=== PATIENT | female | born 2000 | race Caucasian/White ===

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

== ENCOUNTER → 2019-12-29 | Outpatient (CLI) | payer MEDICAID, SELFPAY ==
[2019-12-29 13:34] VITALS: BMI 30.5
== END | disposition home or self-care (01) ==
LOC: LABSPEC 17:00
PROVIDERS: Referring Provider Obstetrics & Gynecology; Visit Provider Obstetrics & Gynecology
DX: O20.9 Hemorrhage in early pregnancy, unspecified (principal); Z3A.00 Weeks of gestation of pregnancy not specified
CPT/HCPCS: 87086; 87088; 87186

== ENCOUNTER → 2020-01-03 14:41 | Outpatient (CLI) | payer MEDICAID, SELFPAY ==
[2019-12-29 13:34] VITALS: BMI 30.5
--- NOTE | 2020-01-03 14:42 | US_ITS ---
STUDY: FIRST TRIMESTER OBSTETRICAL ULTRASOUND REASON FOR EXAM: Female, 19 years old. Dates. Well-being. LMP: 11/18/2019. TECHNIQUE: Transvaginal TECHNICAL QUALITY: Adequate. PRIOR ULTRASOUND: None. FINDINGS: There is visualization of a single gestational sac in a normal intrauterine position. The mean sac diameter (MSD) measures 0.6 cm, indicating an estimated gestational age (EGA) of 5 weeks, 2 days. The gestational sac shape is within normal limits. There is a visualized yolk sac. The yolk sac measures 0.2 cm. The placenta is non-visualized. There is no demonstrated embryo ( pole). The estimated gestation age (EGA) by LMP is 6 weeks, days. The estimated date of delivery (MARIA T) by LMP is 11/24/2020. The estimated gestation age (EGA) by US is 5 weeks, 2 days. The estimated date of delivery (MARIA T) by US is 09/02/2020. The uterus measures 8.0 x 4.6 x 3.3 cm.. There is no demonstrated uterine fibroid. The cervix is closed. The right ovary measures 3.7 x 1.5 x 2.8 cm. There is no right ovarian cyst. There is no visualized right adnexal mass or complex lesion. Normal vascularity on DOPPLER imaging. The left ovary measures 3.8 x 2.0 x 1.8 cm. There is no left ovarian cyst. There is no visualized left adnexal mass or complex lesion. Normal vascularity on DOPPLER imaging. There is no fluid in the cul de sac. US/Init OB < 14Wks US IMPRESSION: 1. Gestational sac with yolk sac but no pole. Estimated gestational age is 5 weeks, 2 days with MARIA T of 09/02/2020. 2. Normal ovaries. Electronically Signed: Bill Escalera DO at 22:41 EDT Tel [phone], Service support ,
== END ==
PROVIDERS: Referring Provider Obstetrics & Gynecology; Visit Provider Obstetrics & Gynecology
DX: O20.0 Threatened abortion (principal)
CPT/HCPCS: 76801

== ENCOUNTER → 2020-01-10 10:17 | Outpatient (CLI) | payer MEDICAID, SELFPAY ==
[2019-12-29 13:34] VITALS: BMI 30.5
--- NOTE | 2020-01-10 10:17 | US_ITS ---
STUDY: FIRST TRIMESTER OBSTETRICAL ULTRASOUND REASON FOR EXAM: Female, 19 years old bleeding with early preg , f/u prev LMP: 11/18/2019. TECHNIQUE: Transvaginal TECHNICAL QUALITY: Adequate. PRIOR ULTRASOUND: Comparison is made with prior study dated 01/03/2020. FINDINGS: There is no demonstrated intrauterine gestational sac. There is no demonstrated yolk sac. The placenta is non-visualized. There is no demonstrated embryo ( pole). The estimated gestation age (EGA) by LMP is 7 weeks, 4 days. The estimated date of delivery (MARIA T) by LMP is 08/24/2021. The uterus measures 8.4 cm x 4.1 cm x 3.5 cm. The endometrium measures 10 mm. There is a 1.1 cm x 0.6 cm x 0.5 cm hypoechoic density within the endometrial. There is no demonstrated uterine fibroid. The cervix is closed. The right ovary measures 3 cm x 2 cm x 1.9 cm. There is no right ovarian cyst. There is no visualized right adnexal mass or complex lesion. The left ovary measures 3.2 cm x 2.5 cm x 1.4 cm. There is no left ovarian cyst. There is no visualized left adnexal mass or complex lesion. There is no fluid in the cul de sac. US/Init OB < 14Wks US IMPRESSION: No intrauterine gestation seen at this time. Electronically Signed: Chris Rai, at 12:20 EDT , Service support ,
[2020-01-10 11:45] LABS: Absolute Lymphocyte Count 1.62 X10^3/uL (0.83-4.51); Absolute Neutrophil Count 5.1 X10^3/uL (2.0-7.7); Basophil# 0.03 X10^3/uL; Basophil% 0.4 % (0-1); Eosinophil# 0.14 X10^3/uL; Eosinophils% 1.9 % (0-5); Hematocrit 40.7 % (37-47); Hemoglobin 13.7 g/dL (12.0-15.0); Lymphocyte # 1.62 X10^3/ul (4.0); Mean Corp Hgb Conc 33.7 g/dL (32-36); Mean Corpuscular Hgb 29.7 pg (27.0-32.0); Mean Corpuscular Volume 88.3 fL (81-99); Mean Platelet Vol. 9.5 fl (6.2-12.0); Monocyte# 0.47 X10^3/uL; Monocyte% 6.4 % (0-10); NRBC Flagged by Analyzer 0 % (0-5); Neutrophil # 5.11 X10^3/uL (2.7-7.7); Neutrophil % 69.2 % (47-70); Platelet Count 302 K/mm3 (150-450); RBC Distribution Width CV 12.2 % (11.6-14.6); RBC Distribution Width SD 39.4 fl (35.1-43.9); Red Blood Count 4.61 M/mm3 (4.2-5.4); White Blood Count 7.4 K/mm3 (4.4-11.0)
[2020-01-10 12:24] LABS: hCG Titer Quant., Serum 738 mIU/mL (1-3)
== END ==
PROVIDERS: Obstetrics & Gynecology; Referring Provider Obstetrics & Gynecology; Visit Provider Obstetrics & Gynecology
DX: O03.9 Complete or unspecified spontaneous abortion without complication (principal)
CPT/HCPCS: 36415; 76801; 84702; 85025

== ENCOUNTER → 2020-01-12 09:55 | Outpatient (CLI) | payer MEDICAID, SELFPAY ==
[2020-01-12 10:35] LABS: hCG Titer Quant., Serum 209 mIU/mL (1-3)
== END ==
PROVIDERS: Referring Provider Obstetrics & Gynecology; Visit Provider Obstetrics & Gynecology
DX: O03.9 Complete or unspecified spontaneous abortion without complication (principal)
CPT/HCPCS: 36415; 84702

== ENCOUNTER → 2020-07-03 15:07 | Outpatient (CLI) | payer MEDICAID, SELFPAY ==
[2020-01-15 10:11] VITALS: BMI 34.4
[2020-07-03 16:05] LABS: hCG Titer Quant., Serum 1172 mIU/mL (1-3)
== END ==
PROVIDERS: Referring Provider Obstetrics & Gynecology; Visit Provider Obstetrics & Gynecology
DX: N91.2 Amenorrhea, unspecified (principal)
CPT/HCPCS: 36415; 84702

== ENCOUNTER → 2020-07-05 13:01 | Outpatient (CLI) | payer MEDICAID, SELFPAY ==
[2020-01-15 10:11] VITALS: BMI 34.4
[2020-07-05 14:00] LABS: hCG Titer Quant., Serum 2320 mIU/mL (1-3)
== END ==
PROVIDERS: Referring Provider Obstetrics & Gynecology; Visit Provider Obstetrics & Gynecology
DX: N91.2 Amenorrhea, unspecified (principal)
CPT/HCPCS: 36415; 84702

== ENCOUNTER 2020-07-12 00:50 | Emergency (ER) | payer MEDICAID, SELFPAY ==
[2020-01-15 10:11] VITALS: BMI 34.4
[2020-07-12 00:51] VITALS: BP 149/97; PULSE 104; RESP 18; TEMP 36.7; O2SAT 97; BMI 37.3
--- NOTE | 2020-07-12 01:00 | ED.VIS.FEGU ---
History of Present Illness 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: Complaint Informant: Patient Pain: - - No pain Issue: Negative for: Vaginal bleeding, Passing clots, Passing tissue Associated Symptoms: Dysuria, Frequency, Hematuria. Negative for: Urgency Test: Positive - around 6-8 wks preg P: 0 Ab: 0 Narrative: For the past 3 to 4 hours, patient has had dysuria and hematuria. She was already urinating frequently, she is 6-8 weeks. She denies any abdominal pain, back pain, nausea, vomiting, fevers, urinating clots, or urinary retention. She denies having any vaginal bleeding, only blood in her urine when she urinates. Patient denies any injury. No other recent illness. Past Medical History - Allergies and Home Meds Allergies/Adverse Reactions: Allergies tree nut Allergy (Verified 07/12/20 00:54) Anaphylaxis Primary Care Physician: Care Physician,No Primary [Primary Care Provider] - Doctors: NAMITA Nick Past Medical History: None Lives: Spouse/ Significant Other Smoking Status: Never smoker Review of Systems General: Denies: Chills, Fever, Sweats Eyes: Denies: Visual changes - bilaterally, Diplopia ENT: Denies: Rhinorrhea, Sore throat Cardiovascular: Denies: Chest pain, Palpitations Respiratory: Denies: Dyspnea, Cough, Dyspnea on exertion Gastrointestinal: Denies: Abdominal pain, Nausea, Vomiting, Diarrhea, Melena, Hematochezia Genitourinary: Reports: Dysuria, Hematuria, Frequency Musculoskeletal: Denies: Back pain, Extremity Pain Skin: Denies: Rash, Wounds Neurological: Denies: Headache, Weakness, Numbness Physical Exam Vital Signs/Narrative: Vital Signs Temp Pulse Resp BP Pulse Ox 07/12/20 00:51 98.1 F 104 H 18 149/97 H 97 Inital Vital Signs reviewed: Yes General: Well nourished, Well developed, - - well-appearing, nad. pt has grossly mildly bloody urine with no visible clots in specimen cup. Head: Normocephalic, Atraumatic Eyes: Perrl, EOMI ENT: Moist mucous membranes, No rhinorrhea Neck: Supple, Nontender Cardiovascular: Regular rate, Regular rhythm, No murmurs. Negative for: Tachycardia Respiratory: No distress, CTA bilaterally, Chest nontender Abdomen: Soft, Nontender, Nondistended, Normal bowel sounds Back: Nontender, Normal Inspection. Negative for: CVA tenderness Extremities: Nontender, No edema Skin: Normal color, No rash Neurological: Alert, Oriented x3, Cranial nerves II-XII grossly intact, Normal Strength, Normal Sensation, Normal Gait Psychological: Normal affect, Normal Mood Diagnostic/Tx/Re-eval Laboratory Tests 07/12/20 Range/Units 00:59 Urine Color Red (Yellow) Urine Clarity Cloudy (Clear) Urine pH 5.0 (5.0 - 8.0) Ur Specific [place] 1.015 (1.002-1.030) Urine Protein 100 H (Negative) mg/dl Urine Glucose (UA) Normal (Normal) mg/dl Urine Ketones 15 H (Negative) mg/dl Urine Occult Blood 250 H (Negative) /ul Urine Nitrite Negative (Negative) Urine Bilirubin Negative (Negative) mg/dL Urine Urobilinogen Normal (Normal) mg/dl Ur Leukocyte Esterase 500 H (Negative) /ul Urine RBC > 100 SEEN (0-5) /hpf Urine WBC 50-100 SEEN (0-5) /hpf Ur Squamous Epith Cells 0 SEEN (5-10) /hpf Urine Bacteria 0 SEEN (None Seen) /hpf Urine Mucus 0 SEEN (<or=2+) /hpf - Medical Decision/Diagnostic Studies Urinalysis consistent with infection, which is the most likely etiology of her hematuria. Discussed reasons to return especially urinary retention, fevers chills, or symptoms of pyelonephritis, but at this time she does not have any of that so we will treating her with Macrobid would be reasonable. Sent for culture advised to follow-up. ED Disposition - Plan for ED Patient: Disposition: Home or Assisted Living Diagnosis: Hemorrhagic cystitis, First trimester Instructions: ED Bladder Infection, Female (Adult) Prescriptions: Nitrofurantoin Macrocrystals [Macrobid] 100 mg PO Q12 #14 capsule Prescription Printed Referrals: Liset Nick MD [STAFF PHYSICIAN] - 3-5 Days if not improving
[2020-07-12 01:06] LABS: Bacteria 0 SEEN /hpf (None Seen); Mucous, Urine 0 SEEN /hpf (<or=2+); Squamous Epithelial Cells - UA 0 SEEN /hpf (5-10)
[2020-07-12 01:08] LABS: Color, Urine Red (Yellow); Glucose, Dipstick Normal (Normal); Ketone-Dipstick 15 mg/dl (Negative); Leukocyte Esterase-Dipstick 500 /ul (Negative); Nitrite-Dipstick Negative (Negative); Occult Blood-Urine 250 /ul (Negative); Protein-Dipstick 100 mg/dl (Negative); Specific Gravity, Urine 1.015 (1.002-1.030); Urine Bilirubin Dipstick Negative (Negative); Urine Clarity Cloudy (Clear); Urine Urobilinogen Normal (Normal)
[2020-07-12 01:15] LABS: White Blood Cells 50-100 SEEN /hpf (0-5)
[2020-07-12 01:16] LABS: Red Blood Cells-Urine > 100 SEEN /hpf (0-5)
[2020-07-12] MEDS: Nitrofurantoin Macrocrystals 100 MG Capsule PO (01:27)
== END 2020-07-12 01:30 | disposition home or self-care (01) ==
PROVIDERS: Emergency Provider Emergency Medicine
DX: O23.11 Infections of bladder in pregnancy, first trimester (principal); Z3A.01 Less than 8 weeks gestation of pregnancy
CPT/HCPCS: 36415; 81001; 84702; 87086; 87088; 87186; 99283

== ENCOUNTER → 2020-07-12 12:52 | Outpatient (CLI) | payer MEDICAID, SELFPAY ==
[2020-07-12 00:51] VITALS: BMI 37.3
[2020-07-12 13:58] LABS: hCG Titer Quant., Serum 21802 mIU/mL (1-3)
== END ==
PROVIDERS: Referring Provider Obstetrics & Gynecology; Visit Provider Obstetrics & Gynecology
DX: N30.91 Cystitis, unspecified with hematuria (principal)
CPT/HCPCS: 36415; 84702

== ENCOUNTER → 2020-08-05 | Outpatient (CLI) | payer MEDICAID, SELFPAY ==
[2020-08-05 09:27] VITALS: BMI 37.3
[2020-08-05 14:41] LABS: Amphetamine Urine VISTA NEGATIVE (<1000 ng/mL); Barbiturate Urine VISTA NEGATIVE (< 200 ng/mL); Benzodiazepine Urine VISTA NEGATIVE (< 200 ng/mL); Cocaine Urine VISTA NEGATIVE (< 300 ng/mL); Ecstacy Urine VISTA NEGATIVE (< 500 ng/mL); Methadone Urine VISTA NEGATIVE (< 300 ng/mL); PCP Urine VISTA NEGATIVE (< 25 ng/mL); THC Urine VISTA NEGATIVE (< 50 ng/mL); Vista UDS pH Range 6
[2020-08-06 20:07] LABS: Chlamydia By Nucleic Acid AMP Negative (Negative)
[2020-08-07 12:47] LABS: Gonococcus By Nucleic Acid AMP Negative (Negative)
[2020-08-07 16:48] LABS: HPV Reflexed? NOT INDICATED
== END | disposition home or self-care (01) ==
LOC: LABSPEC 13:01
PROVIDERS: Referring Provider Obstetrics & Gynecology; Visit Provider Obstetrics & Gynecology
DX: Z34.90 Encounter for supervision of normal pregnancy, unspecified, unspecified trimester (principal); Z12.4 Encounter for screening for malignant neoplasm of cervix; Z11.3 Encounter for screening for infections with a predominantly sexual mode of transmission
CPT/HCPCS: 80307; 87077; 87086; 87088; 87186; 87491; 87591; 88175; G0145

== ENCOUNTER → 2020-08-19 10:20 | Outpatient (CLI) | payer MEDICAID, SELFPAY ==
[2020-08-05 09:27] VITALS: BMI 37.3
[2020-08-19 10:58] LABS: Absolute Lymphocyte Count 1.62 X10^3/uL (0.83-4.51); Absolute Neutrophil Count 6.1 X10^3/uL (2.0-7.7); Basophil# 0.02 X10^3/uL; Basophil% 0.2 % (0-1); Eosinophil# 0.06 X10^3/uL; Eosinophils% 0.7 % (0-5); Hematocrit 38.2 % (37-47); Hemoglobin 13.1 g/dL (12.0-15.0); Lymphocyte # 1.62 X10^3/ul (0.83-4.51); Lymphocyte % 19.4 % (19-41); Mean Corp Hgb Conc 34.3 g/dL (32-36); Mean Corpuscular Hgb 29.8 pg (27.0-32.0); Monocyte# 0.52 X10^3/uL; Monocyte% 6.2 % (0-10); NRBC Flagged by Analyzer 0 % (0-5); Neutrophil # 6.08 X10^3/uL (2.7-7.7); Neutrophil % 73.1 % (47-70); Platelet Count 270 K/mm3 (150-450); RBC Distribution Width CV 12.4 % (11.6-14.6); RBC Distribution Width SD 39.6 fl (35.1-43.9); Red Blood Count 4.39 M/mm3 (4.2-5.4); White Blood Count 8.3 K/mm3 (4.4-11.0)
[2020-08-19 11:33] LABS: Glucose Challenge Gest 1H 50g 68 mg/dL (70-140)
[2020-08-19 12:11] LABS: NATERA MAILED SPECIMEN
[2020-08-19 12:20] LABS: HIV - WCH Non-Reactive (Nonreactive); Hepatitis B Surface Antigen Non-Reactive (Nonreactive); Hepatitis C Antibody Non-Reactive (Nonreactive); Rubella IgG Reactive (Nonreactive); Syphilis Antibodies Non-reactive
== END ==
PROVIDERS: Referring Provider Obstetrics & Gynecology; Visit Provider Obstetrics & Gynecology
DX: Z34.81 Encounter for supervision of other normal pregnancy, first trimester (principal); Z31.430 Encounter of female for testing for genetic disease carrier status for procreative management
CPT/HCPCS: 36415; 82950; 85025; 86703; 86762; 86780; 86803; 86850; 86900; 86901; 87340

== ENCOUNTER → 2020-12-27 12:28 | Outpatient (CLI) | payer MEDICAID, SELFPAY ==
[2020-12-27 13:50] LABS: Absolute Lymphocyte Count 1.29 X10^3/uL (0.83-4.51); Basophil# 0.03 X10^3/uL; Basophil% 0.3 % (0-1); Eosinophil# 0.05 X10^3/uL; Eosinophils% 0.5 % (0-5); Hematocrit 37.5 % (37-47); Hemoglobin 12.3 g/dL (12.0-15.0); Lymphocyte # 1.29 X10^3/ul (0.83-4.51); Lymphocyte % 11.8 % (19-41); Mean Corp Hgb Conc 32.8 g/dL (32-36); Mean Corpuscular Hgb 29.1 pg (27.0-32.0); Mean Corpuscular Volume 88.7 fL (81-99); Monocyte# 0.46 X10^3/uL; Monocyte% 4.2 % (0-10); NRBC Flagged by Analyzer 0 % (0-5); Neutrophil # 9.03 X10^3/uL (2.7-7.7); Neutrophil % 82.2 % (47-70); Platelet Count 291 K/mm3 (150-450); RBC Distribution Width CV 13.2 % (11.6-14.6); RBC Distribution Width SD 42.7 fl (35.1-43.9); Red Blood Count 4.23 M/mm3 (4.2-5.4)
[2020-12-27 14:24] LABS: Glucose Challenge Gest 1H 50g 137 mg/dL (70-140)
== END ==
PROVIDERS: Referring Provider Obstetrics & Gynecology; Visit Provider Obstetrics & Gynecology
DX: O09.90 Supervision of high risk pregnancy, unspecified, unspecified trimester (principal); Z13.1 Encounter for screening for diabetes mellitus
CPT/HCPCS: 36415; 82950; 85025

== ENCOUNTER → 2021-01-03 06:40 | Outpatient (CLI) | payer MEDICAID, SELFPAY ==
[2021-01-03 07:43] LABS: Glucose GTT-Gestation. Fasting 86 mg/dL (<105)
== END ==
PROVIDERS: Obstetrics & Gynecology; Referring Provider Obstetrics & Gynecology; Visit Provider Obstetrics & Gynecology
DX: Z13.1 Encounter for screening for diabetes mellitus (principal)
CPT/HCPCS: 36415; 82951; 82952

== ENCOUNTER → 2021-01-08 06:37 | Outpatient (CLI) | payer MEDICAID, SELFPAY | PROVIDERS: Referring Provider Obstetrics & Gynecology; Visit Provider Obstetrics & Gynecology | DX: Z00.00 Encounter for general adult medical examination without abnormal findings (principal) ==

== ENCOUNTER → 2021-01-20 | Outpatient (CLI) | payer MEDICAID, SELFPAY | END | disposition home or self-care (01) | LOC: LABSPEC 15:50 | PROVIDERS: Referring Provider Nurse Practitioner Women's Health; Visit Provider Nurse Practitioner Women's Health | DX: N76.0 Acute vaginitis (principal) | CPT/HCPCS: 87070; 87205 ==

== ENCOUNTER → 2021-02-10 13:46 | Outpatient (CLI) | payer MEDICAID, SELFPAY ==
--- NOTE | 2021-02-10 13:48 | US_ITS ---
STUDY: SECOND AND THIRD TRIMESTER OBSTETRICAL ULTRASOUND - LIMITED REASON FOR EXAM: Female, 20 years old growth LMP: 06/01/2020. PRIOR ULTRASOUND: None. TECHNIQUE: Transabdominal TECHNICAL QUALITY: Adequate. FINDINGS: There is a single intrauterine fetus. The fetus is in a cephalic presentation. There is demonstrated cardiac activity with a heart rate of 158 bpm. There is a normal amniotic fluid volume. The largest amniotic fluid pocket measures 5.73 cm. The amniotic fluid index (CHER) is 14.65 cm. The placenta is anterior in location and is not low lying. There are Grade 2 placental changes. BIOMETRY: BPD: 8.67 cm: 34 weeks, 6 days HC: 31.69 cm: 35 weeks, 4 days AC: 33.99 cm: 37 weeks, 6 days FL: 7.06 cm: 37 weeks, 1 days Age by LMP: 36 weeks, 2 days. MARIA T by LMP: 03/08/2021. age by current US: 37 weeks, 1 days. MARIA T by current US: 03/09/2021. Estimated weight: 3105 grams, +/- 466 grams, 73 percentile. US/OB Limited With Biometrics IMPRESSION: Single live uterine gestation with a mean gestational age of 37 weeks and 1 day. Electronically Signed: Chris Rai MD at 10:41 EST , Service support ,
== END ==
PROVIDERS: Referring Provider Obstetrics & Gynecology; Visit Provider Obstetrics & Gynecology
DX: O09.93 Supervision of high risk pregnancy, unspecified, third trimester (principal); O99.213 Obesity complicating pregnancy, third trimester; E66.9 Obesity, unspecified; Z3A.37 37 weeks gestation of pregnancy
CPT/HCPCS: 76816

== ENCOUNTER 2021-03-02 06:45 | Inpatient (IN) | payer MEDICAID, SELFPAY ==
[2021-03-02] VITALS (132 sets, daily range): BP systolic 95–143; BP diastolic 56–87; PULSE 54–164; TEMP 36–37.4; O2SAT 74–100; BMI 38.7
[2021-03-02] MEDS: Lactated Ringers 1,000 ML 50 ML IV (07:40)
[2021-03-02] MEDS: Oxytocin 30 units/NS 500 ml 30 UNITS/500 ML IV.SOLN IV (08:00)
[2021-03-02 08:06] LABS: Absolute Lymphocyte Count 1.73 X10^3/uL (0.83-4.51); Absolute Neutrophil Count 7.7 X10^3/uL (2.0-7.7); Basophil# 0.02 X10^3/uL; Basophil% 0.2 % (0-1); Eosinophil# 0.07 X10^3/uL; Eosinophils% 0.7 % (0-5); Hematocrit 34.3 % (37-47); Hemoglobin 11.6 g/dL (12.0-15.0); Lymphocyte # 1.73 X10^3/ul (0.83-4.51); Lymphocyte % 17.1 % (19-41); Mean Corp Hgb Conc 33.8 g/dL (32-36); Mean Corpuscular Volume 85.8 fL (81-99); Mean Platelet Vol. 9.8 fl (6.2-12.0); Monocyte# 0.57 X10^3/uL; Monocyte% 5.6 % (0-10); NRBC Flagged by Analyzer 0 % (0-5); Neutrophil # 7.65 X10^3/uL (2.7-7.7); Neutrophil % 75.8 % (47-70); Platelet Count 287 K/mm3 (150-450); RBC Distribution Width CV 13.7 % (11.6-14.6); RBC Distribution Width SD 41.8 fl (35.1-43.9); White Blood Count 10.1 K/mm3 (4.4-11.0)
[2021-03-02 08:36] LABS: Bedside Glucose 62 mg/dL (70-110)
[2021-03-02 08:36] LABS: Bedside Glucose 93 mg/dL (70-110)
--- NOTE | 2021-03-02 11:19 | HP.PCM.OB_ITS ---
HPI - General General Date of Admission: 03/02/21 HPI Narrative OSCAR VO, is a 21 F who presents Maternal Data Information MARIA T Calculator Estimated Delivery Date Method Current WG Current Estimate 03/08/21 LMP (Certain) [address] 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 Date Name GA/Weeks Outcome Route Bth Weight Gen Labor Lgth An esthesia Del [facility] Provider FOB 10/27/17 Marta 40 live - full term 8lbs 6oz Female 16.5 hours epidural [facility] Dr. Jasbir Gary Delivery Date: 10/27/17 lightly stained meconium; unable to deliver shoulder; 2nd degree episiotomy cut & then with maternal pushing effort the posterior shoulder delivered; uterine atony-cytotec $ metheringine in addition to pitocin; TAUS performed & gentle banjo curettage performed; cervical laceration 5 o'clock Nicol Pabon Visit Details Expected Delivery Route/Plan Labor Preferences- labor support person: raul labor intervention preferences: non specific pain management options preferred: epidural, loves tug of war pushing, cut cord/dad catch: yes : yes PP control planned: iud paragard? discussed possible routes of delivery and associated risks: special requests: Plans covid status: non immune, counseled regarding risk of covid in vs vaccination and declined vaccination flu vaccine: decline tdap vaccine: given rhogam: na LARC form signed: yes movement and labor precautions reviewed. Problem list reviewed and updated with the most current plan of care details and appropriate orders placed. Relevant counseling for the gestational age provided. Continue routine care and follow up unless otherwise noted in visit notes/problem list details OB Flowsheet Initial Weight: 212 lb Date -?-?-?-?-?-?-?-?-?-?-?-?- EGA Weight BP Urine Prot -?-?-?-?-?-?-?-?-?-?-?-?- Glucose FHR FuHt Pres Dilation -?-?-?-?-?-?-?-?-?-?-?-?- Effaced St Visit Note 08/05/20 -?-?-?-?-?-?-?-?-?-?-?-?- 9w 2d 212 lb (+0 oz) 120/84 -?-?-?--?-?-?-?-?-?-?-?-?- 175 -?-?-?-?-?-?-?-?-?-?-?-?- SM- CRL 2.2 cm c ons with LMP 09/13/20 -?-?-?-?-?-?-?-?-?-?-?-?- 14w 6d 206 lb 2 oz (-5 lb 14 oz) 108/70 Trace -?-?-?-?-?-?-?-?-?-?-?-?- Negative 160 -?-?-?-?-?-?-?-?-?-?-?-?- SM- no vb crampi ng 10/11/20 -?-?-?-?-?-?-?-?-?-?-?-?- 18w 6d 210 lb (-2 lb) 120/80 Negative -?-?-?-?-?-?-?-?-?-?-?-?- Negative 150 19 -?-?-?-?-?-?-?-?-?-?-?--?- SM- no vb crampi ng 11/11/20 -?-?-?-?-?-?-?-?-?-?-?-?- 23w 2d 212 lb (+0 oz) 122/82 Negative -?-?-?-?-?-?-?-?-?-?-?-?- Negative 145 23 -?-?-?-?-?-?-?-?-?-?-?-?- GP - no ctx, LOF , VB, dFM, GCT next visit. 12/06/20 -?-?-?-?-?-?-?-?-?-?-?-?- 26w 6d 214 lb 6 oz (+2 lb 6 oz) 138/80 Negative -?-?-?-?-?-?-?-?-?-?-?-?- Negative 145 28 -?-?-?-?-?-?-?-?-?-?-?-?- sm- no vb lof go od fm no regular ctx 12/27/20 -?-?-?-?-?-?-?-?-?-?-?-?- 29w 6d 216 lb 4 oz (+4 lb 4 oz) 136/86 Negative -?-?-?-?-?-?-?-?-?-?-?-?- Negative 145 29 -?-?-?-?-?-?-?-?-?-?-?-?- GP - no LOF, VB, DFM, ctx. LARC form signed. Third tri labs done - pending 01/10/21 -?-?-?-?-?-?-?-?-?-?-?-?- 31w 6d 220 lb (+8 lb) 112/82 -?-?-?-?-?-?-?-?-?-?-?-?- 135 32 -?-?-?-?-?-?-?-?-?-?-?-?- GP - no LOF, VB, DFM, ctx. Plan home BGT monitoring. 01/20/21 -?-?-?-?-?-?-?-?-?-?-?-?- 33w 2d 222 lb 2 oz (+10 lb 2 oz) 128/70 Negative -?-?-?-?-?-?-?-?-?-?-?-?- Negative 148 34 -?-?-?-?-?-?-?-?-?-?-?-?- MH-Home glucose readings X 1 wk WNL. Some increase vag discharge-culture pending. No VB, LOF. Good FM. 01/30/21 -?-?-?-?-?-?-?-?-?-?-?-?- 34w 5d 222 lb (+10 lb) 132/86 Negative -?-?-?-?-?-?-?-?-?-?-?-?- Negative 140 35 -?-?-?-?-?-?-?-?-?-?-?-?- SM- no vb lof go od fm nor egular ctx 02/12/21 -?-?-?-?-?-?-?-?-?-?-?-?- 36w 4d 225 lb 2 oz (+13 lb 2 oz) 116/80 Negative -?-?-?-?-?-?-?-?-?-?-?-?- Negative 144 36 -?-?-?-?-?-?-?-?-?-?-?-?- JV- no lof, vagi nal bleeding, or dec fm. Growth scan shows 6 1/2 lbs yesterday. plan for 39 week IOL. request sent. 02/17/21 -?-?-?-?-?-?-?-?-?-?-?-?- 37w 2d 224 lb 8 oz (+12 lb 8 oz) 120/80 Negative -?-?-?-?-?-?-?-?-?-?-?-?- Negative 145 38 Cephalic 1 -?-?-?-?-?-?-?-?-?-?-?-?- 70 -4 JV- IOL se t up for Mar 02 at 7 am. 02/27/21 -?-?-?-?-?-?-?-?-?-?-?-?- 38w 5d 223 lb (+11 lb) 100/70 Negative -?-?-?-?-?-?-?-?-?-?-?-?- Negative 140 39 Cephalic 1 -?-?-?-?-?-?-?-?-?-?-?-?- SM- no vb lof go od fm no regular ctx 03/02/21 -?-?-?-?-?-?-?-?-?-?-?-?- 39w 1d 225 lb 15.581 oz (+13 lb 15.581 oz) 111/73 123/75 117/82 117/75 -?-?-?-?-?-?-?--?-?-?-?-?- -?-?-?-?-?-?-?-?-?-?-?-?- NST FHR Rate Baby A Baseline: 130 Variability:: Moderate Accelerations:: 15 x 15 Decelerations:: None NST Reactive:: Yes FHR Category:: Category I Uterine Activity:: q3 min ROS Constitutional Constitutional: Denies change in weight, fatigue, fever(s), headache(s), poor appetite or weakness Eyes Eyes: Denies blurry vision, change in vision, seeing flashes or spots in vision ENT HEENT: Denies dizziness, headache(s), loss taste/smell or sore throat Cardiovascular Cardiovascular: Denies chest pain, dizziness, dyspnea, irregular heart rhythm, leg edema, palpitations, rapid heart rate or vomiting Respiratory/Chest Respiratory/Chest: Denies chest tightness, cough, dyspnea or breast pain Gastrointestinal Gastrointestinal: Denies abdominal pain, anorexia, constipation, cramping, diarrhea, hemorrhoids, vomiting or weight changes Genitourinary Genitourinary: Denies dysuria, flank pain, genital lesions, genital pain, urinary frequency or urinary urgency Musculoskeletal Musculoskeletal: Denies back pain, difficulty walking, joint pain, limited range of motion, muscle cramps or numbness Integumentary Integumentary: Denies lesions or unusual bruising Neurologic Neurologic: Denies abnormal movements, abnormal speech, dizziness, numbness, seizure-like activity or syncope Psychiatric Psychiatric: Denies anxiety, behavioral changes, change in appetite, change in libido, cognitive impairment, confusion, depression, difficulty concentrating, hallucinations or suicidal thoughts Endocrine Endocrinology: Denies excessive sweating, polydipsia or polyuria Hematologic/Lymphatic Hematologic/Lymphatic: Denies easy bleeding, easy bruising or lymphadenopathy Allergic/Immunologic Allergic/Immunologic: Denies itchy eyes, lip swelling, seasonal rhinorrhea, rhinitis, throat swelling, tongue swelling, eczemia, wheezing or asthma Vital Signs Vital Signs Vital Signs: 03/02/21 07:49 03/02/21 07:50 03/02/21 08:57 Temperature 97.0 F L Temperature Source Temporal Pulse Rate 77 72 Blood Pressure 111/73 123/75 H BP Systolic 111 123 BP Diastolic 73 75 Pulse Ox 98 98 03/02/21 10:05 03/02/21 10:06 03/02/21 11:03 Temperature 97.2 F L 96.8 F L Temperature Source Temporal Temporal Pulse Rate 80 87 Blood Pressure 117/82 H 117/75 BP Systolic 117 117 BP Diastolic 82 75 Pulse Ox 94 97 Weight Weight: 225 lb 15.581 oz Body Mass Index (BMI) 38.7 Physical Exam Const alert, oriented x3, no apparent distress and healthy appearing General Appearance: cooperative; Negative for anxious HEENT normocephalic Face and Sinus: normal facial exam Eyes EOMs intact bilaterally and no scleral icterus General Eye: normal appearance of both eyes Neck full ROM and supple Lymph Lymphatic: no lymphadenopathy noted Chest Chest: abnormal inspection of the chest Resp normal respiratory effort Effort and Inspection: able to speak in complete sentences Cardio regular rate GI soft to palpation and non-tender Inspection: gravid Palpation: soft; Negative for tender external exam normal OB / External & Speculum: other cx: now , membranes ruptured artificially and is clear Amniotic Fluid: clear amniotic fluid Back/Spine no CVA tenderness Extremity normal to inspection, full ROM and no clubbing, cyanosis or edema General Extremity: Negative for calf tenderness or edema Skin Lesions: no lesions Rashes: no rashes Psych mental status grossly normal Labs Labs Labs: Blood Type O POSITIVE Antibody Screen NEGATIVE Hct 34.3 % (37-47) L Hgb 11.6 g/dL (12.0-15.0) L Obstetrics US Syphilis Total Ab Non-reactive Rubella IgG Antibody Reactive (Nonreactive) Hep Bs Antigen Non-Reactive (Nonreactive) Neisseria gonorrhoeae DNA (KENNEDY) Negative (Negative) HIV 1&2 Antibody Non-Reactive (Nonreactive) Glucose 1 Hr 50 gm 137 mg/dL (70-140) Rhogam given: No Assessment & Plan (1) : QUALIFIERS: Weeks of gestation: 38 weeks Qualified Code(s): Z3A.38 - 38 weeks gestation of COMMENT: AFP declined. NIPT low risk, carrier neg. , nl anatomy (2) History of shoulder dystocia: COMMENT: mild/moderate, growth US 36 wks and IOL 39 (3) Obesity affecting : QUALIFIERS: Trimester: third trimester Qualified Code(s): O99.213 - Obesity complicating , third trimester COMMENT: 1 TM GCT, encouraged healthy weight gain (4) Supervision of high-risk : QUALIFIERS: Trimester: third trimester Qualified Code(s): O09.93 - Supervision of high risk , unspecified, third trimester COMMENT: IOL set up for 39 weeks for h/o shoulder dystocia (march 02 am) (5) GBS (group B streptococcus) UTI complicating : QUALIFIERS: Trimester: third trimester Qualified Code(s): O23.43 - Unspecified infection of urinary tract in , third trimester; B95.1 - Streptococcus, group B, as the cause of diseases classified elsewhere COMMENT: plan PCN in labor (6) Abnormal glucose affecting : COMMENT: did 1 wk of FBS and 2 hr pp testing-WNL, scanned to chart. PLAN: Patient presents IOL, plan for pitocin aug and anticipate Pain management: plans epidural. GBS positive plan IV PCN. Management of any complications: none I have reviewed the [facility] and made any clinically relevant updates.
[2021-03-02] MEDS: Penicillin G 3,000,000 Units 50 ML 100 UNITS IV ×3 (12:23→20:47)
[2021-03-02 12:30] LABS: Bedside Glucose 77 mg/dL (70-110)
[2021-03-02] MEDS: Lactated Ringers 500 ML 999 ML IV (12:32)
[2021-03-02] MEDS: fentaNYL-bupivacaine (epidural) 100 ML BAG EPIDURAL ×2 (13:33→17:38)
--- NOTE | 2021-03-02 16:31 | PCM.PN.BLA ---
Progress Note pt is laying on her side. Epidural running. She has no complaints current tracing: FHT: 135 Moderate variability reactive no decelerations category I tracing [place]: q3 min Contractions cx: 4/70/-2 Internal monitors placed reviewed tracing abnormalities since last note: no changes A/P: IOL internal monitors in. continue increasing pitocin.
[2021-03-02] MEDS: Lactated Ringers 1,000 ML 200 ML IV (16:47)
[2021-03-02] MEDS: DiphenhydrAMINE 50 MG/ML Syringe IV (16:48)
--- NOTE | 2021-03-02 19:26 | NURSING ---
Hernandes catheter inserted at 1345 by Nicol Wynne Rn dayshift according to QS documentation.
[2021-03-02] MEDS: Oxytocin 30 units/NS 500 ml 30 UNITS/500 ML IV.SOLN 334 UNITS IV (22:01)
--- NOTE | 2021-03-02 22:10 | EX.PCM.OBRPT ---
Maternal Data Information MARIA T Calculator Estimated Delivery Date Method Current Current Estimate 03/08/21 LMP (Certain) 39w 1d Vaginal Delivery Maternal Presentation Maternal Presentation: Elective Induction Maternal Presentation: 39 weeks IOL for h/o shoulder dystocia Type of Induction: Pitocin Operative Information Date of Procedure: 03/02/21 Pre-Operative Diagnosis: 39 weeks 1 day induction of labor, history of shoulder dystocia Post-Operative Diagnosis: 39 weeks 1 day induction of labor, history of shoulder dystocia Type of Anesthesia: Epidural Drain: Hernandes to straight drain Estimated Blood Loss: 200cc Time of Delivery: 22:12 Findings Description of Procedure: Patient began pushing and delivered the head in the THAD presentation. The head was delivered atraumatically and a moderate nuchal cord ?1 was identified. The anterior and posterior shoulders delivered without complication followed by the rest of the infant through the nuchal cord. Thei infant was placed on the maternal abdomen. Delayed cord clamping was employed for approximately 60 seconds. Cord was clamped and cut and gentle traction was applied to the cord and the placenta delivered spontaneously immediately following it was noted to be intact with three-vessel cord. The perineum and vagina were inspected and noted to have no laceration. EBL was 200cc. Patient and tolerated delivery well. Presentation: Vertex Amniotic Membrane Rupture Type: Artificial Amniotic Fluid Description: Clear Placental Delivery Description: Spontaneous Placenta Disposition: [facility] Cord Vessel Description: 3 Vessels Cord Entanglement: Around neck x 1, tight Nuchal Cord Compression: Without compression A Gender: Female (1 minute): 7 (5 minute): 9 Delayed Cord Clamping: Yes Post Vaginal Delivery Medications Given After Delivery: IV Pitocin Episiotomy Description: None Laceration: None Complication Complications: None Multi Select Codes Urinary/Genital Urinary/Genital CPT Codes: 41254 Vaginal Delivery Only
--- NOTE | 2021-03-02 22:14 | PCM.DC ---
Discharge Instructions Diet Discharge Diet: No restrictions Activity Discharge Activity: Return to Normal Activity, May Not Drive (while taking narcotic pain medications.) and May Shower May resume sexual activity in: 4-6 weeks Dressing / Incision Call your doctor if your incision/area has: Continuous Slow Oozing, Sudden Increased Bleeding, Increased Pain/ Swelling, Increased Redness and Foul Smelling Discharge Follow Up Care Please Follow Up With: Suyapa Fabian DO When: Call [phone] to make an appointment with your doctor in 6 weeks. If you had elevated blood pressure or 4th degree laceration, you will need to be seen in 2 weeks. Test Results: Test results from this visit will be discussed in further detail at your follow-up appointment, if applicable. Discharge Plan Admission Admit Date/Time: 03/02/21 06:45 Primary Reason for Your Visit: Vaginal delivery Attending Provider: Suyapa Fabian Primary Care Provider: Sil Castano Primary Discharge Orders/Prescriptions Prescriptions: New ibuprofen 800 mg tablet 800 mg PO Q8H PRN (Reason: pain) 7 Days Qty: 30 RF: 0 docusate sodium [Colace] 100 mg capsule 100 mg PO DAILY 15 Days Qty: 15 RF: 0 No Action (DME) blood-glucose meter Misc See Rx Instructions .ROUTE .MEDSUPPLY Qty: 1 RF: 0 (DME) Blood Glucose Test Strip See Rx Instructions .ROUTE .MEDSUPPLY Qty: 50 RF: 1 (DME) lancets [BD Ultra-Fine II Lancets] 30 gauge misc See Rx Instructions .ROUTE .MEDSUPPLY Qty: 100 RF: 0 Referrals / Follow Up: Care Physician,No Primary [Primary Care Provider] - Disposition Disposition (needs filled in before D/C Order can be placed): Home, Self Care
[2021-03-03 00:07] VITALS: BP 125/58; PULSE 94; TEMP 36.3
[2021-03-03 02:53] VITALS: BP 115/67; PULSE 89; PULSE 94; RESP 16; TEMP 36.2; O2SAT 97; O2SAT 98
--- NOTE | 2021-03-03 08:20 | PCM.PN.OB ---
Subjective Subjective Patient doing well without complaints. Tolerating PO. Ambulating and voiding without difficulty. feeding well. Denies chest pain, shortness of breath, calf pain/swelling, fevers, chills, lightheadedness. Objective Data Objective Data Vital Signs: Vital Signs Temp Pulse Resp BP Pulse Ox 97.1 F L 94 16 115/67 98 03/03/21 02:53 03/03/21 02:53 03/03/21 02:53 03/03/21 02:53 03/03/21 02:53 Oxygen Delivery Method Room Air Weight: 225 lb 15.581 oz Body Mass Index (BMI) 38.7 Intake & Output: Intake and Output for Last 24 Hours 03/01/21 03/02/21 03/03/21 23:59 23:59 23:59 Intake Total 3538.68 / 3538.68 333 / 333 Output Total 800 / 800 1100 / 1100 Balance 2738.68 / 2738.68 -767 / -767 Lab / Micro Data Result Diagrams: 03/02/21 07:40 Labs: Laboratory Results - last 24 hr 03/02/21 07:40: Blood Type O POSITIVE, Antibody Screen NEGATIVE 03/02/21 08:15: POC Glucose 62 L 03/02/21 08:32: POC Glucose 93 03/02/21 12:21: POC Glucose 77 Micro: Microbiology 03/02/21 08:07 Nasal Secretion SARS-CoV-2 Antigen (Rapid) - Final ROS Constitutional Constitutional: Reports systems reviewed and no addt'l complaints, except as documented Cardiovascular Cardiovascular: Reports systems reviewed and no addt'l complaints, except as documented Respiratory/Chest Respiratory/Chest: Reports systems reviewed and no addt'l complaints, except as documented Gastrointestinal Gastrointestinal: Reports systems reviewed and no addt'l complaints, except as documented Physical Exam Const alert, oriented x3 and no apparent distress HEENT Head and Scalp: atraumatic Resp normal respiratory effort GI soft to palpation and non-tender Bimanual Exam - Vag & Uterus: uterus non-tender Uterus Palpation: uterus fundus firm (below Umbilicus) Assessment & Plan (1) Vaginal delivery: COMMENT: IOL h/o SD, JV PLAN: s/p PPD # 1 1. routine post delivery care 2. breast feeding- support given 3. rh positive 4. rubella immune
[2021-03-03 10:00] VITALS: BP 121/79; PULSE 87; RESP 16; TEMP 36.8
[2021-03-03] MEDS: Ibuprofen 400 MG Tablet 800 MG PO ×3 (12:57→21:12)
[2021-03-03 13:02] VITALS: BP 131/81; PULSE 98; RESP 16; TEMP 36.2
[2021-03-03 16:13] VITALS: BP 130/72; PULSE 83; RESP 16; TEMP 36.1
[2021-03-03 20:10] VITALS: BP 121/72; PULSE 78; RESP 16; TEMP 36.6; O2SAT 97
[2021-03-04 03:13] VITALS: BP 129/93; PULSE 65; RESP 16; TEMP 36.6; O2SAT 97
--- NOTE | 2021-03-04 07:39 | PCM.PN.OB ---
Subjective Subjective Patient doing well without complaints. Tolerating PO. Ambulating and voiding without difficulty. Feeding well. Denies chest pain, shortness of breath, calf pain/swelling, fevers, chills, lightheadedness. Objective Data Objective Data Vital Signs: Vital Signs Temp Pulse Resp BP Pulse Ox 97.8 F 65 16 129/93 H 97 03/04/21 03:13 03/04/21 03:13 03/04/21 03:13 03/04/21 03:13 03/04/21 03:13 Oxygen Delivery Method Room Air Weight: 225 lb 15.581 oz Body Mass Index (BMI) 38.7 Intake & Output: Intake and Output for Last 24 Hours 03/02/21 03/03/21 03/04/21 23:59 23:59 23:59 Intake Total 3538.68 / 3538.68 333 / 333 Output Total 800 / 800 1100 / 1100 Balance 2738.68 / 2738.68 -767 / -767 Lab / Micro Data Result Diagrams: 03/02/21 07:40 Micro: Microbiology 03/02/21 08:07 Nasal Secretion SARS-CoV-2 Antigen (Rapid) - Final Physical Exam Const alert and oriented x3 HEENT normocephalic Eyes PERRL Neck full ROM Resp normal respiratory effort GI soft to palpation GI Narrative: FF below U Assessment & Plan (1) Vaginal delivery: COMMENT: IOL h/o SD, JV Fern PLAN: s/p PPD # 2 1. routine post delivery care 2. breast feeding- support given 3. rh positive 4. rubella immune 5. home today
[2021-03-04 08:34] VITALS: BP 110/63; PULSE 77; RESP 16; TEMP 36.1
== END 2021-03-04 09:30 | disposition home or self-care (01) | DRG 560 ==
PROVIDERS: Admitting Provider Obstetrics & Gynecology; Visit Provider Obstetrics & Gynecology
DX: O98.82 Other maternal infectious and parasitic diseases complicating childbirth (principal); N39.0 Urinary tract infection, site not specified; B95.1 Streptococcus, group B, as the cause of diseases classified elsewhere; O69.81X0 Labor and delivery complicated by cord around neck, without compression, not applicable or unspecified; Z20.822 Contact with and (suspected) exposure to COVID-19; E66.01 Morbid (severe) obesity due to excess calories; O99.214 Obesity complicating childbirth; Z91.018 Allergy to other foods; Z3A.38 38 weeks gestation of pregnancy; Z37.0 Single live birth
CPT/HCPCS: 59025; 59050; 82962; 85025; 86850; 86900; 86901; 87426; 99218; J7120; G0378

== ENCOUNTER → 2024-04-17 | Outpatient (CLI) | payer MEDICAID, SELFPAY ==
[2024-04-19 20:07] LABS: Chlamydia By Nucleic Acid AMP Negative (Negative); Gonococcus By Nucleic Acid AMP Negative (Negative)
[2024-04-21 09:45] LABS: HPV Reflexed? NOT INDICATED
== END | disposition home or self-care (01) ==
PROVIDERS: Referring Provider Obstetrics & Gynecology; Visit Provider Obstetrics & Gynecology
DX: Z12.4 Encounter for screening for malignant neoplasm of cervix (principal); O09.90 Supervision of high risk pregnancy, unspecified, unspecified trimester; Z3A.00 Weeks of gestation of pregnancy not specified
CPT/HCPCS: 87086; 87088; 87491; 87591; 88175; G0145

== ENCOUNTER → 2024-05-15 | Outpatient (CLI) | payer MEDICAID, SELFPAY ==
[2024-05-15 17:16] LABS: Absolute Lymphocyte Count 1.56 X10^3/uL (0.83-4.51); Absolute Neutrophil Count 4.8 X10^3/uL (2.0-7.7); Basophil# 0.02 X10^3/uL; Basophil% 0.3 % (0-1); Eosinophils% 1.5 % (0-5); Hematocrit 37.2 % (37-47); Hemoglobin 12.9 g/dL (12.0-15.0); Lymphocyte # 1.56 X10^3/ul (0.83-4.51); Lymphocyte % 22.7 % (19-41); Mean Corp Hgb Conc 34.7 g/dL (32-36); Mean Corpuscular Hgb 29.8 pg (27.0-32.0); Mean Corpuscular Volume 85.9 fL (81-99); Mean Platelet Vol. 10.4 fl (6.2-12.0); Monocyte# 0.34 X10^3/uL; Monocyte% 4.9 % (0-10); NRBC Flagged by Analyzer 0 % (0-5); Neutrophil # 4.83 X10^3/uL (2.7-7.7); Neutrophil % 70.2 % (47-70); Platelet Count 229 K/mm3 (150-450); RBC Distribution Width CV 12.3 % (11.6-14.6); RBC Distribution Width SD 38.6 fl (35.1-43.9); Red Blood Count 4.33 M/mm3 (4.2-5.4); White Blood Count 6.9 K/mm3 (4.4-11.0)
[2024-05-15 17:59] LABS: Syphilis Antibodies Non-reactive
[2024-05-15 18:04] LABS: Hepatitis B Surface Antigen Non-Reactive (Nonreactive)
[2024-05-15 18:38] LABS: Hepatitis C Antibody Non-Reactive (Nonreactive)
[2024-05-16 14:38] LABS: HIV - WCH Non-Reactive (Nonreactive); Rubella IgG Reactive (Nonreactive)
== END | disposition home or self-care (01) ==
LOC: BWCLAB 16:09
PROVIDERS: Obstetrics & Gynecology; Referring Provider Nurse Practitioner Women's Health; Visit Provider Nurse Practitioner Women's Health
DX: O99.210 Obesity complicating pregnancy, unspecified trimester (principal); Z3A.00 Weeks of gestation of pregnancy not specified
CPT/HCPCS: 36415; 83036; 85025; 86703; 86762; 86780; 86803; 86850; 86900; 86901; 87340

== ENCOUNTER → 2024-08-07 | Outpatient (CLI) | payer MEDICAID, SELFPAY ==
[2024-08-07 10:53] LABS: Absolute Lymphocyte Count 1.47 X10^3/uL (0.83-4.51); Absolute Neutrophil Count 8.5 X10^3/uL (2.0-7.7); Basophil# 0.04 X10^3/uL; Basophil% 0.4 % (0-1); Eosinophil# 0.14 X10^3/uL; Eosinophils% 1.3 % (0-5); Hematocrit 37.1 % (37-47); Hemoglobin 12.6 g/dL (12.0-15.0); Lymphocyte # 1.47 X10^3/ul (0.83-4.51); Lymphocyte % 13.8 % (19-41); Mean Corpuscular Hgb 29.9 pg (27.0-32.0); Mean Corpuscular Volume 88.1 fL (81-99); Monocyte# 0.43 X10^3/uL; NRBC Flagged by Analyzer 0 % (0-5); Neutrophil % 79.7 % (47-70); Platelet Count 271 K/mm3 (150-450); RBC Distribution Width CV 13.2 % (11.6-14.6); RBC Distribution Width SD 42.7 fl (35.1-43.9); Red Blood Count 4.21 M/mm3 (4.2-5.4); White Blood Count 10.7 K/mm3 (4.4-11.0)
[2024-08-07 11:45] LABS: Glucose Challenge Gest 1H 50g 120 mg/dL (70-140); HIV Nonreactive (Nonreactive); Syphilis Antibodies Nonreactive (Nonreactive)
== END | disposition home or self-care (01) ==
PROVIDERS: Referring Provider Obstetrics & Gynecology; Visit Provider Obstetrics & Gynecology
DX: O09.92 Supervision of high risk pregnancy, unspecified, second trimester (principal); Z3A.00 Weeks of gestation of pregnancy not specified; Z13.1 Encounter for screening for diabetes mellitus
CPT/HCPCS: 36415; 82950; 85025; 86703; 86780

== ENCOUNTER → 2024-10-12 | Outpatient (CLI) | payer MEDICAID, SELFPAY ==
--- NOTE | 2024-10-12 17:45 | US_ITS ---
PROCEDURE: OB LIMITED WITH BIOMETRICS 10/12/2024 REASON FOR EXAM: GROWTH TECHNIQUE: OB LIMITED WITH BIOMETRICS COMPARISON: None FINDINGS LMP: February 05, 2024. Number: 1 Position: Vertex Placental Position: Posterior and not low-lying. Placental Abnormalities: No evidence of previa. DIMENSIONS: Biparietal Diameter: 8.8 cm: 35 weeks and 3 days: 50 percentile./ Head Circumference: 31.7 cm: 35 weeks and 5 days: 18 percentile/ Abdominal Circumference: 32.7 cm: 36 weeks and 4 days: 83rd percentile/ Femur Length: 6.8 cm: 35 weeks and 0 days: 27 percentile/ ESTIMATED WEIGHT: 2859 g plus/-429 g ESTIMATED WEIGHT PERCENTILE (24+ weeks): 62 ESTIMATED GESTATIONAL AGE: Baseline: 35 weeks and 5 days By Ultrasound: 35 weeks and 4 days ESTIMATED DATE OF DELIVERY: Baseline: November 11, 2024 By Ultrasound: November 12, 2024 BIOPHYSICAL ASSESSMENT: Amniotic Fluid Volume: 5.5 cm Amniotic Fluid Index: 17.2 (8-24 cm normal range) Cardiac Motion: 143 beats per minute (average) Trunk and Limb Motion: Present. MATERNAL ANATOMY: Adnexa: Neither maternal ovary is successfully identified. US/OB Limited With Biometrics IMPRESSION: Single live intrauterine gestation with a mean gestational age of 35 weeks and 4 days. Reading Location: [facility]
== END | disposition home or self-care (01) ==
LOC: US 17:42
PROVIDERS: Referring Provider Advanced Practice Midwife; Visit Provider Advanced Practice Midwife
DX: Z36.4 Encounter for antenatal screening for fetal growth retardation (principal)
CPT/HCPCS: 76816

== ENCOUNTER → 2024-10-23 | Outpatient (CLI) | payer MEDICAID, SELFPAY | END | disposition home or self-care (01) | LOC: LABSPEC 11:39 | PROVIDERS: Visit Provider Advanced Practice Midwife | DX: O09.93 Supervision of high risk pregnancy, unspecified, third trimester (principal); Z3A.37 37 weeks gestation of pregnancy | CPT/HCPCS: 87081 ==

== ENCOUNTER 2024-11-06 06:59 | Inpatient (IN) | payer MEDICAID, SELFPAY ==
[2024-11-06] VITALS (73 sets, daily range): BP systolic 98–137; BP diastolic 55–88; PULSE 65–116; RESP 16; TEMP 36.3–37.4; O2SAT 81–100; BMI 39.4
--- OUTSIDE RECORDS SUMMARY | 2024-11-06 07:12 | XMS RPT_ITS | CCD ---
Author Organization [facility] Care Team Providers Care Fluorescent Solution Mixer Name Role Phone Care Physician, No Primary Primary Care Provider Unavailable Care Physician, No Primary Referring Provider Un available Dr. Suyapa Fabian DO Attending Provider Dr. Suyapa Fabian DO Referring Provider Sy Bailon Attending Provider [phone] Sy Bailon Referring Provider [phone] Lali Solo CNM Attending Provider [phone] Dr. Liset Nick MD Attending Provider [phone] Dr. Liset Nick MD Referring Provider [phone] Care Physician, No Primary Primary Care Provider Unavailable Care Physician, No Primary Referring Provider Un available MONIQUE WILDER Attending Unavailable NO PRIMARY CAREMD Primary Care Unavailable SY NINA Referring Unavailable NO PRIMARY CAREMD Primary Care Unavailable SY NINA Referring Unavailable MONIQUE WILDER Attending Unavailable Care Physician, No Primary Primary Care Provider Unavailable Care Physician, No Primary Referring Provider Un available Sy Bailon Attending Provider [phone] Care Physician, No Primary Primary Care Provider Unavailable Care Physician, No Primary Referring Provider Un available Lali Solo CNM Attending Provider [phone] Lali Solo CNM Referring Provider [phone] Dr. Suyapa Fabian DO Attending Provider Care Physician, No Primary Primary Care Unava ilable Care Physician, No Primary Referring Unava ilable Suyapa Fabian Attending Unavailabl e Care Physician, No Primary Primary Care Unava ilable Care Physician, No Primary Referring Unava ilable Liset Nick Attending Unavailable Care Physician, No Primary Primary Care Unava ilable Care Physician, No Primary Referring Unava ilable Anastacio GEAR AND SPLINE GRINDER, Sy Attending Unavailable Care Physician, No Primary Primary Care Unava ilable Care Physician, No Primary Referring Unava ilable Vande Suyapa Bruno Attending Unavailabl e Care Physician, No Primary Primary Care Unava ilable Care Physician, No Primary Referring Unava ilable Lali Solo Attending Unavailable Care Physician, No Primary Primary Care Unava ilable Care Physician, No Primary Referring Unava ilable [place] GEAR AND SPLINE GRINDER, Sy Attending Unavailable Care Physician, No Primary Primary Care Unava ilable Care Physician, No Primary Referring Unava ilable Marcmihai, Liset Attending Unavailable Care Physician, No Primary Primary Care Unava ilable Care Physician, No Primary Referring Unava ilable Lali Solo Attending Unavailable Care Physician, No Primary Primary Care Unava ilable Care Physician, No Primary Referring Unava ilable Lali Solo Attending Unavailable Care Physician, No Primary Primary Care Unava ilable Care Physician, No Primary Referring Unava ilable [place] GEAR AND SPLINE GRINDER, Sy Attending Unavailable Care Physician, No Primary Primary Care Unava ilable Care Physician, No Primary Referring Unava ilable Lali Solo Attending Unavailable Care Physician, No Primary Primary Care Unava ilable Care Physician, No Primary Referring Unava ilable MarcanthLiset jovel Attending Unavailable Care Physician, No Primary Primary Care Unava ilable Daylin Mcnally Attending Unavailable Care Physician, No Primary Primary Care Unava ilable Lali Solo Referring Unavailable Lali Solo Attending Unavailable Care Physician, No Primary Primary Care Unava ilable Lali Solo Attending Unavailable Care Physician, No Primary Primary Care Unava ilable [place] GEAR AND SPLINE GRINDER, Sy Referring Unavailable Anastacio GEAR AND SPLINE GRINDER, Sy Attending Unavailable Care Physician, No Primary Primary Care Unava ilable Vande Velde, Suyapa Referring Unavailabl e Vande Velde, Suyapa Attending Unavailabl e Care Physician, No Primary Primary Care Unava ilable Marcanthony, Liset Referring Unavailable Marcanthony, Liset Attending Unavailable Marcanthony, Liset Referring Unavailable Marcanthony, Liset Attending Unavailable Marcanthony, Liset Admitting Unavailable Care Physician, No Primary Primary Care Unava ilable Allergies Allergy Classification Reported Allergen(s) Allergy Type Date of Onset Reaction(s) Facility (1 source) tree nut, unspecified Drug allergy (disorder) 10-31-2024 [facility] Repository Medications Current Medications Medication Drug Class(es) Dates Sig (Normalized) Sig (Original) Multivitamin tablet (9 sources) Start: 06-12-2024 Multivitamin tablet Active 1 {tbl} PO daily June 12, 2024 12:00am Completed/Discontinued Medications Medication Drug Class(es) Dates Sig (Normalized) Sig (Original) Blood-Glucose Meter misc (9 sources) Start: 01-10-2021 End: 04-11-2021 Blood-Glucose Meter misc Discontinued 0 .ROUTE .MEDSUPPLY 1 0 January 10, 2021 12:00am April 11, 2021 4:19pm As directed Start: 01-10-2021 End: 04-11-2021 Blood-Glucose Meter misc Dis continued 0 .ROUTE .MEDSUPPLY 1 January 10, 2021 12:00am April 11, 2021 4:19pm As directed cephalexin 250 mg oral capsule (9 sources) Cephalosporin Antibacterial Start: 01-01-2020 End: 01-08-2020 take 1 capsule by mouth every six hours Cephalexin (Keflex) 250 mg capsule Discontinued 250 mg PO EVERY 6 HOURS 28 7 0 January 01, 2020 12:00am January 07, 2020 12:00am January 08, 2020 12:02am docosahexaenoic acid 200 mg oral capsule (9 sources) Start: 04-11-2021 End: 04-14-2022 Docosahexaenoic Acid ( Dha) 200 mg capsule Discontinued mg PO April 11, 2021 1:00am April 14, 2022 4:51pm docusate sodium 100 mg oral capsule (9 sources) Start: 03-02-2021 End: 04-11-2021 take 1 capsule by mouth once daily Docusate Sodium (Colace) 100 mg capsule Discontinued 100 mg PO DAILY 15 15 0 March 02, 2021 1:00am April 11, 2021 4:19pm ferrous sulfate 325 mg oral tablet (9 sources) Start: 10-26-2017 End: 12-29-2019 Ferrous Sulfate 325 MG tablet Discontinued 325 mg PO October 26, 2017 12:00am December 29, 2019 1:33pm anemia ibuprofen 800 mg oral tablet (18 sources) Nonsteroidal Anti-inflammatory Drug Start: 03-02-2021 End: 04-11-2021 take 1 tablet by mouth every eight hours as needed for pain Ibuprofen 800 mg tablet Discontinued 800 mg PO Q8H as needed for pain 30 7 0 March 02, 2021 1:00am April 11, 2021 4:19pm Start: 10-28-2017 End: 12-29-2019 take 1 tablet by mouth three times daily as needed for pain Ibuprofen 800 MG tablet Discontinued 800 mg PO 3 TIMES DAILY NEEDED as needed for Pain 60 1 October 28, 2017 12:00am December 29, 2019 1:33pm nitrofurantoin, macrocrystals 25 mg / nitrofurantoin, monohydrate 75 mg oral capsule (9 sources) Nitrofuran Antibacterial Start: 07-12-2020 End: 08-01-2020 take 1 capsule by mouth every twelve hours Nitrofurantoin Monohyd/M-Cryst 100 MG capsule Discontinued 100 mg PO EVERY 12 HOURS 14 0 July 12, 2020 12:00am August 01, 2020 10:07am Vitamins (9 sources) Start: 10-26-2017 End: 01-10-2020 Vitamins Discontinued October 26, 2017 12:00am January 10, 2020 10:59am Start: 10-26-2017 End: 01-10-2020 Vitamins Discontinu ed October 26, 2017 12:00am January 10, 2020 10:59am terconazole 4 mg/ml vaginal cream (9 sources) Azole Antifungal Start: 01-23-2021 End: 01-30-2021 Terconazole 0.4 % cream Discontinued 1 NMA VAGINAL AT BEDTIME 45 7 0 January 23, 2021 12:00am January 29, 2021 12:00am January 30, 2021 12:01am Problems Active Problems Problem Classification Problem Date Documented Da te Episodic/Chronic Diabetes or abnormal glucose tolerance complicating ; childbirth; or the puerperium (9 sources) Abnormal glucose level; Translations: [Abnormal glucose complicating ] 03-03-2021 Episodic Comment on above: did 1 wk of FBS and 2 hr pp testing-WNL, scanned to chart. Hemorrhage during ; abruptio placenta; placenta previa (20 sources) Threatened miscarriage; Translations: [Threatened ] Onset: 08-22-2024 01-15-2020 Episodic Comment on above: 01/02- GS 5mm, 01/09- GS in [place] 11x6mm with YS, cbc/serial hcgs ordered, bleeding precautions reviewed, suspicious for miscarriage plan FU 01/14 in office follow up at 28 week US 08/22/24: follow up at 28 week US 08/22/24: resolved. Immunizations and screening for infectious disease (9 sources) Requires diphtheria, tetanus and pertussis vaccination; Translations: [Encounter for immunization] 01-30-2021 Episodic Comment on above: Given 12/27 Other complications of ; puerperium affecting management of mother (20 sources) heart echogenicity on obstetric ultrasound scan; Translations: [Echogenic focus of heart of fetus affecting antepartum care of mother] 08-07-2024 Episodic Comment on above: discussed and declin ed NIPT Other complications of (20 sources) Maternal obesity complicating , childbirth and the puerperium, antepartum; Translations: [Obesity complicating , unspecified trimester] 05-15-2024 Chronic Comment on above: BMI 34.9, HgBA1C w/N OB 1 TM GCT, encouraged healthy weight gain Other complications of (1 source) Obesity complicating , second trimester; Translations: [Obesity complicating , second trimester] Onset: 10-23-2024 Chronic Other complications of (1 source) Obesity complicating , unspecified trimester; Translations: [Obesity complicating , unspecified trimester] Onset: 04-17-2024 Chronic Other complications of (20 sources) H/O: miscarriage; Translations: [Supervision of with other poor reproductive or obstetric history, unspecified trimester] 07-10-2024 Episodic Comment on above: 2019 Other complications of (20 sources) High risk ; Translations: [Supervision of high risk , unspecified, unspecified trimester] 08-07-2024 Episodic Comment on above: PRR, , MARIA T 11/11, boy Annmarie PC: Marta & Fern, : Abdirahman IOL set up for 39 we eks for h/o shoulder dystocia (march 02 am) Other complications of (9 sources) Urinary tract infection in ; Translations: [Unspecified infection of urinary tract in , unspecified trimester] 03-03-2021 Episodic Comment on above: plan PCN in labor Other complications of (20 sources) History of hemorrhage; Translations: [Supervision of with other poor reproductive or obstetric history, unspecified trimester] 04-11-2024 Episodic Comment on above: 2020 Other complications of (20 sources) History of shoulder dystocia; Translations: [Supervision of with other poor reproductive or obstetric history, unspecified trimester] 07-10-2024 Episodic Comment on above: 2017 8lb 6 ounces, 7 12 didn't have SD. plan IOL at 39 weeks growth US at 36 weeks 2018 8lb 6 ounces, 7 12 didn't have SD. plan IOL at 39 weeks growth US at 36 weeks (68% EFW at 39 weeks 3609 grams about 7.9 lbs) Other complications of (10 sources) History of urinary tract infection; Translations: [Supervision of other high risk pregnancies, unspecified trimester] 05-15-2024 Episodic Comment on above: 2020 Other complications of (1 source) Supervision of high risk , unspecified, third trimester; Translations: [Supervision of high risk , unspecified, third trimester] Onset: 11-04-2024 Episodic Other complications of (1 source) Supervision of with other poor reproductive or obstetric history, unspecified trimester; Translations: [Supervision of with other poor reproductive or obstetric history, unspecified trimester] Onset: 10-23-2024 Episodic Other complications of (1 source) Supervision of high risk , unspecified, second trimester; Translations: [Supervision of high risk , unspecified, second trimester] Onset: 08-10-2024 Episodic Other screening for suspected conditions (not mental disorders or infectious disease) (2 sources) Encounter for screening for growth retardation; Translations: [Encounter for screening for malignant neoplasm of cervix] Onset: 05-08-2024 Episodic Residual codes; unclassified (9 sources) Influenza vaccination declined; Translations: [Immunization not carried out because of patient refusal] 01-30-2021 Episodic Residual codes; unclassified (18 sources) Adopted; Translations: [Other specified health status] 07-10-2024 Episodic Comment on above: has not had contact with biological father as an infant and her biological mother at age 4 Residual codes; unclassified (1 source) 37 weeks gestation of ; Translations: [37 weeks gestation of ] Onset: 10-23-2024 Episodic Residual codes; unclassified (1 source) 34 weeks gestation of ; Translations: [34 weeks gestation of ] Onset: 10-02-2024 Episodic Residual codes; unclassified (1 source) 32 weeks gestation of ; Translations: [32 weeks gestation of ] Onset: 09-18-2024 Episodic Residual codes; unclassified (1 source) 30 weeks gestation of ; Translations: [30 weeks gestation of ] Onset: 09-04-2024 Episodic Residual codes; unclassified (1 source) 28 weeks gestation of ; Translations: [28 weeks gestation of ] Onset: 08-22-2024 Episodic Unclassified (1 source) Maternal care for other (suspected) abnormality and damage, cardiac anomalies, not applicable or unspecified; Translations: [Maternal care for other (suspected) abnormality and damage, cardiac anomalies, not applicable or unspecified] Onset: 10-23-2024 Urinary tract infections (9 sources) Hemorrhagic cystitis; Translations: [Cystitis, unspecified with hematuria] 07-13-2020 Episodic Past or Other Problems Problem Classification Problem Date Documented Date Episodic/Chronic Administrative/social admission (1 source) Encounter for adoption services; Translations: [Encounter for adoption services] Onset: 04-17-2024 Episodic Genitourinary symptoms and ill-defined conditions (1 source) Personal history of urinary (tract) infections; Translations: [Personal history of urinary (tract) infections] Onset: 04-17-2024 Episodic Other complications of (1 source) Supervision of high risk , unspecified, unspecified trimester; Translations: [Supervision of high risk , unspecified, unspecified trimester] Onset: 05-28-2024 Episodic Other complications of (1 source) Supervision of other high risk pregnancies, unspecified trimester; Translations: [Supervision of other high risk pregnancies, unspecified trimester] Onset: 04-17-2024 Episodic Other and delivery including normal (20 sources) Vaginal delivery; Translations: [Encounter for full-term uncomplicated delivery] Onset: 04-17-2024 04-11-2024 Episodic Comment on above: IOL h/o SD, JV C harity Discussed genetic te sting - undecided (carrier testing done in prior - NEG) Declines NIPT and AFP, nl anatomy AFP declined. NIPT l ow risk, carrier neg. , nl anatomy GBS neg, Discussed g enetic testing - undecided (carrier testing done in prior - NEG) Declines NIPT and AFP, nl anatomy Unclassified (9 sources) History of shoulder dystocia 03-03-2021 Comment on above: mild/moderate, growt h US 36 wks and IOL 39 Results Test Name Value Interpretation Reference Range Facility Laboratory - Chemistry and C hemistry - challengeOrdered By: Suyapa Bruno on 10-31-2024 Glucose Ql (U) Negative [facility] Laboratory - UrinalysisOrder ed By: Suyapa Bruno on 10-31-2024 Protein Ql (U) Negative [facility] Skirt Trimmer Office Visit Reporton 10-31-2024 Skirt Trimmer Office Visit Report [facility]'s [address], [address] [place] [address] OFFICE VISIT Date of Service: 10/31/24 MR#: [id number] Acct: [id number] Name: OSCAR VO Rep #: [id number] : 2000 Provider: Dr. Suyapa Mars DO Age/Sex: 24/F Location: [facility] [email or web address] Status: Signed Intake Vital Signs 07/10/24 08:54 10/23/24 09:59 10/31/24 09:59 10/31/24 10:00 Height 5 ft 4 in 5 ft 4 in 5 ft 4 in 5 ft 4 in Weight: 231 lb BMI 39.6 BP 108/76 Intake Visit Reasons: 38 WK 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 Required: No Is patient in pain?: No Allergies tree nut Allergy (Verified 10/31/24 09:54) Anaphylaxis Medications ???Medication ???Instructions ???Recorded ???Confirmed ???Type multivitamin 1 tab PO QDAY 06/12/24 10/31/24 Hi story Last Menstrual Period: 02/05/24 Zika: Zika virus screening: Negative : No PFSH PFSH Medical History Adopted Vaginal delivery hemorrhage Social History adopted: Yes household members: spouse and children housing: house number of children: 2 current occupational status: employed 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) [employer] current occupational exposures/hazards: No pets and animals: No history of recent travel: No sexually active: Yes Smoking Status: Never smoker second hand exposure: No alcohol intake: never substance use type: does not use well-balanced diet: daily or most days caffeine: No eating out: rarely or never during the past year weight has: remained stable what type of physical activity do you participate in: none and walking frequency: daily duration: 30-45 minutes/day sangeeta/religious: Orthodoxy seatbelt use: always do you feel safe at home: Yes additional social history: : Abdirahman - [employer]oney History 4 Elective abortions Hx Para 2 Spontaneous abortions 1 Hx # Term Pregnancies 2 Ectopic pregnancies Hx # Pregnancies Multiple births # of living children 2 Past Pregnancies Del. Date Name GA/Weeks Outcome Route Bth Weight Gen Labor Lgth Anesthesia Del Locatn Provider FOB 10/27/17 Marta 40 live - full term 8lbs 6oz Female 16.5 hours epidural [facility] Dr. Rhett Gary 12/28/19 6 03/02/21 Fern 39 live - full term 71b 12oz Female epidural [facility] Shannon Gary Delivery Date: 10/27/17 Last Updated by: Nicol Pabon lightly stained meconium; unable to deliver shoulder; 2nd degree episiotomy cut then with maternal pushing effort the posterior shoulder delivered; uterine atony-cytotec $ metheringine in addition to pitocin; TAUS performed gentle banjo curettage performed; cervical laceration 5 o'clock Delivery Date: 12/28/19 Last Updated by: Daylin Mcnally, RN No intervention needed Delivery Date: 03/02/21 Last Updated by: Luba Vo IOL 39 wk HPI 38 WK OB Details: OSCAR VO is a 24 year old who presents for routine OB visit. OB Visit MARIA T Calculator Estimated Delivery Date Method Current WG Current Estimate 11/11/24 LMP (Certain) 38w 3d Expected Delivery Route/Plan Labor Preferences- CB/BF classes: no labor support person: Abdirahman labor intervention preferences: [] pain management options preferred: epidural if requested cut cord/dad catch: yes : yes PP control planned: discussed discussed possible routes of delivery and associated risks: [] special requests: [] Specific Issue/Plans Covid status: [] Flu vaccine: [] Tdap vaccine: declined Rhogam: na LARC form signed: yes Problem list reviewed and updated with the most current plan of care details and appropriate orders placed. Relevant counseling for the gestational age provided. Continue routine care and follow up unless otherwise noted in visit notes/problem list details Initial Weight: Not Recorded Date -???-???-???-???-??? -???-???-???-???-??? -???-???- EGA Weight BP Urine Prot -???-???-???-???-??? -???-???-???-???-??? -???-???- Glucose FHR FuHt Pres Dilation -???-???-???-???-??? -???-???-???-???-??? -???-???- Effaced St Visit Note 04/17/24 -???-???-???-???-??? -???-???-???-???-??? -???-???- 10w 2d 219 lb 2 oz 113/73 -???-???-???-???-??? -???-???-???-???-??? -???-???- 171 -???-???-???-???-??? -???-???-???-???-??? -???-???- JV- CRL cons istent with LMP. Declines nipt. wants to do new ob labs next visit due to time restraints today. 05/15/24 -???-???-???-???-??? -???-???-???-???-??? -???-???- 14w 2d 218 lb 6 oz 122/80 Negative -???-???-???-???-??? -???-???-???-???-??? -???-???- Negative 154 -???-???-???-???-??? -???-???-???-???-??? -???-???- -No (more content not included)... Normal [facility] Rule out Beta Strep (Grp. B) on 10-25-2024 CHERELLE Group B Beta Streptococcus is not isolated. Normal [facility] Comment on above: Performed By: #### M [id number] ####[facility] [id number] [place], [address] Laboratory - Chemistry and C hemistry - challengeOrdered By: Lali Solo on 10-23-2024 Glucose Ql (U) Negative [facility] Laboratory - UrinalysisOrder ed By: Lali Solo on 10-23-2024 Protein Ql (U) Negative [facility] Skirt Trimmer Office Visit Reporton 10-23-2024 Skirt Trimmer Office Visit Report [facility]'s [address], [address] [place] [address] OFFICE VISIT Date of Service: 10/23/24 MR#: [id number] Acct: [id number] Name: GILBERTOSCAR VILLA NEIL Rep #: [id number] : 2000 Provider: [facility] Age/Sex: 24/F Location: [facility] [place] Status: Signed Intake Vital Signs 07/10/24 08:54 10/02/24 10:00 10/23/24 09:59 Height 5 ft 4 in 5 ft 4 in 5 ft 4 in Weight: 229 lb 6 oz BMI 39.3 BP 127/82 H Intake Visit Reasons: 37 WK OB/GBS (WAS ON VACAY) 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: 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 Is patient in pain?: No Allergies tree nut Allergy (Verified 10/23/24 09:57) Anaphylaxis Medications ???Medication ???Instructions ???Recorded ???Confirmed ???Type multivitamin 1 tab PO QDAY 06/12/24 10/23/24 Hi story Last Menstrual Period: 02/05/24 : No 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[employer]) [employer] current occupational exposures/hazards: No pets and animals: No history of recent travel: No sexually active: Yes Smoking Status: Never smoker second hand exposure: No alcohol intake: never substance use type: does not use well-balanced diet: daily or most days caffeine: No eating out: rarely or never during the past year weight has: remained stable what type of physical activity do you participate in: none and walking frequency: daily duration: 30-45 minutes/day sangeeta/religious: Orthodoxy seatbelt use: always do you feel safe at home: Yes additional social history: : Abdirahman [employer] History 4 Elective abortions Hx Para 2 Spontaneous abortions 1 Hx # Term Pregnancies 2 Ectopic pregnancies Hx # Pregnancies Multiple births # of living children 2 Past Pregnancies Del. Date Name GA/Weeks Outcome Route Bth Weight Gen Labor Lgth Anesthesia Del Locatn Provider FOB 10/27/17 Marta 40 live - full term 8lbs 6oz Female 16.5 hours epidural [facility] Dr. Rhett Gary 12/28/19 6 03/02/21 Fern 39 live - full term 71b 12oz Female epidural [facility] Shannon Gary Delivery Date: 10/27/17 Last Updated by: Nicol Pabon lightly stained meconium; unable to deliver shoulder; 2nd degree episiotomy cut then with maternal pushing effort the posterior shoulder delivered; uterine atony-cytotec $ metheringine in addition to pitocin; TAUS performed gentle banjo curettage performed; cervical laceration 5 o'clock Delivery Date: 12/28/19 Last Updated by: Daylin Mcnally RN No intervention needed Delivery Date: 03/02/21 Last Updated by: Luba Vo IOL 39 wk HPI 37 WK OB/GBS (WAS ON VACAY) Details: OSCAR VO is a 24 year old who presents for routine OB visit. OB Visit MARIA T Calculator Estimated Delivery Date Method Current WG Current Estimate 11/11/24 LMP (Certain) 37w 2d Expected Delivery Route/Plan Labor Preferences- CB/BF classes: no labor support person: Abdirahman labor intervention preferences: [] pain management options preferred: epidural if requested cut cord/dad catch: yes : yes PP control planned: discussed discussed possible routes of delivery and associated risks: [] special requests: [] Specific Issue/Plans Covid status: [] Flu vaccine: [] Tdap vaccine: declined Rhogam: na LARC form signed: yes Problem list reviewed and updated with the most current plan of care details and appropriate orders placed. Relevant counseling for the gestational age provided. Continue routine care and follow up unless otherwise noted in visit notes/problem list details Initial Weight: Not Recorded Date -???-???-???-???-??? -???-???-???-???-??? -???-???- EGA Weight BP Urine Prot -???-???-???-???-??? -???-???-???-???-??? -???-???- Glucose FHR FuHt Pres Dilation -???-???-???-???-??? -???-???-???-???-??? -???-???- Effaced St Visit Note 04/17/24 -???-???-???-???-??? -???-???-???-???-??? -???-???- 10w 2d 219 lb 2 oz 113/73 -???-???-???-???-??? -???-???-???-???-??? -???-???- 171 -???-???-???-???-??? -???-???-???-???-??? -???-???- JV- CRL cons istent with LMP. Declines nipt. wants to do new ob labs next visit due to time restraints today. 05/15/24 -???-???-???-???-??? -???-???-???-???-??? -???-???- 14w 2d 218 lb 6 oz 122/80 Negative -???-???-???-???-??? -???-???-???-???-??? -???-???- Negative 154 -???-???-???-???-??? -???-???-???-???-??? -???-???- MH-No VB. Br ief (more content not included)... Normal [facility] Screening beta-hemolytic Str eptococcus cultureOrdered By: Lali Solo on 10-23-2024 Beta-hemolytic Streptococcus culture Group B Beta Streptococcus is not isolated. [facility] OB Limited With Biometricson 10-12-2024 OB Limited With Biometrics [facility] Imaging Services [address] [place] [address] [id number] OB Limited With Biometrics MR#: [id number] Acct: [id number] Name: OSCAR VO Rep #: [id number] : 2000 F 24 From: Chris appiah MD PCP: Care Physician,No Primary Status: REG CLI Study: OB Limited With Biometrics Date of Exam: 10/12 Exam# [id number] Ordering Dr: Lali SoloM PROCEDURE: OB LIMITED WITH BIOMETRICS 10/12/2024 REASON FOR EXAM: GROWTH TECHNIQUE: OB LIMITED WITH BIOMETRICS COMPARISON: None FINDINGS LMP: February 05, 2024. Number: 1 Position: Vertex Placental Position: Posterior and not low-lying. Placental Abnormalities: No evidence of previa. DIMENSIONS: Biparietal Diameter: 8.8 cm: 35 weeks and 3 days: 50 percentile./ Head Circumference: 31.7 cm: 35 weeks and 5 days: 18 percentile/ Abdominal Circumference: 32.7 cm: 36 weeks and 4 days: 83rd percentile/ Femur Length: 6.8 cm: 35 weeks and 0 days: 27 percentile/ ESTIMATED WEIGHT: 2859 g plus/-429 g ESTIMATED WEIGHT PERCENTILE (24+ weeks): 62 ESTIMATED GESTATIONAL AGE: Baseline: 35 weeks and 5 days By Ultrasound: 35 weeks and 4 days ESTIMATED DATE OF DELIVERY: Baseline: November 11, 2024 By Ultrasound: November 12, 2024 BIOPHYSICAL ASSESSMENT: Amniotic Fluid Volume: 5.5 cm Amniotic Fluid Index: 17.2 (8-24 cm normal range) Cardiac Motion: 143 beats per minute (average) Trunk and Limb Motion: Present. MATERNAL ANATOMY: Adnexa: Neither maternal ovary is successfully identified. US/OB Limited With Biometrics IMPRESSION: Single live intrauterine gestation with a mean gestational age of 35 weeks and 4 days. 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 Normal [facility] Laboratory - Chemistry and C hemistry - challengeOrdered By: Lali Solo on 10-02-2024 Glucose Ql (U) Negative [facility] Laboratory - UrinalysisOrder ed By: Lali Solo on 10-02-2024 Protein Ql (U) Negative [facility] Skirt Trimmer Office Visit Reporton 10-02-2024 Skirt Trimmer Office Visit Report [facility] [address], [address] [place] [address] OFFICE VISIT Date of Service: 10/02/24 MR#: [id number] Acct: [id number] Name: OSCAR VO NEIL Rep #: [id number] : 2000 Provider: PRAUL Pizano ams Age/Sex: 24/F Location: [facility] Status: Signed Intake Vital Signs 07/10/24 08:54 09/18/24 09:51 10/02/24 10:00 Height 5 ft 4 in 5 ft 4 in 5 ft 4 in Weight: 223 lb 2 oz 225 lb BMI 38.2 38.6 BP 117/79 115/76 Intake Visit Reasons: 34 WK OB 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: 34wk 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 Required: No Is patient in pain?: No Allergies tree nut Allergy (Verified 10/02/24 09:58) Anaphylaxis Medications ???Medication ???Instructions ???Recorded ???Confirmed ???Type multivitamin 1 tab PO QDAY 06/12/24 10/02/24 Hi story Last Menstrual Period: 02/05/24 : No PFSH PFSH Medical History Adopted Vaginal delivery hemorrhage Social History adopted: Yes household members: spouse and children housing: house number of children: 2 current occupational status: employed 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[employer]) [place] current occupational exposures/hazards: No pets and animals: No history of recent travel: No sexually active: Yes Smoking Status: Never smoker second hand exposure: No alcohol intake: never substance use type: does not use well-balanced diet: daily or most days caffeine: No eating out: rarely or never during the past year weight has: remained stable what type of physical activity do you participate in: none and walking frequency: daily duration: 30-45 minutes/day sangeeta/religious: Orthodoxy seatbelt use: always do you feel safe at home: Yes additional social history: : Abdirahman - Toney History 4 Elective abortions Hx Para 2 Spontaneous abortions 1 Hx # Term Pregnancies 2 Ectopic pregnancies Hx # Pregnancies Multiple births # of living children 2 Past Pregnancies Del. Date Name GA/Weeks Outcome Route Bth Weight Gen Labor Lgth Anesthesia Del Locatn Provider FOB 10/27/17 Marta 40 live - full term 8lbs 6oz Female 16.5 hours epidural [facility] Dr. Rhett Gary 12/28/19 6 03/02/21 Fern 39 live - full term 71b 12oz Female epidural [facility] Shannon Gary Delivery Date: 10/27/17 Last Updated by: Nicol Pabon lightly stained meconium; unable to deliver shoulder; 2nd degree episiotomy cut then with maternal pushing effort the posterior shoulder delivered; uterine atony-cytotec $ metheringine in addition to pitocin; TAUS performed gentle banjo curettage performed; cervical laceration 5 o'clock Delivery Date: 12/28/19 Last Updated by: Daylin Mcnally RN No intervention needed Delivery Date: 03/02/21 Last Updated by: Luba Vo IOL 39 wk HPI 34 WK OB Details: OSCAR VO is a 24 year old who presents for routine OB visit. OB Visit MARIA T Calculator Estimated Delivery Date Method Current WG Current Estimate 11/11/24 LMP (Certain) 34w 2d Expected Delivery Route/Plan Labor Preferences- CB/BF classes: no labor support person: Abdirahman labor intervention preferences: [] pain management options preferred: epidural if requested cut cord/dad catch: yes : yes PP control planned: discussed discussed possible routes of delivery and associated risks: [] special requests: [] Specific Issue/Plans Covid status: [] Flu vaccine: [] Tdap vaccine: declined Rhogam: na LARC form signed: yes Problem list reviewed and updated with the most current plan of care details and appropriate orders placed. Relevant counseling for the gestational age provided. Continue routine care and follow up unless otherwise noted in visit notes/problem list details Initial Weight: Not Recorded Date -???-???-???-???-??? -???-???-???-???-??? -???-???- EGA Weight BP Urine Prot -???-???-???-???-??? -???-???-???-???-??? -???-???- Glucose FHR FuHt Pres Dilation -???-???-???-???-??? -???-???-???-???-??? -???-???- Effaced St Visit Note 04/17/24 -???-???-???-???-??? -???-???-???-???-??? -???-???- 10w 2d 219 lb 2 oz 113/73 -???-???-???-???-??? -???-???-???-???-??? -???-???- 171 -???-???-???-???-??? -???-???-???-???-??? -???-???- JV- CRL cons istent with LMP. Declines nipt. wants to do new ob labs next visit due to time restraints today. 05/15/24 -???-???-???-???-??? -???-???-???-???-??? -???-???- 14w 2d 218 lb 6 oz 122/80 Negative -???-???-???-???-??? -???-???-???-???-??? -???-???- Negative 154 -???-???-???-???-??? -???-???-???-???-??? -???-???- MH-No VB. Br ief US confirm live IUP. (more content not included)... Normal [facility] Laboratory - Chemistry and C hemistry - challengeOrdered By: Liset Nick on 09-18-2024 Glucose Ql (U) Negative [facility] Laboratory - UrinalysisOrder ed By: Liset Nick on 09-18-2024 Protein Ql (U) Negative [facility] Skirt Trimmer Office Visit Reporton 09-18-2024 Skirt Trimmer Office Visit Report [facility] [address], [address] [place] [address] OFFICE VISIT Date of Service: 09/18/24 MR#: [id number] Acct: [id number] Name: OSCAR VO Rep #: [id number] : 2000 Provider: Dr. Liset taylor MD Age/Sex: 24/F Location: [facility] Status: Signed Intake Vital Signs 07/10/24 08:54 09/04/24 10:04 09/18/24 09:51 Height 5 ft 4 in 5 ft 4 in 5 ft 4 in Weight: 223 lb 2 oz BMI 38.2 BP 117/79 Intake Visit Reasons: 32 WK 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 Required: No Is patient in pain?: No Allergies tree nut Allergy (Verified 09/18/24 09:54) Anaphylaxis Medications ???Medication ???Instructions ???Recorded ???Confirmed ???Type multivitamin 1 tab PO QDAY 06/12/24 09/18/24 Hi story Last Menstrual Period: 02/05/24 Zika: Zika virus screening: Negative : No PFSH PFSH Medical History Adopted Vaginal delivery hemorrhage Social History adopted: Yes household members: spouse and children housing: house number of children: 2 current occupational status: employed 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[employer]) [employer] current occupational exposures/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: No pets and animals: No history of recent travel: No sexually active: Yes Smoking Status: Never smoker second hand exposure: No alcohol intake: never substance use type: does not use well-balanced diet: daily or most days caffeine: No eating out: rarely or never during the past year weight has: remained stable what type of physical activity do you participate in: none and walking frequency: daily duration: 30-45 minutes/day sangeeta/religious: Orthodoxy seatbelt use: always do you feel safe at home: Yes additional social history: : Abdirahman - Toney History 4 Elective abortions Hx Para 2 Spontaneous abortions 1 Hx # Term Pregnancies 2 Ectopic pregnancies Hx # Pregnancies Multiple births # of living children 2 Past Pregnancies Del. Date Name GA/Weeks Outcome Route Bth Weight Gen Labor Lgth Anesthesia Del Locatn Provider FOB 10/27/17 Marta 40 live - full term 8lbs 6oz Female 16.5 hours epidural [facility] Dr. Rhett Gary 12/28/19 6 03/02/21 Fern 39 live - full term 71b 12oz Female epidural [facility] Shannon Gary Delivery Date: 10/27/17 Last Updated by: Nicol Pabon lightly stained meconium; unable to deliver shoulder; 2nd degree episiotomy cut then with maternal pushing effort the posterior shoulder delivered; uterine atony-cytotec $ metheringine in a ddition to pitocin; TAUS performed gentle banjo curettage performed; cervical laceration 5 o'clock Delivery Date: 12/28/19 Last Updated by: Daylin Mcnally RN No intervention needed Delivery Date: 03/02/21 Last Updated by: Luba Vo IOL 39 wk HPI 32 WK OB Details: OSCAR VO is a 24 year old who presents for routine OB visit. OB Visit MARIA T Calculator Estimated Delivery Date Method Current WG Current Estimate 11/11/24 LMP (Certain) 32w 2d Expected Delivery Route/Plan Labor Preferences- CB/BF classes: no labor support person: Abdirahman labor intervention preferences: [] pain management options preferred: epidural if requested cut cord/dad catch: yes : yes PP control planned: discussed discussed possible routes of delivery and associated risks: [] special requests: [] Specific Issue/Plans Covid status: [] Flu vaccine: [] Tdap vaccine: declined Rhogam: na LARC form signed: yes Problem list reviewed and updated with the most current plan of care details and appropriate orders placed. Relevant counseling for the gestational age provided. Continue routine care and follow up unless otherwise noted in visit notes/problem list details Initial Weight: Not Recorded Date -???-???-???-???-??? -???-???-???-???-??? -???-???- EGA Weight BP Urine Prot -???-???-???-???-??? -???-???-???-???-??? -???-???- Glucose FHR FuHt Pres Dilation -???-???-???-???-??? -???-???-???-???-??? -???-???- Effaced St Visit Note 04/17/24 -???-???-???-???-??? -???-???-???-???-??? -???-???- 10w 2d 219 lb 2 oz 113/73 -???-???-???-???-??? -???-???-???-???-??? -???-???- 171 -???-???-???-???-??? -???-???-???-???-??? -???-???- JV- CRL cons istent with LMP. Declines nipt. wants to do new ob labs next visit due to time restraints today. 05/15/24 -???-???-???-???-??? -???-???-???-???-??? -???-???- 14w 2d 218 lb 6 oz 122/80 Negative -???-???-???-???-??? -???-???-???-???-??? -???-???- Negative 154 -???-???-???-???-??? -???-???-???-???-??? -???-???- -No VB. Br ief US confirm live (more content not included)... Normal [facility] - Chemistry and C hemistry - challengeOrdered By: Sy Nina on 09-04-2024 Glucose Ql (U) Negative [facility] Laboratory - UrinalysisOrder ed By: Sy Nina on 09-04-2024 Protein Ql (U) Negative [facility] Skirt Trimmer Office Visit Reporton 09-04-2024 Skirt Trimmer Office Visit Report [facility] [address], [address] [place] [address] OFFICE VISIT Date of Service: 09/04/24 MR#: [id number] Acct: [id number] Name: OSCAR VO Rep #: [id number] : 2000 Provider: ALICIA pedro Age/Sex: 24/F Location: [facility] Status: Signed Intake Vital Signs 07/10/24 08:54 08/22/24 10:56 09/04/24 10:04 Height 5 ft 4 in 5 ft 4 in 5 ft 4 in Weight: 219 lb 6 oz BMI 37.6 BP 107/71 Intake Visit Reasons: 30 WK OB 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: 30 Week 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 Required: No Is patient in pain?: No Allergies tree nut Allergy (Verified 09/04/24 10:04) Anaphylaxis Medications ???Medication ???Instructions ???Recorded ???Confirmed ???Type multivitamin 1 tab PO QDAY 06/12/24 09/04/24 Hi story Last Menstrual Period: 02/05/24 Zika: Zika virus screening: Negative : No PFSH PFSH Medical History Adopted Vaginal delivery hemorrhage Social History adopted: Yes household members: spouse and children housing: house number of children: 2 current occupational status: employed 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[place] current occupational exposures/hazards: No pets and animals: No history of recent travel: No sexually active: Yes Smoking Status: Never smoker second hand exposure: No alcohol intake: never substance use type: does not use well-balanced diet: daily or most days caffeine: No eating out: rarely or never during the past year weight has: remained stable what type of physical activity do you participate in: none and walking frequency: daily duration: 30-45 minutes/day sangeeta/religious: Orthodoxy seatbelt use: always do you feel safe at home: Yes additional social history: : Abdirahman - Toney History 4 Elective abortions Hx Para 2 Spontaneous abortions 1 Hx # Term Pregnancies 2 Ectopic pregnancies Hx # Pregnancies Multiple births # of living children 2 Past Pregnancies Del. Date Name GA/Weeks Outcome Route Bth Weight Gen Labor Lgth Anesthesia Del Locatn Provider FOB 10/27/17 Marta 40 live - full term 8lbs 6oz Female 16.[address] [facility] [address] Rhett Gary 12/28/19 6 03/02/21 Fern 39 live - full term 71b 12oz Female epidural [facility] Shannon Gary Delivery Date: 10/27/17 Last Updated by: Nicol Pabon lightly stained meconium; unable to deliver shoulder; 2nd degree episiotomy cut then with maternal pushing effort the posterior shoulder delivered; uterine atony-cytotec $ metheringine in addition to pitocin; TAUS performed gentle banjo curettage performed; cervical laceration 5 o'clock Delivery Date: 12/28/19 Last Updated by: Daylin Mcnally RN No intervention needed Delivery Date: 03/02/21 Last Updated by: Luba Vo IOL 39 wk HPI 30 WK OB Details: OSCAR VO is a 24 year old who presents for routine OB visit. OB Visit MARIA T Calculator Estimated Delivery Date Method Current WG Current Estimate 11/11/24 LMP (Certain) 30w 2d Expected Delivery Route/Plan Labor Preferences- CB/BF classes: no labor support person: Abdirahman labor intervention preferences: [] pain management options preferred: epidural if requested cut cord/dad catch: yes : yes PP control planned: discussed discussed possible routes of delivery and associated risks: [] special requests: [] Specific Issue/Plans Covid status: [] Flu vaccine: [] Tdap vaccine: declined Rhogam: na LARC form signed: yes Problem list reviewed and updated with the most current plan of care details and appropriate orders placed. Relevant counseling for the gestational age provided. Continue routine care and follow up unless otherwise noted in visit notes/problem list details Initial Weight: Not Recorded Date -???-???-???-???-??? -???-???-???-???-??? -???-???- EGA Weight BP Urine Prot -???-???-???-???-??? -???-???-???-???-??? -???-???- Glucose FHR FuHt Pres Dilation -???-???-???-???-??? -???-???-???-???-??? -???-???- Effaced St Visit Note 04/17/24 -???-???-???-???-??? -???-???-???-???-??? -???-???- 10w 2d 219 lb 2 oz 113/73 -???-???-???-???-??? -???-???-???-???-??? -???-???- 171 -???-???-???-???-??? -???-???-???-???-??? -???-???- JV- CRL cons istent with LMP. Declines nipt. wants to do new ob labs next visit due to time restraints today. 05/15/24 -???-???-???-???-??? -???-???-???-???-??? -???-???- 14w 2d 218 lb 6 oz 122/80 Negative -???-???-???-???-??? -???-???-???-???-??? -???-???- Negative 154 -???-???-???-???-??? -???-???-???-???-??? -???-???- MH-No VB. (more content not included)... Normal [facility] Laboratory - Chemistry and C hemistry - challengeOrdered By: Lali Solo on 08-22-2024 Glucose Ql (U) Negative [facility] Laboratory - UrinalysisOrder ed By: Lali Solo on 08-22-2024 Protein Ql (U) Negative [facility] Skirt Trimmer Office Visit Reporton 08-22-2024 Skirt Trimmer Office Visit Report [facility] [address], [address] [place] [address] OFFICE VISIT Date of Service: 08/22/24 MR#: [id number] Acct: [id number] Name: OSCAR VO Rep #: [id number] : 2000 Provider: PARUL Pizano ams Age/Sex: 24/F Location: [facility] Status: Signed Intake Vital Signs 07/10/24 08:54 08/07/24 09:50 08/22/24 10:56 Height 5 ft 4 in 5 ft 4 in 5 ft 4 in Weight: 217 lb BMI 37.2 BP 120/82 H Intake Visit Reasons: 28 wk ob 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: 28wk 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 Required: No Is patient in pain?: No Allergies tree nut Allergy (Verified 08/22/24 10:53) Anaphylaxis Medications ???Medication ???Instructions ???Recorded ???Confirmed ???Type multivitamin 1 tab PO QDAY 06/12/24 08/22/24 Hi story Last Menstrual Period: 02/05/24 Have you fallen in the past year?: No PFSH PFSH Medical History Adopted Vaginal delivery hemorrhage Social History adopted: Yes household members: spouse and children housing: house number of children: 2 current occupational status: employed 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) [employer] current occupational exposures/hazards: No pets and animals: No history of recent travel: No sexually active: Yes Smoking Status: Never smoker second hand exposure: No alcohol intake: never substance use type: does not use well-balanced diet: daily or most days caffeine: No eating out: rarely or never during the past year weight has: remained stable what type of physical activity do you participate in: none and walking frequency: daily duration: 30-45 minutes/day sangeeta/religious: Orthodoxy seatbelt use: always do you feel safe at home: Yes additional social history: : Abdirahman - Toney History 4 Elective abortions Hx Para 2 Spontaneous abortions 1 Hx # Term Pregnancies 2 Ectopic pregnancies Hx # Pregnancies Multiple births # of living children 2 Past Pregnancies Del. Date Name GA/Weeks Outcome Route Bth Weight Infant Gen Labor Lgth Anesthesia Del Locatn Provider FOB 10/27/17 Marta 40 live - full term 8lbs 6oz Female 16.5 hours epidural [facility] Dr. Rhett Gary 12/28/19 6 03/02/21 Fern 39 live - full term 71b 12oz Female epidural [facility] Shannon Gary Delivery Date: 10/27/17 Last Updated by: Nicol Pabon lightly stained meconium; unable to deliver shoulder; 2nd degree episiotomy cut then with maternal pushing effort the posterior shoulder delivered; uterine atony-cytotec $ metheringine in ad dition to pitocin; TAUS performed gentle banjo curettage performed; cervical laceration 5 o'clock Delivery Date: 12/28/19 Last Updated by: Daylin Mcnally RN No intervention needed Delivery Date: 03/02/21 Last Updated by: Luba Vo IOL 39 wk HPI 28 wk ob Details: OSCAR VO is a 24 year old who presents for routine OB visit. OB Visit MARIA T Calculator Estimated Delivery Date Method Current WG Current Estimate 11/11/24 LMP (Certain) 28w 3d Expected Delivery Route/Plan Labor Preferences- CB/BF classes: no labor support person: Abdirahman labor intervention preferences: [] pain management options preferred: epidural if requested cut cord/dad catch: yes : yes PP control planned: discussed discussed possible routes of delivery and associated risks: [] special requests: [] Specific Issue/Plans Covid status: [] Flu vaccine: [] Tdap vaccine: [] Rhogam: na LARC form signed: yes Problem list reviewed and updated with the most current plan of care details and appropriate orders placed. Relevant counseling for the gestational age provided. Continue routine care and follow up unless otherwise noted in visit notes/problem list details Initial Weight: Not Recorded Date -???-???-???-???-??? -???-???-???-???-??? -???-???- EGA Weight BP Urine Prot -???-???-???-???-??? -???-???-???-???-??? -???-???- Glucose FHR FuHt Pres Dilation -???-???-???-???-??? -???-???-???-???-??? -???-???- Effaced St Visit Note 04/17/24 -???-???-???-???-??? -???-???-???-???-??? -???-???- 10w 2d 219 lb 2 oz 113/73 -???-???-???-???-??? -???-???-???-???-??? -???-???- 171 -???-???-???-???-??? -???-???-???-???-??? -???-???- JV- CRL cons istent with LMP. Declines nipt. wants to do new ob labs next visit due to time restraints today. 05/15/24 -???-???-???-???-??? -???-???-???-???-??? -???-???- 14w 2d 218 lb 6 oz 122/80 Negative -???-???-???-???-??? -???-???-???-???-??? -???-???- Negative 154 -???-???-???-???-??? -???-???-???-???-??? -???-???- MH-No VB. Br ief US confirm live IUP. PN labs. 03 (more content not included)... Normal [facility] Absolute lymphocyte countOrd ered By: Liset Nick on 08-07-2024 Lymphocytes Auto (Unsp spec) [#/Vol] 1.47 10*3/uL 0.83-4.51 [facility] Absolute neutrophil countOrd ered By: Liset Nick on 08-07-2024 Neutrophils (Bld) [#/Vol] 8.5 10*3/uL High 2.0-7.7 [facility] Automated lymphocyte count a s percentage of total leukocytesOrdered By: Liset Nick on 08-07-2024 Lymphocytes/100 WBC Auto (Unsp spec) 13.8 % Low 19-41 [facility] Basophil percentageOrdered B y: Liset Nick on 08-07-2024 Basophils/100 WBC (Bld) 0.4 % 0-1 [facility] CBC W/Diff, Automatedon 07-27 Absolute Lymph 1.47 X10 3/uL Normal 0.83-4.51 [facility] Comment on above: Performed By: #### L 100.0100, L501.0250, L509.8002, L3890.6006 ####[facility] [id number] [place], [address] Absolute Neut 8.5 X10 3/uL High 2.0-7.7 [facility] Comment on above: Performed By: #### L 100.0100, L501.0250, L509.8002, L3890.6006 ####[facility] [id number] [place], [address] Basophils/100 WBC (Bld) 0.4 % Normal 0-1 [facility] Comment on above: Performed By: #### L 100.0100, L501.0250, L509.8002, L3890.6006 ####[facility] [address] [place], [address] Eosinophils/100 WBC (Bld) 1.3 % Normal 0-5 [facility] Comment on above: Performed By: #### L 100.0100, L501.0250, L509.8002, L3890.6006 ####[facility] [address] [place], [address] Erythrocyte distribution width (RBC) [Ratio] 13.2 % Normal 11.6-14.6 [facility] Comment on above: Performed By: #### L 100.0100, L501.0250, L509.8002, L3890.6006 ####[facility] [address] [place], [address] Hematocrit (Bld) [Volume fraction] 37.1 % Normal 37-47 [facility] Comment on above: Performed By: #### L 100.0100, L501.0250, L509.8002, L3890.6006 ####[facility] [address] [place], [address] Hemoglobin (Bld) [Mass/Vol] 12.6 g/dL Normal 12.0-15.0 [facility] Comment on above: Performed By: #### L 100.0100, L501.0250, L509.8002, L3890.6006 ####[facility] [address] [place], [address] IG% 0.800 Normal 0.0-0.9 [facility] Comment on above: Result Comment: IG% - Immature Granulocytes (promyelocytes, myelocytes and metamyelocytes) > 1% indicates that a LEFT SHIFT is Present. Performed By: #### L 100.0100, L501.0250, L509.8002, L3890.6006 ####[facility] [address] [place], [address] Lymphocytes/100 WBC (Bld) 13.8 % Low 19-41 [facility] Comment on above: Performed By: #### L 100.0100, L501.0250, L509.8002, L3890.6006 ####[facility] [address] [place], [address] MCH (RBC) [Entitic mass] 29.9 pg Normal 27.0-32.0 [facility] Comment on above: Performed By: #### L 100.0100, L501.0250, L509.8002, L3890.6006 ####[facility] [address] [place], [address] MCHC (RBC) [Mass/Vol] 34.0 g/dL Normal 32-36 [facility] Comment on above: Performed By: #### L 100.0100, L501.0250, L509.8002, L3890.6006 ####[facility] [address] [place], [address] MCV (RBC) [Entitic vol] 88.1 fL Normal 81-99 [facility] Comment on above: Performed By: #### L 100.0100, L501.0250, L509.8002, L3890.6006 ####[facility] [address] [place], [address] Monocytes/100 WBC (Bld) 4.0 % Normal 0-10 [facility] Comment on above: Performed By: #### L 100.0100, L501.0250, L509.8002, L3890.6006 ####[facility] [address] [place], [address] Neutrophils/100 WBC (Bld) 79.7 % High 47-70 [facility] Comment on above: Performed By: #### L 100.0100, L501.0250, L509.8002, L3890.6006 ####[facility] [address] [place], [address] Nucleated RBC (Bld) [#/Vol] 0 10*3/uL Normal 0-5 [facility] Comment on above: Performed By: #### L 100.0100, L501.0250, L509.8002, L3890.6006 ####[facility] [address] [place], [address] Platelet mean volume (Bld) [Entitic vol] 10.0 fL Normal 6.2-12.0 [facility] Comment on above: Performed By: #### L 100.0100, L501.0250, L509.8002, L3890.6006 ####[facility] [address] [place], [address] Platelets (Bld) [#/Vol] 271 10*3/uL Normal 150-450 [facility] Comment on above: Performed By: #### L 100.0100, L501.0250, L509.8002, L3890.6006 ####[facility] [address] [place], [address] RBC (Bld) [#/Vol] 4.21 10*6/uL Normal 4.2-5.4 [facility] Comment on above: Performed By: #### L 100.0100, L501.0250, L509.8002, L3890.6006 ####[facility] [address] [place], [address] RDW SD 42.7 fl Normal 35.1-43.9 [facility] Comment on above: Performed By: #### L 100.0100, L501.0250, L509.8002, L3890.6006 ####[facility] [address] [place], [address] WBC (Bld) [#/Vol] 10.7 10*3/uL Normal 4.4-11.0 [facility] Comment on above: Performed By: #### L 100.0100, L501.0250, L509.8002, L3890.6006 ####[facility] [address] [place], [address] Eosinophil percentageOrdered By: Liset Nick on 08-07-2024 Eosinophils/100 WBC (Bld) 1.3 % 0-5 [facility] Erythrocyte distribution wid th ratioOrdered By: Liset Nick on 08-07-2024 Erythrocyte distribution width (RBC) [Ratio] 13.2 % 11.6-14.6 [facility] Erythrocyte distribution wid th standard deviationOrdered By: Liset Nick on 08-07-2024 Erythrocyte distribution width (RBC) [Ratio] 42.7 fl 35.1-43.9 [facility] Glucose Challenge Gest 1H 50 nasreen 08-07-2024 GLU GEST 50g 1H 120 mg/dL Normal 70-140 [facility] Comment on above: Performed By: #### L 100.0100, L501.0250, L509.8002, L3890.6006 ####[facility] [address] [place], [address] Glucose measurement at 2 ange rs post-dose gestational glucose tolerance testOrdered By: Liset Nick on 08-07-2024 Glucose [Mass/Vol] 120 mg/dL 70-140 [facility] HIVon 08-07-2024 HIV Non-Reactive Normal Nonreactive [facility] Comment on above: Result Comment: Non- Reactive Reactive Repeatedly reactive samples must be confirmed according to CDC recommended confirmatory algorithms. The subresults for either HIVAG or AHIV can be used as an aid in the selection of the confirmation algorithm for reactive samples. Send out specimens with Reactive results to [facility] for confirmation. Order the HIV antibody detection and differentiation: #[id number] Performed By: #### L 100.0100, L501.0250, L509.8002, L3890.6006 ####[facility] [address] [place], [address] Hematocrit Auto (Bld) [Volum e fraction]Ordered By: Liset Nick on 08-07-2024 Hematocrit (Bld) [Volume fraction] 37.1 % 37-47 [facility] Hemoglobin measurementOrdere d By: Liset Nick on 08-07-2024 Hemoglobin (Bld) [Mass/Vol] 12.6 g/dL 12.0-15.0 [facility] Immature granulocytes/100 WB C Auto (Bld)Ordered By: Liset Nick on 08-07-2024 Immature granulocytes/100 WBC (Bld) 0.800 % 0.0-0.9 [facility] Comment on above: IG% - Immature Granu locytes (promyelocytes, myelocytes and metamyelocytes) > 1% indicates that a LEFT SHIFT is Present. Laboratory - Chemistry and C hemistry - challengeOrdered By: Sy Nina on 08-07-2024 Glucose Ql (U) Negative [facility] Laboratory - UrinalysisOrder ed By: Sy Nina on 08-07-2024 Protein Ql (U) Negative [facility] MCV (mean corpuscular volume ) determinationOrdered By: Liset Nick on 08-07-2024 MCV (RBC) [Entitic vol] 88.1 fL 81-99 [facility] Mean corpuscular hemoglobin (MCH) determinationOrdered By: Liset Nick on 08-07-2024 MCH (RBC) [Entitic mass] 29.9 pg 27.0-32.0 [facility] Mean corpuscular hemoglobin concentration (MCHC) determinationOrdered By: Liset Nick on 08-07-2024 MCHC (RBC) [Mass/Vol] 34.0 g/dL 32-36 [facility] Mean platelet volume determi nationOrdered By: Liset Nick on 08-07-2024 Platelet mean volume (Bld) [Entitic vol] 10.0 fL 6.2-12.0 [facility] Monocyte percentageOrdered B y: Liset Nick on 08-07-2024 Monocytes/100 WBC (Bld) 4.0 % 0-10 [facility] Neutrophil percentageOrdered By: Liset Nick on 08-07-2024 Neutrophils/100 WBC (Bld) 79.7 % High 47-70 [facility] No Panel InformationOrdered By: Liset Nick on 08-07-2024 HIV (1&2) Antibody Non-Reactive Nonreactive [facility] Comment on above: Non-ReactiveReactive Repeatedly reactive samples must be confirmed according to CDC recommended confirmatory algorithms. The subresults for either HIVAG or AHIV can be used as an aid in the selection of the confirmation algorithm for reactive samples.Send out specimens with Reactive results to [facility] for confirmation.Order the HIV antibody detection and differentiation: #[id number] Nucleated red blood cell per centageOrdered By: Liset Nick on 08-07-2024 Nucleated RBC/100 WBC (Bld) [Ratio] 0 % 0-5 [facility] Skirt Trimmer Office Visit Reporton 08-07-2024 Skirt Trimmer Office Visit Report [facility] [address], [address] [place] [address] OFFICE VISIT Date of Service: 08/07/24 MR#: [id number] Acct: [id number] Name: OSCAR VO Rep #: [id number] : 2000 Provider: ALICIA pedro Age/Sex: 24/F Location: [facility] [place] Status: Signed Intake Vital Signs 05/15/24 15:49 07/10/24 08:54 08/07/24 09:50 Height 5 ft 4 in 5 ft 4 in 5 ft 4 in Weight: 215 lb 8 oz BMI 37.0 BP 124/74 H Intake Visit Reasons: 26 wk ob/glucose 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: 26 Week OB/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: No Is patient in pain?: No Allergies tree nut Allergy (Verified 08/07/24 09:55) Anaphylaxis Medications ???Medication ???Instructions ???Recorded ???Confirmed ???Type multivitamin 1 tab PO QDAY 06/12/24 08/07/24 Hi story Last Menstrual Period: 02/05/24 Zika: Zika virus screening: Negative : Yes PFSH PFSH Medical History Adopted Vaginal delivery hemorrhage Social History adopted: Yes household members: spouse and children housing: house number of children: 2 current occupational status: employed 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) [employer] current occupational exposures/hazards: No pets and animals: No history of recent travel: No sexually active: Yes Smoking Status: Never smoker second hand exposure: No alcohol intake: never substance use type: does not use well-balanced diet: daily or most days caffeine: No eating out: rarely or never during the past year weight has: remained stable what type of physical activity do you participate in: none and walking frequency: daily duration: 30-45 minutes/day sangeeta/religious: Orthodoxy seatbelt use: always do you feel safe at home: Yes additional social history: : Abdirahman - Toney History 4 Elective abortions Hx Para 2 Spontaneous abortions 1 Hx # Term Pregnancies 2 Ectopic pregnancies Hx # Pregnancies Multiple births # of living children 2 Past Pregnancies Del. Date Name GA/Weeks Outcome Route Bth Weight Gen Labor Lgth Anesthesia Del Locatn Provider FOB 10/27/17 Marta 40 live - full term 8lbs 6oz Female 16.5 hours epidural [facility] Dr. Rhett Gary 12/28/19 6 03/02/21 Fern 39 live - full term 71b 12oz Female epidural [facility] Shannon Gary Delivery Date: 10/27/17 Last Updated by: Nicol Pabon lightly stained meconium; unable to deliver shoulder; 2nd degree episiotomy cut then with maternal pushing effort the posterior shoulder delivered; uterine atony-cytotec $ metheringine in addition to pitocin; TAUS performed gentle banjo curettage performed; cervical laceration 5 o'clock Delivery Date: 12/28/19 Last Updated by: Daylin Mcnally RN No intervention needed Delivery Date: 03/02/21 Last Updated by: Luba Vo IOL 39 wk HPI 26 wk ob/glucose Details: OSCAR VO is a 24 year old who presents for routine OB visit. OB Visit MARIA T Calculator Estimated Delivery Date Method Current WG Current Estimate 11/11/24 LMP (Certain) 26w 2d Expected Delivery Route/Plan Labor Preferences- CB/BF classes: no labor support person: Abdirahman labor intervention preferences: [] pain management options preferred: epidural if requested cut cord/dad catch: yes : yes PP control planned: discussed discussed possible routes of delivery and associated risks: [] special requests: [] Specific Issue/Plans Covid status: [] Flu vaccine: [] Tdap vaccine: [] Rhogam: na LARC form signed: yes Problem list reviewed and updated with the most current plan of care details and appropriate orders placed. Relevant counseling for the gestational age provided. Continue routine care and follow up unless otherwise noted in visit notes/problem list details Initial Weight: Not Recorded Date -???-???-???-???-??? -???-???-???-???-??? -???-???- EGA Weight BP Urine Prot -???-???-???-???-??? -???-???-???-???-??? -???-???- Glucose FHR FuHt Pres Dilation -???-???-???-???-??? -???-???-???-???-??? -???-???- Effaced St Visit Note 04/17/24 -???-???-???-???-??? -???-???-???-???-??? -???-???- 10w 2d 219 lb 2 oz 113/73 -???-???-???-???-??? -???-???-???-???-??? -???-???- 171 -???-???-???-???-??? -???-???-???-???-??? -???-???- JV- CRL cons istent with LMP. Declines nipt. wants to do new ob labs next visit due to time restraints today. 05/15/24 -???-???-???-???-??? -???-???-???-???-??? -???-???- 14w 2d 218 lb 6 oz 122/80 Negative -???-???-???-???-??? -???-???-???-???-??? -???-???- Negative 154 -???-???-???-???-??? -???-???-???-???-??? - (more content not included)... Normal [facility] Platelet countOrdered By: Leatha Nick on 08-07-2024 Platelets (Bld) [#/Vol] 271 10*3/uL 150-450 [facility] RBC Auto (Bld) [#/Vol]Ordere d By: Liset Nick on 08-07-2024 RBC (Bld) [#/Vol] 4.21 10*6/uL 4.2-5.4 [facility] Syphilis Antibodieson 2024 Syphilis Abs Non-Reactive Normal Nonreactive [facility] Comment on above: Performed By: #### L 100.0100, L501.0250, L509.8002, L3890.6006 ####[facility] [address] [place], [place], [address] White blood cell (WBC) count Ordered By: Liset Nick on 08-07-2024 WBC (Bld) [#/Vol] 10.7 10*3/uL 4.4-11.0 [facility] Laboratory - Chemistry and C hemistry - challengeOrdered By: Liset Nick on 07-10-2024 Glucose Ql (U) Negative [facility] Laboratory - UrinalysisOrder ed By: Liset Nick on 07-10-2024 Protein Ql (U) Negative [facility] Skirt Trimmer Office Visit Reporton 07-10-2024 Skirt Trimmer Office Visit Report [facility] [address], [address] [place] [address] OFFICE VISIT Date of Service: 07/10/24 MR#: [id number] Acct: [id number] Name: OSCAR VO Rep #: [id number] : 2000 Provider: Dr. Liset taylor MD Age/Sex: 24/F Location: [facility] [place] Status: Signed Intake Vital Signs 05/15/24 15:49 06/12/24 15:17 07/10/24 08:52 07/10/24 08:54 Height 5 ft 4 in 5 ft 4 in 5 ft 4 in 5 ft 4 in Weight: 211 lb 4 oz BMI 36.2 BP 128/84 H Intake Visit Reasons: 22 wk ob Cargo Tank Mechanic Required: No Is patient in pain?: No Allergies tree nut Allergy (Verified 07/10/24 08:53) Anaphylaxis Medications ???Medication ???Instructions ???Recorded ???Confirmed ???Type multivitamin 1 tab PO QDAY 06/12/24 07/10/24 Hi story Last Menstrual Period: 02/05/24 Zika: Zika virus screening: Negative : No [facility] Medical History (Updated 07/10/24 @ 09:[address] 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[employer]) [employer] current occupational exposures/hazards: No pets and animals: No history of recent travel: No sexually active: Yes Smoking Status: Never smoker second hand exposure: No alcohol intake: never substance use type: does not use well-balanced diet: daily or most days caffeine: No eating out: rarely or never during the past year weight has: remained stable what type of physical activity do you participate in: none and walking frequency: daily duration: 30-45 minutes/day sangeeta/religious: Orthodoxy seatbelt use: always do you feel safe at home: Yes additional social history: : Abdirahman - Toney History 4 Elective abortions Hx Para 2 Spontaneous abortions 1 Hx # Term Pregnancies 2 Ectopic pregnancies Hx # Pregnancies Multiple births # of living children 2 Past Pregnancies Del. Date Name GA/Weeks Outcome Route Bth Weight Gen Labor Lgth Anesthesia Del Locatn Provider FOB 10/27/17 Marta 40 live - full term 8lbs 6oz Female 16.5 hours epidural [facility] Dr. Rhett Gary 12/28/19 6 03/02/21 Fern 39 live - full term 71b 12oz Female epidural [facility] Shannon Bruno Abdirahman Delivery Date: 10/27/17 Last Updated by: Nicol Pabon lightly stained meconium; unable to deliver shoulder; 2nd degree episiotomy cut then with maternal pushing effort the posterior shoulder delivered; uterine atony-cytotec $ metheringine in addition to pitocin; TAUS performed gentle banjo curettage performed; cervical laceration 5 o'clock Delivery Date: 12/28/19 Last Updated by: Daylin Mcnally RN No intervention needed Delivery Date: 03/02/21 Last Updated by: Luba Vo IOL 39 wk HPI 22 wk ob Details: OSCAR VO is a 24 year old who presents for routine OB visit. OB Visit MARIA T Calculator Estimated Delivery Date Method Current WG Current Estimate 11/11/24 LMP (Certain) 22w 2d Expected Delivery Route/Plan Labor Preferences- CB/BF classes: [] labor support person: [] labor intervention preferences: [] pain management options preferred: [] cut cord/dad catch: [] : [] PP control planned: [] discussed possible routes of delivery and associated risks: [] special requests: [] Specific Issue/Plans Covid status: [] Flu vaccine: [] Tdap vaccine: [] Rhogam: [] LARC form signed: [] Problem list reviewed and updated with the most current plan of care details and appropriate orders placed. Relevant counseling for the gestational age provided. Continue routine care and follow up unless otherwise noted in visit notes/problem list details Initial Weight: Not Recorded Date -???-???-???-???-??? -???-???-???-???-??? -???-???- EGA Weight BP Urine Prot -???-???-???-???-??? -???-???-???-???-??? -???-???- Glucose FHR FuHt Pres Dilation -???-???-???-???-??? -???-???-???-???-??? -???-???- Effaced St Visit Note 04/17/24 -???-???-???-???-??? -???-???-???-???-??? -???-???- 10w 2d 219 lb 2 oz 113/73 -???-???-???-???-??? -???-???-???-???-??? -???-???- 171 -???-???-???-???-??? -???-???-???-???-??? -???-???- JV- CRL cons istent with LMP. Declines nipt. wants to do new ob labs next visit due to time restraints today. 05/15/24 -???-???-???-???-??? -???-???-???-???-??? -???-???- 14w 2d 218 lb 6 oz 122/80 Negative -???-???-???-???-??? -???-???-???-???-??? -???-???- Negative 154 -???-???-???-???-??? -???-???-???-???-??? -???-???- -No VB. Br ief US confirm live IU (more content not included)... Normal [facility] Laboratory - Chemistry and C hemistry - challengeOrdered By: Lali Solo on 06-12-2024 Glucose Ql (U) Negative [facility] Laboratory - UrinalysisOrder ed By: Lali Solo on 06-12-2024 Protein Ql (U) Negative [facility] Skirt Trimmer Office Visit Reporton 06-12-2024 Skirt Trimmer Office Visit Report [facility] [address], [address] [place] [address] OFFICE VISIT Date of Service: 06/12/24 MR#: [id number] Acct: [id number] Name: OSCAR VO Rep #: [id number] : 2000 Provider: PARUL Pizano ams Age/Sex: 24/F Location: [facility] [place] Status: Signed Intake Vital Signs 04/17/24 15:09 05/15/24 15:49 06/12/24 15:17 Height 5 ft 4 in 5 ft 4 in 5 ft 4 in Weight: 218 lb 6 oz 214 lb 6 oz BMI 37.5 36.8 BP 122/80 H 110/69 Intake Visit Reasons: 18 wk ob 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: 18wk OB Is patient in pain?: No Allergies tree nut Allergy (Verified 06/12/24 15:18) Anaphylaxis Medications ???Medication ???Instructions ???Recorded ???Confirmed ???Type multivitamin 1 tab PO QDAY 06/12/24 06/12/24 Hi story Last Menstrual Period: 02/05/24 : No PFSH PFS Medical History Adopted Vaginal delivery hemorrhage Social History adopted: Yes household members: spouse and children housing: house number of children: 2 current occupational status: employed 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[employer]) [employer] current occupational exposures/hazards: No pets and animals: No history of recent travel: No sexually active: Yes Smoking Status: Never smoker second hand exposure: No alcohol intake: never substance use type: does not use well-balanced diet: daily or most days caffeine: No eating out: rarely or never during the past year weight has: remained stable what type of physical activity do you participate in: none and walking frequency: daily duration: 30-45 minutes/day sangeeta/religious: Orthodoxy seatbelt use: always do you feel safe at home: Yes additional social history: : Abdirahman - Toney History 4 Elective abortions Hx Para 2 Spontaneous abortions 1 Hx # Term Pregnancies 2 Ectopic pregnancies Hx # Pregnancies Multiple births # of living children 2 Past Pregnancies Del. Date Name GA/Weeks Outcome Route Bth Weight Gen Labor Lgth Anesthesia Del Locatn Provider FOB 10/27/17 Marta 40 live - full term 8lbs 6oz Female 16.5 hours epidural [facility] Dr. Rhett Gary 12/28/19 6 03/02/21 Fern 39 live - full term 71b 12oz Female epidural [facility] Shannon Gary Delivery Date: 10/27/17 Last Updated by: Nicol Pabon lightly stained meconium; unable to deliver shoulder; 2nd degree episiotomy cut then with maternal pushing effort the posterior shoulder delivered; uterine atony-cytotec $ metheringine in addition to pitocin; TAUS performed gentle banjo curettage performed; cervical laceration 5 o'clock Delivery Date: 12/28/19 Last Updated by: Daylin Mcnally RN No intervention needed Delivery Date: 03/02/21 Last Updated by: Luba Vo IOL 39 wk HPI 18 wk ob Details: OSCAR VO is a 24 year old who presents for routine OB visit. OB Visit MARIA T Calculator Estimated Delivery Date Method Current WG Current Estimate 11/11/24 LMP (Certain) 18w 2d Expected Delivery Route/Plan Labor Preferences- CB/BF classes: [] labor support person: [] labor intervention preferences: [] pain management options preferred: [] cut cord/dad catch: [] : [] PP control planned: [] discussed possible routes of delivery and associated risks: [] special requests: [] Specific Issue/Plans Covid status: [] Flu vaccine: [] Tdap vaccine: [] Rhogam: [] LARC form signed: [] Problem list reviewed and updated with the most current plan of care details and appropriate orders placed. Relevant counseling for the gestational age provided. Continue routine care and follow up unless otherwise noted in visit notes/problem list details Initial Weight: Not Recorded Date -???-???-???-???-??? -???-???-???-???-??? -???-???- EGA Weight BP Urine Prot -???-???-???-???-??? -???-???-???-???-??? -???-???- Glucose FHR FuHt Pres Dilation -???-???-???-???-??? -???-???-???-???-??? -???-???- Effaced St Visit Note 04/17/24 -???-???-???-???-??? -???-???-???-???-??? -???-???- 10w 2d 219 lb 2 oz 113/73 -???-???-???-???-??? -???-???-???-???-??? -???-???- 171 -???-???-???-???-??? -???-???-???-???-??? -???-???- JV- CRL cons istent with LMP. Declines nipt. wants to do new ob labs next visit due to time restraints today. 05/15/24 -???-???-???-???-??? -???-???-???-???-??? -???-???- 14w 2d 218 lb 6 oz 122/80 Negative -???-???-???-???-??? -???-???-???-???-??? -???-???- Negative 154 -???-???-???-???-??? -???-???-???-???-??? -???-???- MH-No VB. Br ief US confirm live IUP. PN labs. 06/12/24 -???-???-???-???-??? -???-???-???-???-??? (more content not included)... Normal [facility] HIV - WCHon 05-16-2024 HIV Non-Reactive Normal Nonreactive [facility] Comment on above: Performed By: #### L 100.0100, L509.4005, BTS, L3890.0605, L501.8224 ####[facility] [address] [place], [address] Rubella IgGon 05-16-2024 Rubella IgG Reactive Normal Nonreactive [facility] Comment on above: Result Comment: Anti body Results Interpretation of Immune Status Non Reactive Presumed Non-Immune Equivocal Equivocal Reactive Presumed Immune Performed By: #### L 100.0100, L509.4005, BTS, L3890.6005, L501.9985 ####[facility] [address] [place], [address] Absolute lymphocyte countOrd ered By: Suyapa Damion on 05-15-2024 Lymphocytes Auto (Unsp spec) [#/Vol] 1.56 10*3/uL 0.83-4.51 [facility] Absolute neutrophil countOrd ered By: Suyapa Bruno on 05-15-2024 Neutrophils (Bld) [#/Vol] 4.8 10*3/uL 2.0-7.7 [facility] Automated lymphocyte count a s percentage of total leukocytesOrdered By: Suyapa Bruno on 05-15-2024 Lymphocytes/100 WBC Auto (Unsp spec) 22.7 % 19-41 [facility] Basophil percentageOrdered B y: Suyapa Damion on 05-15-2024 Basophils/100 WBC (Bld) 0.3 % 0-1 [facility] CBC W/Diff, Automatedon 04-29 Absolute Lymph 1.56 X10 3/uL Normal 0.83-4.51 [facility] Comment on above: Performed By: #### L 100.0100, L509.4005, BTS, L3890.6005, L501.9985 ####[facility] [address] [place], [address] Absolute Neut 4.8 X10 3/uL Normal 2.0-7.7 [facility] Comment on above: Performed By: #### L 100.0100, L509.4005, BTS, L3890.6005, L501.9985 ####[facility] [address] [place], [address] Basophils/100 WBC (Bld) 0.3 % Normal 0-1 [facility] Comment on above: Performed By: #### L 100.0100, L509.4005, BTS, L3890.6005, L501.9985 ####[facility] [address] [place], [address] Eosinophils/100 WBC (Bld) 1.5 % Normal 0-5 [facility] Comment on above: Performed By: #### L 100.0100, L509.4005, BTS, L3890.6005, L501.9985 ####[facility] [address] [place], [address] Erythrocyte distribution width (RBC) [Ratio] 12.3 % Normal 11.6-14.6 [facility] Comment on above: Performed By: #### L 100.0100, L509.4005, BTS, L3890.6005, L501.9985 ####[facility] [address] [place], [address] Hematocrit (Bld) [Volume fraction] 37.2 % Normal 37-47 [facility] Comment on above: Performed By: #### L 100.0100, L509.4005, BTS, L3890.6005, L501.9985 ####[facility] [address] [place], [address] Hemoglobin (Bld) [Mass/Vol] 12.9 g/dL Normal 12.0-15.0 [facility] Comment on above: Performed By: #### L 100.0100, L509.4005, BTS, L3890.6005, L501.9985 ####[facility] [address] [place], [address] IG% 0.400 Normal 0.0-0.9 [facility] Comment on above: Result Comment: IG% - Immature Granulocytes (promyelocytes, myelocytes and metamyelocytes) > 1% indicates that a LEFT SHIFT is Present. Performed By: #### L 100.0100, L509.4005, BTS, L3890.6005, L501.9985 ####[facility] [address] [place], [address] Lymphocytes/100 WBC (Bld) 22.7 % Normal 19-41 [facility] Comment on above: Performed By: #### L 100.0100, L509.4005, BTS, L3890.6005, L501.9985 ####[facility] [address] [place], [address] MCH (RBC) [Entitic mass] 29.8 pg Normal 27.0-32.0 [facility] Comment on above: Performed By: #### L 100.0100, L509.4005, BTS, L3890.6005, L501.9985 ####[facility] [address] [place], [address] MCHC (RBC) [Mass/Vol] 34.7 g/dL Normal 32-36 [facility] Comment on above: Performed By: #### L 100.0100, L509.4005, BTS, L3890.6005, L501.9985 ####[facility] [address] [place], [address] MCV (RBC) [Entitic vol] 85.9 fL Normal 81-99 [facility] Comment on above: Performed By: #### L 100.0100, L509.4005, BTS, L3890.6005, L501.9985 ####[facility] [address] [place], [address] Monocytes/100 WBC (Bld) 4.9 % Normal 0-10 [facility] Comment on above: Performed By: #### L 100.0100, L509.4005, BTS, L3890.6005, L501.9985 ####[facility] [address] [place], [address] Neutrophils/100 WBC (Bld) 70.2 % High 47-70 [facility] Comment on above: Performed By: #### L 100.0100, L509.4005, BTS, L3890.6005, L501.9985 ####[facility] [address] [place], [address] Nucleated RBC (Bld) [#/Vol] 0 10*3/uL Normal 0-5 [facility] Comment on above: Performed By: #### L 100.0100, L509.4005, BTS, L3890.6005, L501.9985 ####[facility] [address] [place], [address] Platelet mean volume (Bld) [Entitic vol] 10.4 fL Normal 6.2-12.0 [facility] Comment on above: Performed By: #### L 100.0100, L509.4005, BTS, L3890.6005, L501.9985 ####[facility] [address] [place], [address] Platelets (Bld) [#/Vol] 229 10*3/uL Normal 150-450 [facility] Comment on above: Performed By: #### L 100.0100, L509.4005, BTS, L3890.6005, L501.9985 ####[facility] [address] [place], [address] RBC (Bld) [#/Vol] 4.33 10*6/uL Normal 4.2-5.4 [facility] Comment on above: Performed By: #### L 100.0100, L509.4005, BTS, L3890.6005, L501.9985 ####[facility] [address] [place], [address] RDW SD 38.6 fl Normal 35.1-43.9 [facility] Comment on above: Performed By: #### L 100.0100, L509.4005, BTS, L3890.6005, L501.9985 ####[facility] [address] [place], [address] WBC (Bld) [#/Vol] 6.9 10*3/uL Normal 4.4-11.0 [facility] Comment on above: Performed By: #### L 100.0100, L509.4005, BTS, L3890.6005, L501.9985 ####[facility] [address] [facility] [place], [address] Eosinophil percentageOrdered By: Suyapa Bruno on 05-15-2024 Eosinophils/100 WBC (Bld) 1.5 % 0-5 [facility] Erythrocyte distribution wid th ratioOrdered By: Suyapa Bruno on 05-15-2024 Erythrocyte distribution width (RBC) [Ratio] 12.3 % 11.6-14.6 [facility] Erythrocyte distribution wid th standard deviationOrdered By: Suyapa Bruno on 05-15-2024 Erythrocyte distribution width (RBC) [Ratio] 38.6 fl 35.1-43.9 [facility] HIV 1 and HIV-2 antibody ass ay with HIV-1 p24 antigen detectionOrdered By: Suyapa Bruno on 05-15-2024 HIV 1+2 Ab+HIV1 p24 Ag IA Ql Non-Reactive Nonreactive [facility] Hematocrit Auto (Bld) [Volum e fraction]Ordered By: Suyapa Bruno on 05-15-2024 Hematocrit (Bld) [Volume fraction] 37.2 % 37-47 [facility] Hemoglobin A1con 05-15-2024 HbA1c (Bld) [Mass fraction] 5.0 % Normal 3.8-5.6 [facility] Comment on above: Result Comment: Norm al < 5.7 % Prediabetic 5.7 - 6.4 % Diabetic >or= 6.5 % Please note range changes. Performed By: #### L 100.0100, L509.4005, BTS, L3890.6005, L501.9985 ####[facility] [address] [place], [address] Hemoglobin A1c percentageOrd ered By: Suyapa Bruno on 05-15-2024 HbA1c (Bld) [Mass fraction] 5.0 % 3.8-5.6 [facility] Comment on above: Normal < 5.7 % Predi abetic 5.7 - 6.4 % Diabetic >or= 6.5 % Please note range changes. Hemoglobin measurementOrdere d By: Suyapa Bruno on 05-15-2024 Hemoglobin (Bld) [Mass/Vol] 12.9 g/dL 12.0-15.0 [facility] Hepatitis B Surface Antigeno n 05-15-2024 HEP B Surf Ag Non-Reactive Normal Nonreactive [facility] Comment on above: Order Comment: Reaso n for Exam: Performed By: #### L 3890.6100 #### [facility] [address] [facility] [place], [address] Hepatitis C Antibodyon 05-15 Hepatitis C AB Non-Reactive Normal Nonreactive [facility] Comment on above: Order Comment: Reaso n for Exam: Result Comment: Non Reactive: < 0.8 Equivocal: >/= 0.8 to < 1.0 Reactive: >/= 1.0 The CDC requires that a reactive/equivocal HCV antibody result be sent out for confirmation. HCV Quant by PCR testing. Performed By: #### L 3890.6300 #### [facility] [address] [place], [address] Immature granulocytes/100 WB C Auto (Bld)Ordered By: Suyapa Bruno on 05-15-2024 Immature granulocytes/100 WBC (Bld) 0.400 % 0.0-0.9 [facility] Comment on above: IG% - Immature Granu locytes (promyelocytes, myelocytes and metamyelocytes) > 1% indicates that a LEFT SHIFT is Present. L509.8000on 05-15-2024 Syphilis Abs Non-Reactive Normal [facility] Comment on above: Performed By: #### L 509.8000 ####[facility] [address] [place], [address] Laboratory - Chemistry and C hemistry - challengeOrdered By: Sy Nina on 05-15-2024 Glucose Ql (U) Negative [facility] - UrinalysisOrder ed By: Sy Nina on 05-15-2024 Protein Ql (U) Negative [facility] MCV (mean corpuscular volume ) determinationOrdered By: Suyapa Bruno on 05-15-2024 MCV (RBC) [Entitic vol] 85.9 fL 81-99 [facility] Mean corpuscular hemoglobin (MCH) determinationOrdered By: Suyapa Bruno on 05-15-2024 MCH (RBC) [Entitic mass] 29.8 pg 27.0-32.0 [facility] Mean corpuscular hemoglobin concentration (MCHC) determinationOrdered By: Suyapa Bruno on 05-15-2024 MCHC (RBC) [Mass/Vol] 34.7 g/dL 32-36 [facility] Mean platelet volume determi nationOrdered By: Suyapa Bruno on 05-15-2024 Platelet mean volume (Bld) [Entitic vol] 10.4 fL 6.2-12.0 [facility] Monocyte percentageOrdered B y: Suyapa Bruno on 05-15-2024 Monocytes/100 WBC (Bld) 4.9 % 0-10 [facility] Neutrophil percentageOrdered By: Suyapa Bruno on 05-15-2024 Neutrophils/100 WBC (Bld) 70.2 % High 47-70 [facility] Nucleated red blood cell per centageOrdered By: Suyapa Bruno on 05-15-2024 Nucleated RBC/100 WBC (Bld) [Ratio] 0 % 0-5 [facility] Skirt Trimmer Office Visit Reporton 05-15-2024 Skirt Trimmer Office Visit Report [facility], [address] [place] [address] OFFICE VISIT Date of Service: 05/15/24 MR#: [id number] Acct: [id number] Name: OSCAR VO Rep #: [id number] : 2000 Provider: ALICIA pedro Age/Sex: 24/F Location[place] [facility] [place] Status: Signed Intake Vital Signs 04/14/22 15:51 04/17/24 15:09 05/15/24 15:49 Height 5 ft 4 in 5 ft 4 in 5 ft 4 in Weight: 218 lb 6 oz BMI 37.5 BP 122/80 H Intake Visit Reasons: 14wk OB 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: 14 Week 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 Required: No Is patient in pain?: No Allergies tree nut Allergy (Verified 05/15/24 15:50) Anaphylaxis Medications ???Medication ???Instructions ???Recorded ???Confirmed ???Type NK 04/11/24 05/15/24 History Last Menstrual Period: 02/05/24 Zika: Zika virus screening: Negative : No PFSH PFSH Medical History Adopted Vaginal delivery hemorrhage Social History adopted: Yes household members: spouse and children housing: house number of children: 2 current occupational status: employed 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) [place] current occupational exposures/hazards: No pets and animals: No history of recent travel: No sexually active: Yes Smoking Status: Never smoker second hand exposure: No alcohol intake: never substance use type: does not use well-balanced diet: daily or most days caffeine: No eating out: rarely or never during the past year weight has: remained stable what type of physical activity do you participate in: none and walking frequency: daily duration: 30-45 minutes/day sangeeta/religious: Orthodoxy seatbelt use: always do you feel safe at home: Yes additional social history: : Abdirahman - [employer]oney History 4 Elective abortions Hx Para 2 Spontaneous abortions 1 Hx # Term Pregnancies 2 Ectopic pregnancies Hx # Pregnancies Multiple births # of living children 2 Past Pregnancies Del. Date Name GA/Weeks Outcome Route Bth Weight Infant Gen Labor Lgth Anesthesia Del Locatn Provider FOB 10/27/17 Marta 40 live - full term 8lbs 6oz Female 16.5 hours epidural [facility] Dr. Rhett Gary 12/28/19 6 03/02/21 Fern 39 live - full term 71b 12oz Female epidural [facility] Shannon Gary Delivery Date: 10/27/17 Last Updated by: Nicol Pabon lightly stained meconium; unable to deliver shoulder; 2nd degree episiotomy cut then with maternal pushing effort the posterior shoulder delivered; uterine atony-cytotec $ metheringine in addition to pitocin; TAUS performed gentle banjo curettage performed; cervical laceration 5 o'clock Delivery Date: 12/28/19 Last Updated by: Daylin Mcnally RN No intervention needed Delivery Date: 03/02/21 Last Updated by: Lbua Vo IOL 39 wk HPI 14wk OB Details: OSCAR VO is a 24 year old who presents for routine OB visit. OB Visit MARIA T Calculator Estimated Delivery Date Method Current WG Current Estimate 11/11/24 LMP (Certain) 14w 2d Expected Delivery Route/Plan Labor Preferences- CB/BF classes: [] labor support person: [] labor intervention preferences: [] pain management options preferred: [] cut cord/dad catch: [] : [] PP control planned: [] discussed possible routes of delivery and associated risks: [] special requests: [] Specific Issue/Plans Covid status: [] Flu vaccine: [] Tdap vaccine: [] Rhogam: [] LARC form signed: [] Problem list reviewed and updated with the most current plan of care details and appropriate orders placed. Relevant counseling for the gestational age provided. Continue routine care and follow up unless otherwise noted in visit notes/problem list details Initial Weight: Not Recorded Date -???-???-???-???-??? -???-???-???-???-??? -???-???- EGA Weight BP Urine Prot -???-???-???-???-??? -???-???-???-???-??? -???-???- Glucose FHR FuHt Pres Dilation -???-???-???-???-??? -???-???-???-???-??? -???-???- Effaced St Visit Note 04/17/24 -???-???-???-???-??? -???-???-???-???-??? -???-???- 10w 2d 219 lb 2 oz 113/73 -???-???-???-???-??? -???-???-???-???-??? -???-???- 171 -???-???-???-???-??? -???-???-???-???-??? -???-???- JV- CRL cons istent with LMP. Declines nipt. wants to do new ob labs next visit due to time restraints today. 05/15/24 -???-???-???-???-??? -???-???-???-???-??? -???-???- 14w 2d 218 lb 6 oz 122/80 Negative -???-???-???-???-??? -???-???-???-???-??? -???-???- Negative 154 -???-???-???-???-??? -???-???-???-???-??? -???-???- MH-No VB. Br ief US confirm live IUP. PN labs. ACOG First Trime (more content not included)... Normal [facility] Platelet countOrdered By: Yann Bruno on 05-15-2024 Platelets (Bld) [#/Vol] 229 10*3/uL 150-450 [facility] RBC Auto (d) [#/Vol]Ordere d By: Suyapa Bruno on 05-15-2024 RBC (Bld) [#/Vol] 4.33 10*6/uL 4.2-5.4 [facility] Serum Treponema species anti body detectionOrdered By: Suyapa Bruno on 05-15-2024 Treponema sp Ab Ql (S) Non-Reactive [facility] Type AND Screenon 05-15-2024 Ab SCREEN GEL Negative Normal [facility] Comment on above: Order Comment: PN Performed By: #### L 100.0100, L509.4005, BTS, L3890.6005, L501.9985 ####[facility] [address] [place], [address] ABO and Rh group Nom (Bld) Blood group O Rh(D) positive Normal [facility] Comment on above: Order Comment: PN Performed By: #### L 100.0100, L509.4005, BTS, L3890.6005, L501.9985 ####[facility] [address] [place], [address] White blood cell (WBC) count Ordered By: Suyapa Bruno on 05-15-2024 WBC (Bld) [#/Vol] 6.9 10*3/uL 4.4-11.0 [facility] PAP I-G w/rfx hrHPV-Aptimaon 04-21-2024 ADEQ Comment Normal . [facility] Comment on above: Order Comment: Speci men Comment: [id number] Specimen Comment: Source.............Cervix Specimen Comment: Other.............. Specimen Comment: No. of containers..01 ThinPrep Vial Result Comment: Sati sfactory for evaluation. Endocervical and/or squamous metaplastic cells (endocervical component) are present. Performed By: #### M 100.2200, L7400.0353, L7000.1800 #### [facility] [address] [place], [place], [address] COMM . Normal . [facility] Comment on above: Order Comment: Speci men Comment: [id number] Specimen Comment: Source.............Cervix Specimen Comment: Other.............. Specimen Comment: No. of containers..01 ThinPrep Vial Performed By: #### M 100.2200, L7400.0353, L7000.1800 #### [facility] [address] [place], [address] COMMENT Comment Normal . [facility] Comment on above: Order Comment: Speci men Comment: [id number] Specimen Comment: Source.............Cervix Specimen Comment: Other.............. Specimen Comment: No. of containers..01 ThinPrep Vial Result Comment: This liquid based ThinPrep(R) pap test was screened with the use of an image guided system. Performed By: #### M 100.2200, L7400.0353, L7000.1800 #### [facility] [address] [place], [address] DIAG Comment Normal . [facility] Comment on above: Order Comment: Speci men Comment: [id number] Specimen Comment: Source.............Cervix Specimen Comment: Other.............. Specimen Comment: No. of containers..01 ThinPrep Vial Result Comment: NEGA TIVE FOR INTRAEPITHELIAL LESION OR MALIGNANCY. Performed By: #### M 100.2200, L7400.0353, L7000.1800 #### [facility] [address] [place], [place], [address] HPV RFLX Comment Normal . [facility] Comment on above: Order Comment: Speci men Comment: [id number] Specimen Comment: Source.............Cervix Specimen Comment: Other.............. Specimen Comment: No. of containers..01 ThinPrep Vial Result Comment: The HPV DNA reflex criteria were not met with this specimen result therefore, no HPV testing was performed. Performed at: [address] [id number] Performance Management Consultant: Brittani Beckman MD, Phone: [phone] Performed By: #### M 100.2200, L7400.0353, L7000.1800 #### [facility] [address] [place], [place], [id number] PAPSMR Comment Normal . [facility] Comment on above: Order Comment: Speci men Comment: [id number] Specimen Comment: Source.............Cervix Specimen Comment: Other.............. Specimen Comment: No. of containers..01 ThinPrep Vial Result Comment: The Pap smear is a screening test designed to aid in the detection of premalignant and malignant conditions of the uterine cervix. It is not a diagnostic procedure and should not be used as the sole means of detecting cervical cancer. Both false-positive and false-negative reports do occur. Performed By: #### M 100.2200, L7400.0353, L7000.1800 #### [facility] [address] [place], [place], [address] PERFORM Comment Normal . [facility] Comment on above: Order Comment: Speci men Comment: [id number] Specimen Comment: Source.............Cervix Specimen Comment: Other.............. Specimen Comment: No. of containers..01 ThinPrep Vial Result Comment: Lb Elias, Cafeteria Operator (ASCP) Performed By: #### M 100.2200, L7400.0353, L7000.1800 #### [facility] [address] [place], [address] Urine Cultureon 04-20-2024 URC Below infection level. Mixed Gram Pos Gram Neg Org [place] Count <1000 MIXC Mixed contaminants. Submit a new specimen if indicated. Normal [facility] Comment on above: Performed By: #### M 100.2200, L7400.0353, L7000.1800 #### [facility] [address] [place], [address] Chlamydia/GC KENNEDY aptimaon CHLAMY,NUC ACID Negative Normal Negative [facility] Comment on above: Performed By: #### M 100.2200, L7400.0353, L7000.1800 #### [facility] [address] [place], [address] GC BY NUC ACID Negative Normal Negative [facility] Comment on above: Result Comment: Perf ormed at: =G - [facility] [address] [id number] Performance Management Consultant: Brittani Beckman MD, Phone: [phone] Performed By: #### M 100.2200, L7400.0353, L7000.1800 #### [facility] [address] [place], [address] Cervical or vagninal specime n microscopic examination by cytology stain (reported asOrdered By: Suyapa Bruno on 04-17-2024 Cytology report Cyto stain Doc (Cvx/Vag) Comment . [facility] Comment on above: The Pap smear is a s creening test designed to aid in thedetection of premalignant and malignant conditions of theuterine cervix. It is not a diagnostic procedure andshould not be used as the sole means of detecting cervicalcancer. Both false-positive and false-negative reports dooccur. Chlamydia trachomatis rRNA d etection by probe and target amplification methodOrdered By: Suyapa Bruno on 04-17-2024 C. trachomatis rRNA KENNEDY+probe Ql (Unsp spec) Negative Negative [facility] - CytologyOrdered By: Suyapa Bruno on 04-17-2024 Precision Agriculture Specialist Cyto stain Nom (Cvx/Vag) [ID] Comment . [facility] Comment on above: Denisa Kennedy otechnologist (ASCP) Laboratory - Miscellaneous t estsOrdered By: Suyapa Bruno on 04-17-2024 Service comment (Unsp spec) [Interp] . . [facility] Neisseria gonorrhoeae nuclei c acid detection by amplified probe techniqueOrdered By: Suyapa Bruno on 04-17-2024 N. gonorrhoeae DNA KENNEDY+probe Ql (Unsp spec) Negative Negative [facility] Comment on above: Performed at: =[address] [id number] Director: Brittani Beckman MD, Phone: [phone] No Panel InformationOrdered By: Suyapa Bruno on 04-17-2024 Pap Smear Specimen Adequacy Comment . [facility] Comment on above: Satisfactory for jorge luis luation. Endocervical and/or squamous metaplasticcells (endocervical component) are present. Skirt Trimmer Office Visit Reporton 04-17-2024 Skirt Trimmer Office Visit Report [facility] [address], [address] [place] [address] OFFICE VISIT Date of Service: 04/17/24 MR#: [id number] Acct: [id number] Name: OSCAR VO Rep #: [id number] : 2000 Provider: Dr. Suyapa Mars DO Age/Sex: 24/F Location: [facility] [place] Status: Signed Intake Vital Signs 04/14/22 15:51 04/17/24 15:08 04/17/24 15:09 Height 5 ft 4 in 5 ft 4 in 5 ft 4 in Weight: 219 lb 2 oz BMI 37.5 BP 113/73 Intake Visit Reasons: New OB, LMP 02/04, MARIA T 11/11/24 Cargo Tank Mechanic Required: No Is patient in pain?: No Allergies tree nut Allergy (Verified 04/17/24 15:08) Anaphylaxis Medications ???Medication ???Instructions ???Recorded ???Confirmed ???Type NK 04/11/24 04/17/24 History Last Menstrual Period: 02/05/24 Zika: Zika virus screening: Negative : No PFSH PFSH Medical History Adopted Vaginal delivery hemorrhage Social History adopted: Yes household members: spouse and children housing: house number of children: 2 current occupational status: employed 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[employer]) [employer] current occupational exposures/hazards: No pets and animals: No history of recent travel: No sexually active: Yes Smoking Status: Never smoker second hand exposure: No alcohol intake: never substance use type: does not use well-balanced diet: daily or most days caffeine: No eating out: rarely or never during the past year weight has: remained stable what type of physical activity do you participate in: none and walking frequency: daily duration: 30-45 minutes/day sangeeta/religious: Orthodoxy seatbelt use: always do you feel safe at home: Yes additional social history: : Abdirahman - [employer] History 4 Elective abortions Hx Para 2 Spontaneous abortions 1 Hx # Term Pregnancies 2 Ectopic pregnancies Hx # Pregnancies Multiple births # of living children 2 Past Pregnancies Del. Date Name GA/Weeks Outcome Route Bth Weight Infant Gen Labor Lgth Anesthesia Del Locatn Provider FOB 10/27/17 Marta 40 live - full term 8lbs 6oz Female 16.5 hours epidural [facility] Dr. Rhett Gary 12/28/19 6 03/02/21 Fern 39 live - full term 71b 12oz Female epidural [facility] Shannon ElliotFontenot Delivery Date: 10/27/17 Last Updated by: Nicol Pabon lightly stained meconium; unable to deliver shoulder; 2nd degree episiotomy cut then with maternal pushing effort the posterior shoulder delivered; uterine atony-cytotec $ metheringine in a ddition to pitocin; TAUS performed gentle banjo curettage performed; cervical laceration 5 o'clock Delivery Date: 12/28/19 Last Updated by: Daylin Mcnally, RN No intervention needed Delivery Date: 03/02/21 Last Updated by: Luba Vo IOL 39 wk HPI New OB, LMP 02/04, MARIA T 11/11/24 Details: OSCAR VO is a 24 year old who presents for New OB visit. OB Visit MARIA T Calculator Estimated Delivery Date Method Current WG Current Estimate 11/11/24 LMP (Certain) 10w 2d Estimated Due Date: 11/11/25 Expected Delivery Route/Plan Labor Preferences- CB/BF classes: [] labor support person: [] labor intervention preferences: [] pain management options preferred: [] cut cord/dad catch: [] : [] PP control planned: [] discussed possible routes of delivery and associated risks: [] special requests: [] Specific Issue/Plans Covid status: [] Flu vaccine: [] Tdap vaccine: [] Rhogam: [] LARC form signed: [] Problem list reviewed and updated with the most current plan of care details and appropriate orders placed. Relevant counseling for the gestational age provided. Continue routine care and follow up unless otherwise noted in visit notes/problem list details Initial Weight: Not Recorded Date -???-???-???-???-??? -???-???-???-???-??? -???-???- EGA Weight BP Urine Prot -???-???-???-???-??? -???-???-???-???-??? -???-???- Glucose FHR FuHt Pres Dilation -???-???-???-???-??? -???-???-???-???-??? -???-???- Effaced St Visit Note 04/17/24 -???-???-???-???-??? -???-???-???-???-??? -???-???- 10w 2d 219 lb 2 oz 113/73 -???-???-???-???-??? -???-???-???-???-??? -???-???- 171 -???-???-???-???-??? -???-???-???-???-??? -???-???- JV- CRL cons istent with LMP. Declines nipt. wants to do new ob labs next visit due to time restraints today. Menstrual History Last Menstrual Period: 02/05/24 Reported LMP: definite Normal amount/duration: Yes Frequency in days: 26 On hormonal BC at conception: No hCG+: 03/04/24 Antepartum Record Genetic Screening: Congenital Heart Defect: (more content not included)... Normal [facility] Urine cultureOrdered By: Nadia Bruno on 04-17-2024 Bacteria identified Cx Nom (U) Mixed Gram Pos & Gram Neg Org Abnormal [facility] CNOVon 09-12-2019 CNOV Office Visit (OBGYWM) OSCAR VO ([id number]) 2000 F Date Time Provider Department 09/12/19 10:10 AM RHETT GALINDO During your visit today, we recorded the following information about you: Blood pressure Weight 118/72 91.6 kg Rhett Galindo MD 09/12/2019 11:01 AM Signed Oscar Vo is a 19 year old female who presents for Nexplanon removal for abnormal bleeding and weight gain. UNIVERSAL PROTOCOL / SAFETY CHECKLIST Procedure to be performed: Nexplanon Removal Sign in Communication: Completed Time Out: Team Confirms the Correct Patient, Correct Procedure, Correct Site and Site Marking, Correct Position (if applicable), Prep and Dry Time (if applicable). Time: 10:25 Affirmation of Time Out: YES Sign Out Discussion: Completed TECHNIQUE: Patient placed in supine position with left arm bent at the elbow and placed over the head. Skin cleansed with betadine. 1.5mL of 1% lidocaine with epi injected subQ along insertion site. Scalpel used to made a 5mm stab incision superficially at distal end of Nexplanon. Device removed under sterile technique with a small hemostat. Sterile pressure dressing applied. AANDP: 19 year old female here for implanon removal Nexplanon removed intact without difficulty. The patient was instructed to remove the dressing after 24 hours. Contraceptive plans ocps - discussed R/B/A nad use Rhett Galindo MD Referring Provider: SELF [200] Allergies As of Date: 09/12/2019 Noted Allergy Reaction TREE NUT 11/17/2012 4 - Hives Comments: urticaria and lip swelling Date Reviewed: 09/12/2019 Reviewed by: Rhett Galindo - Fully Assessed Reason for Visit: Discussion [813] Primary Visit Diagnosis:Irregular menstrual cycle [N92.6] Other Visit Diagnosis:Unintended weight gain [R63.5] Order(s):HCG QUAL UR B/O [[id number]] Order #: [id number] NEXPLANON REMOVAL [[id number]] Order #: [id number] norgestimate 0.25 mg-ethinyl estradiol 35 mcg (SPRINTEC) 0.25-35 mg-mcg per tabletTake 1 tablet by mouth once daily.Disp: 1 PackageRfl: 14 Prescriptions as of 09/12/2019 Sig: EPINEPHRINE 0.3 MG/0.3 ML INJ* Inject 0.3 mL intramuscularly* NORGESTIMATE 0.25 MG-ETHINYL * Take 1 tablet by mouth once d* IRON ORAL Take by mouth. ORAL Take by mouth. Problem List As Of Date 09/12/2019 Noted Resolved Nocturnal enuresis [N39.44] 06/18/2006 03/26/2017 Supervision of normal first teen in s*03/26/2017 12/09/2017 Unplanned [Z34.90] 03/26/2017 12/09/2017 More... Rubella non-immune status, antepartum [O99.89, *03/30/2017 More... Iron deficiency anemia during [O99.01*08/02/2017 12/09/2017 More... Prescriptions ordered this encounter Disp Refills Start End NORGESTIMATE 0.25 MG-ETHINYL ESTRADI* 1 Pa* 14 09/12/2019 Route: ORAL Sig: Take 1 tablet by mouth once daily. Medications Discontinued During This Encounter etonogestrel (NEXPLANON) 68 mg impl * 09/12/2019 Class: Historical Med Route: SUBDERMAL Si mg by SUBDERMAL route. Disc: Reason for discontinue is not on file. Encounter Status:Closed by RHETT GALINDO MD on 09/12/19 [facility] PROGRESSon 09-12-2019 PROGRESS HNO ID: [id number] Author: Rhett Galindo Service: ? Author Type: Physician Type: Progress Notes Filed: 09/12/2019 11:01 AM Note Text: Oscar Vo is a 19 year old female who presents for Nexplanon removal for abnormal bleeding and weight gain. UNIVERSAL PROTOCOL / SAFETY CHECKLIST Procedure to be performed: Nexplanon Removal Sign in Communication: Completed Time Out: Team Confirms the Correct Patient, Correct Procedure, Correct Site and Site Marking, Correct Position (if applicable), Prep and Dry Time (if applicable). Time: 10:25 Affirmation of Time Out: YES Sign Out Discussion: Completed TECHNIQUE: Patient placed in supine position with left arm bent at the elbow and placed over the head. Skin cleansed with betadine. 1.5mL of 1% lidocaine with epi injected subQ along insertion site. Scalpel used to made a 5mm stab incision superficially at distal end of Nexplanon. Device removed under sterile technique with a small hemostat. Sterile pressure dressing applied. AANDP: 19 year old female here for implanon removal Nexplanon removed intact without difficulty. The patient was instructed to remove the dressing after 24 hours. Contraceptive plans ocps - discussed R/B/A nad use Rhett Galindo MD [facility] Vital Signs Date Time Vital Sign Value Performing Clinician Razai eddie 10-31-2024 10:00-0400 Body height 162.56 cm No Primary Care Physician [facility] 10-31-2024 09:59-0400 Body mass index (BMI) [Ratio] 39.6 kg/m2 No Primary Care Physician [facility] 10-31-2024 09:59-0400 Body weight 104.77 kg No Primary Care Physician [facility] 10-31-2024 09:59-0400 Diastolic blood pressure 76 mm[Hg] No Primary Care Physician [facility] 10-31-2024 09:59-0400 Systolic blood pressure 108 mm[Hg] No Primary Care Physician [facility] 10-23-2024 09:59-0400 Body height 162.56 cm No Primary Care Physician [facility] 10-23-2024 09:59-0400 Body mass index (BMI) [Ratio] 39.3 kg/m2 No Primary Care Physician [facility] 10-23-2024 09:59-0400 Body weight 104.04 kg No Primary Care Physician [facility] 10-23-2024 09:59-0400 Diastolic blood pressure 82 mm[Hg] No Primary Care Physician [facility] 10-23-2024 09:59-0400 Systolic blood pressure 127 mm[Hg] No Primary Care Physician [facility] 10-02-2024 10:00-0400 Body height 162.56 cm No Primary Care Physician [facility] 10-02-2024 10:00-0400 Body mass index (BMI) [Ratio] 38.6 kg/m2 No Primary Care Physician [facility] 10-02-2024 10:00-0400 Body weight 102.05 kg No Primary Care Physician [facility] 10-02-2024 10:00-0400 Diastolic blood pressure 76 mm[Hg] No Primary Care Physician [facility] 10-02-2024 10:00-0400 Systolic blood pressure 115 mm[Hg] No Primary Care Physician [facility] 09-18-2024 09:51-0400 Body height 162.56 cm No Primary Care Physician [facility] 09-18-2024 09:51-0400 Body mass index (BMI) [Ratio] 38.2 kg/m2 No Primary Care Physician [facility] 09-18-2024 09:51-0400 Body weight 101.2 kg No Primary Care Physician [facility] 09-18-2024 09:51-0400 Diastolic blood pressure 79 mm[Hg] No Primary Care Physician [facility] 09-18-2024 09:51-0400 Systolic blood pressure 117 mm[Hg] No Primary Care Physician [facility] 09-04-2024 10:04-0400 Body height 162.56 cm No Primary Care Physician [facility] 09-04-2024 10:04-0400 Body mass index (BMI) [Ratio] 37.6 kg/m2 No Primary Care Physician [facility] 09-04-2024 10:04-0400 Body weight 99.5 kg No Primary Care Physician [facility] 09-04-2024 10:04-0400 Diastolic blood pressure 71 mm[Hg] No Primary Care Physician [facility] 09-04-2024 10:04-0400 Systolic blood pressure 107 mm[Hg] No Primary Care Physician [facility] 08-22-2024 10:56-0400 Body height 162.56 cm No Primary Care Physician [facility] 08-22-2024 10:56-0400 Body mass index (BMI) [Ratio] 37.2 kg/m2 No Primary Care Physician [facility] 08-22-2024 10:56-0400 Body weight 98.42 kg No Primary Care Physician [facility] 08-22-2024 10:56-0400 Diastolic blood pressure 82 mm[Hg] No Primary Care Physician [facility] 08-22-2024 10:56-0400 Systolic blood pressure 120 mm[Hg] No Primary Care Physician [facility] 08-07-2024 09:50-0400 Body height 162.56 cm No Primary Care Physician [facility] 08-07-2024 09:50-0400 Body mass index (BMI) [Ratio] 37 kg/m2 No Primary Care Physician [facility] 08-07-2024 09:50-0400 Body weight 97.74 kg No Primary Care Physician [facility] 08-07-2024 09:50-0400 Diastolic blood pressure 74 mm[Hg] No Primary Care Physician [facility] 08-07-2024 09:50-0400 Systolic blood pressure 124 mm[Hg] No Primary Care Physician [facility] 07-10-2024 08:52-0400 Body mass index (BMI) [Ratio] 36.2 kg/m2 No Primary Care Physician [facility] 07-10-2024 08:52-0400 Body weight 95.82 kg No Primary Care Physician [facility] 07-10-2024 08:52-0400 Diastolic blood pressure 84 mm[Hg] No Primary Care Physician [facility] 07-10-2024 08:52-0400 Systolic blood pressure 128 mm[Hg] No Primary Care Physician [facility] 06-12-2024 15:17-0400 Body mass index (BMI) [Ratio] 36.8 kg/m2 No Primary Care Physician [facility] 06-12-2024 15:17-0400 Body weight 97.23 kg No Primary Care Physician [facility] 06-12-2024 15:17-0400 Diastolic blood pressure 69 mm[Hg] No Primary Care Physician [facility] 06-12-2024 15:17-0400 Systolic blood pressure 110 mm[Hg] No Primary Care Physician [facility] 05-15-2024 15:49-0500 Body mass index (BMI) [Ratio] 37.5 kg/m2 No Primary Care Physician [facility] 05-15-2024 15:49-0500 Body weight 99.05 kg No Primary Care Physician [facility] 05-15-2024 15:49-0500 Diastolic blood pressure 80 mm[Hg] No Primary Care Physician [facility] 05-15-2024 15:49-0500 Systolic blood pressure 122 mm[Hg] No Primary Care Physician [facility] 04-17-2024 15:08-0500 Body mass index (BMI) [Ratio] 37.5 kg/m2 No Primary Care Physician [facility] 04-17-2024 15:08-0500 Body weight 99.39 kg No Primary Care Physician [facility] 04-17-2024 15:08-0500 Diastolic blood pressure 73 mm[Hg] No Primary Care Physician [facility] 04-17-2024 15:08-0500 Systolic blood pressure 113 mm[Hg] No Primary Care Physician [facility] Encounters Encounter Date Encounter Type Care Provider Facility Start: 11-06-2024 ambulatory No Primary Car e Physician Facility:[facility] Start: 11-06-2024 ambulatory Liset Delgado lity:[facility] Start: 10-31-2024 End: 10-31-[address] Suyapa Fabian DO -[facility] Work Phone: Start: 10-31-2024 End: 10-31-2024 ambulatory No Primary Care Physician -[facility] Start: 10-23-2024 End: 10-23-2024 ambulatory No Primary Care Physician -Laboratory Specimen Start: 10-23-2024 End: 10-23-2024 Patient encounter procedure Lali Solo CNM -Laboratory Specimen Work Phone: Start: 10-23-2024 End: 10-23-2024 Patient encounter procedure Lali Solo CN -[facility] Work Phone: Start: 10-23-2024 End: 10-23-2024 ambulatory No Primary Care Physician -[facility] Start: 10-23-2024 End: 10-23-2024 ambulatory No Primary Care Physician Facility:[facility] Start: 10-12-2024 End: 10-12-2024 ambulatory No Primary Care Physician -Ultrasound [facility] Start: 10-12-2024 End: 10-12-2024 Patient encounter procedure Lali Solo CNM -Ultrasound [facility] Work Phone: Start: 10-12-2024 End: 10-12-2024 ambulatory No Primary Care Physician Facility:[facility] Start: 10-02-2024 End: 10-02-2024 Patient encounter procedure Lali SHAH -[facility] Work Phone: Start: 10-02-2024 End: 10-02-2024 ambulatory No Primary Care Physician -[facility] Start: 09-18-2024 End: 09-18-[address] Liset Nick MD -[facility] Work Phone: Start: 09-18-2024 End: 09-18-2024 ambulatory No Primary Care Physician [facility] Work Phone: Start: 09-04-2024 End: 09-04-2024 Patient encounter procedure Sy VARGAS -[facility] Work Phone: Start: 09-04-2024 End: 09-04-2024 ambulatory No Primary Care Physician [facility] Work Phone: Start: 08-22-2024 End: 08-22-2024 Patient encounter procedure Lali Solo CN -[facility] Work Phone: Start: 08-22-2024 End: 08-22-2024 ambulatory No Primary Care Physician [facility] Work Phone: Start: 08-07-2024 End: 08-07-2024 Patient encounter procedure Sy VARGAS -[facility] Work Phone: Start: 08-07-2024 End: 08-07-2024 ambulatory No Primary Care Physician [facility] Work Phone: Start: 08-07-2024 End: 08-07-2024 ambulatory No Primary Care Physician Facility:[facility] Start: 07-10-2024 End: 07-10-[address] Liset Nick MD -[facility] Work Phone: Start: 07-10-2024 End: 07-10-2024 ambulatory No Primary Care Physician Facility:[facility] Start: 06-29-2024 End: 06-29-2024 ambulatory MD NO PRIMARY CARE [facility] Start: 06-12-2024 End: 06-12-2024 Patient encounter procedure Lali Solo CNM -[facility] Work Phone: Start: 06-12-2024 End: 06-12-2024 ambulatory No Primary Care Physician Facility:[facility] Start: 05-15-2024 End: 05-15-2024 Patient encounter procedure Sy VARGAS -[facility] Work Phone: Start: 05-15-2024 End: 05-15-2024 ambulatory No Primary Care Physician Facility:[facility] Start: 05-15-2024 End: 05-15-2024 ambulatory No Primary Care Physician Facility:[facility] Start: 04-17-2024 End: 04-17-[address] Suyapa Fabian DO -Laboratory Specimen Work Phone: Start: 04-17-2024 End: 04-17-[address] Suyapa Fabian DO -[facility] Work Phone: Start: 04-17-2024 End: 04-17-2024 ambulatory No Primary Care Physician Facility:[facility] Start: 04-17-2024 End: 04-17-2024 ambulatory No Primary Care Physician Facility:[facility] Start: 04-11-2024 ambulatory No Primary Car e Physician Facility:[facility] Procedures Date Procedure Procedure Detail Performing Clinician Start: 10-23-2024 Beta-hemolytic Strep tococcus culture No Primary Care Physician Start: 10-12-2024 Ultrasound scan for growth No Primary Care Physician Start: 08-07-2024 Serologic test for syphilis No Primary Care Physician Start: 05-15-2024 Hepatitis B surface antigen measurement No Primary Care Physician Start: 05-15-2024 Hepatitis C antibody measurement No Primary Care Physician Comment on above: Non Reactive: < 0.8 Equivocal: >/= 0.8 to < 1.0 Reactive: >/= 1.0The CDC requires that a reactive/equivocal HCV antibody result be sent out for confirmation. HCV Quant by PCR testing. Start: 05-15-2024 Rubella IgG measurement No Primary Care Physician Comment on above: Antibody Results Int erpretation of Immune Status Non Reactive Presumed Non-Immune Equivocal Equivocal Reactive Presumed Immune Start: 04-17-2024 Liquid based cervica l cytology screening No Primary Care Physician Comment on above: NEGATIVE FOR INTRAEP ITHELIAL LESION OR MALIGNANCY. This liquid based Th inPrep(R) pap test was screened withthe use of an image guided system. The HPV DNA reflex c riteria were not met with this specimenresult therefore, no HPV testing was performed.Performed at: [address] [id number] Director: Brittani Beckman MD, Phone: [phone] Start: 04-17-2024 Urine culture No Primar y Care Physician Plan of Treatment Date Care Activity Detail Author Streptococcus agalac tiae [Presence] in Unspecified specimen by Organism specific culture [facility] Ultrasound scan for growth [facility] Immunizations Immunization Date Immunization Notes Care Provider Fa cility 12-27-2020 tetanus toxoid, redu laurel diphtheria toxoid, and acellular pertussis vaccine, adsorbed No Primary Care Physician [facility] Payers Date Payer Category Payer Self-pay 2024 Unknown [id number] 2000 Unknown [id number] 2.16. [id number] 2000 Unknown [id number] 2.16. [id number] Unknown [id number] 2.16.8 40.1.592352.3.579.2.462 Unknown [id number] 2.16.8 40.1.536406.3.579.2.462 Unknown [id number] 2.16.8 40.1.076240.3.579.2.462 Unknown [id number] 2.16.8 40.1.093915.3.579.2.462 Unknown [id number] 2.16.8 40.1.107458.3.579.2.462 Unknown [id number] 2.16.8 40.1.208619.3.579.2.462 Unknown [id number] 2.16.8 40.1.551167.3.579.2.462 Unknown [id number] 2.16.8 40.1.661752.3.579.2.462 Unknown [id number] 2.16.8 40.1.273429.3.579.2.462 Unknown [id number] 2.16.8 40.1.853176.3.579.2.462 Unknown [id number] 2.16.8 40.1.442513.3.579.2.462 Unknown [id number] 2.16.8 40.1.903493.3.579.2.462 Unknown [id number] 2.16.8 40.1.730508.3.579.2.462 Unknown [id number] 2.16.8 40.1.163524.3.579.2.462 Unknown [id number] 2.16.8 40.1.234448.3.579.2.462 Unknown [id number] 2.16.8 40.1.251935.3.579.2.462 Unknown [id number] 2.16.8 40.1.571955.3.579.2.462 Unknown [id number] 2.16.8 40.1.145570.3.579.2.462 Unknown [id number] 2.16.8 40.1.059815.3.579.2.462 Social History Date Type Detail Facility [facility]: [facility]11[facility] Start: 10-26-2017 Alcohol Alcohol [facility] Start: 07-12-2020 Lives Lives [facility] Start: 2000 Sex Assigned At Female W [facility] Medical Equipment Procedure Code Equipment Code Equipment Origin al Text Equipment Identifier Dates Blood Sugar Diagnostic (Blood Glucose Test) strip Start: 01-10-2021 End: 04-11-2021 Lancets (Bd Ultra-Fine Ii Lancets) 30 gauge misc Start: 01-10-2021 End: 04-11-2021 Blood Sugar Diagnostic (Blood Glucose Test) strip Start: 01-10-2021 End: 04-11-2021 Lancets (Bd Ultra-Fine Ii Lancets) 30 gauge misc Start: 01-10-2021 End: 04-11-2021 Blood Sugar Diagnostic (Blood Glucose Test) strip Start: 01-10-2021 End: 04-11-2021 Lancets (Bd Ultra-Fine Ii Lancets) 30 gauge misc Start: 01-10-2021 End: 04-11-2021 Blood Sugar Diagnostic (Blood Glucose Test) strip Start: 01-10-2021 End: 04-11-2021 Lancets (Bd Ultra-Fine Ii Lancets) 30 gauge misc Start: 01-10-2021 End: 04-11-2021 Blood Sugar Diagnostic (Blood Glucose Test) strip Start: 01-10-2021 End: 04-11-2021 Lancets (Bd Ultra-Fine Ii Lancets) 30 gauge misc Start: 01-10-2021 End: 04-11-2021 Blood Sugar Diagnostic (Blood Glucose Test) strip Start: 01-10-2021 End: 04-11-2021 Lancets (Bd Ultra-Fine Ii Lancets) 30 gauge misc Start: 01-10-2021 End: 04-11-2021 Blood Sugar Diagnostic (Blood Glucose Test) strip Start: 01-10-2021 End: 04-11-2021 Lancets (Bd Ultra-Fine Ii Lancets) 30 gauge misc Start: 01-10-2021 End: 04-11-2021 Blood Sugar Diagnostic (Blood Glucose Test) strip Start: 01-10-2021 End: 04-11-2021 Lancets (Bd Ultra-Fine Ii Lancets) 30 gauge misc Start: 01-10-2021 End: 04-11-2021 Blood Sugar Diagnostic (Blood Glucose Test) strip Start: 01-10-2021 End: 04-11-2021 Lancets (Bd Ultra-Fine Ii Lancets) 30 gauge misc Start: 01-10-2021 End: 04-11-2021 Clinical Notes 04-17-2024 to 10-23-2024 Note Date & Type Note Facility 10-23-2024 Progress note [facility] 10-13-2024 Radiology Diagnostic study note [facility] Imaging Services [address] [place] [address] OB Limited With Biometrics MR#: [id number] Acct: [id number] Name: OSCAR VO Rep #: [id number] : 2000 F 24 From: You Rai MD PCP: Care Physician,No Primary Status: REG CLI Study:OB Limited With Biometrics Date of Exam : 10/12/24 Exam# [id number] Ordering Dr: Lali Solo CNM PROCEDURE: OB LIMITED WITH BIOMETRICS 10/12/2024 REASON FOR EXAM: GROWTH TECHNIQUE: OB LIMITED WITH BIOMETRICS COMPARISON: None FINDINGS LMP: February 05, 2024. Number: 1 Position: Vertex Placental Position: Posterior and not low-lying. Placental Abnormalities: No evidence of previa. DIMENSIONS: Biparietal Diameter: 8.8 cm: 35 weeks and 3 days: 50 percentile./ Head Circumference: 31.7 cm: 35 weeks and 5 days: 18 percentile/ Abdominal Circumference: 32.7 cm: 36 weeks and 4 days: 83rd percentile/ Femur Length: 6.8 cm: 35 weeks and 0 days: 27 percentile/ ESTIMATED WEIGHT: 2859 g plus/-429 g ESTIMATED WEIGHT PERCENTILE (24+ weeks): 62 ESTIMATED GESTATIONAL AGE: Baseline: 35 weeks and 5 days By Ultrasound: 35 weeks and 4 days ESTIMATED DATE OF DELIVERY: Baseline: November 11, 2024 By Ultrasound: November 12, 2024 BIOPHYSICAL ASSESSMENT: Amniotic Fluid Volume: 5.5 cm Amniotic Fluid Index: 17.2 (8-24 cm normal range) Cardiac Motion: 143 beats per minute (average) Trunk and Limb Motion: Present. MATERNAL ANATOMY: Adnexa: Neither maternal ovary is successfully identified. US/OB Limited With Biometrics IMPRESSION: Single live intrauterine gestation with a mean gestational age of 35 weeks and 4days. Reading Location: [facility] CC: PARLU Solo; No Primary Care Physician ~ [employer] Operator: Signed [facility] 10-02-2024 Progress note [facility] 09-18-2024 Progress note [facility] 09-04-2024 Progress note [facility] 08-22-2024 Progress note [facility] 07-10-2024 Evaluation note Diagnosis Onset Date Resolution Echogenic focus of heart of fetus affecting antepartum care of mother acute July 10, 2024 8:49am History of hemorrhage, currently acute July 10, 2024 8:49am History of shoulder dystocia in prior , currently acute July 10, 2024 8:49am Obesity affecting acute July 10, 2024 8:49am acute July 10 8:49am Supervision of high-risk acute July 10, 2024 8:49am Low lying placenta, antepartum resolved July 10, 2024 8:49am Echogenic focus of heart of fetus affecting antepartum care of mother acute August 07, 2024 9 :43am History of hemorrhage, currently acute August 07, 2024 9 :43am History of shoulder dystocia in prior , currently acute August 07, 2024 9 :43am Obesity affecting acute August 07, 2024 9 :43am acute August 07, 2024 9:43am Supervision of high-risk acute August 07 9:43am Low lying placenta, antepartum resolved August 07, 2024 9 :43am Echogenic focus of heart of fetus affecting antepartum care of mother acute August 22, 2024 10:45am History of hemorrhage, currently acute August 22, 2024 10:45am History of shoulder dystocia in prior , currently acute August 22, 2024 10:45am Obesity affecting acute August 22, 2024 10:45am acute August 22, 2024 10:45am Supervision of high-risk acute August 22 10:45am Low lying placenta, antepartum resolved August 22, 2024 10:45am Echogenic focus of heart of fetus affecting antepartum care of mother acute September 04, 2024 10:00am History of hemorrhage, currently acute September 04, 2024 10:00am History of shoulder dystocia in prior , currently acute September 04, 2024 10:00am Obesity affecting acute September 04, 2024 10:00am acute September 04, 2024 10:00am Supervision of high-risk acute September 04 10:00am Echogenic focus of heart of fetus affecting antepartum care of mother acute September 18, 2024 9:47am History of hemorrhage, currently acute September 18, 2024 9:47am History of shoulder dystocia in prior , currently acute September 18, 2024 9:47am Obesity affecting acute September 18, 2024 9:47am acute September 18 9:47am Supervision of high-risk acute September 18 9:47am Echogenic focus of heart of fetus affecting antepartum care of mother acute October 02, 2024 9 :56am History of hemorrhage, currently acute October 02, 2024 9 :56am History of shoulder dystocia in prior , currently acute October 02, 2024 9 :56am Obesity affecting acute October 02, 2024 9 :56am acute October 02, 2024 9:56am Supervision of high-risk acute October 02 9:56am [facility] Work Phone: 1(968) 585-790804-14-2025 Evaluation note* Diagnosis Onset Date Resolution Status Admit Date Echogenic focus of heart of fetus affecting antepartum care of mother acute July 10, 2024 8:49am History of hemorrhage, currently acute A [facility] 2024 8:49am History of shoulder dystocia in prior , currently acute July 10, 2024 8:49am Obesity affecting acute July 10, 2024 8:49am acute July 10 8:49am Supervision of high-risk acute July 10, 2024 8:49am Low lying placenta, antepartum resol claudia July 10, 2024 8:49am Echogenic focus of heart of fetus affecting antepartum care of mother acute August 07, 2024 9 :43am History of hemorrhage, currently acute 2024 9:43am History of shoulder dystocia in prior , currently acute August 07, 2024 9 :43am Obesity affecting acute August 07, 2024 9:43am acute August 07, 2024 9:43am Supervision of high-risk acute August 07, 2024 9 :43am Low lying placenta, antepartum resol claudia August 07, 2024 9:43am Echogenic focus of heart of fetus affecting antepartum care of mother acute August 22, 2024 1 0:45am History of hemorrhage, currently acute [facility] 2024 10:45am History of shoulder dystocia in prior , currently acute August 22, 2024 1 0:45am Obesity affecting acute August 22, 2024 10:45am acute August 22, 2024 10:45am Supervision of high-risk acute August 22, 2024 1 0:45am Low lying placenta, antepartum resol claudia August 22, 2024 10:45am Echogenic focus of heart of fetus affecting antepartum care of mother acute September 04, 2024 1 0:00am History of hemorrhage, currently acute [facility] 2024 10:00am History of shoulder dystocia in prior , currently acute September 04, 2024 1 0:00am Obesity affecting acute September 04, 2024 10:00am acute September 04, 2024 10:00am Supervision of high-risk acute September 04, 2024 1 0:00am Echogenic focus of heart of fetus affecting antepartum care of mother acute September 18, 2024 9:47am History of hemorrhage, currently acute [facility] 2024 9:47am History of shoulder dystocia in prior , currently acute September 18, 2024 9:47am Obesity affecting acute September 18, 2024 9:47am acute September 18 9:47am Supervision of high-risk acute September 18, 2024 9:47am Echogenic focus of heart of fetus affecting antepartum care of mother acute October 02, 2024 9 :56am History of hemorrhage, currently acute J 2024 9:56am History of shoulder dystocia in prior , currently acute October 02, 2024 9 :56am Obesity affecting acute October 02, 2024 9:56am acute October 02, 2024 9:56am Supervision of high-risk acute October 02, 2024 9 :56am Echogenic focus of heart of fetus affecting antepartum care of mother acute October 23, 2024 9:56am History of hemorrhage, currently acute J [email or web address] 9:56am History of shoulder dystocia in prior , currently acute October 23, 2024 9:56am Obesity affecting acute October 23, 2024 9:56am acute October 23 9:56am Supervision of high-risk acute October 23, 2024 9:56am [facility] Work Phone: 1(918) 425-355304-14-2025 Evaluation note* Diagnosis Onset Date Resolution Status Admit Date Echogenic focus of heart of fetus affecting antepartum care of mother acute July 10, 2024 8:49am History of hemorrhage, currently acute A pril 2024 8:49am History of shoulder dystocia in prior , currently acute July 10, 2024 8:49am Obesity affecting acute July 10, 2024 8:49am acute July 10 8:49am Supervision of high-risk acute July 10, 2024 8:49am Low lying placenta, antepartum resol claudia July 10, 2024 8:49am Echogenic focus of heart of fetus affecting antepartum care of mother acute August 07, 2024 9 :43am History of hemorrhage, currently acute M 2024 9:43am History of shoulder dystocia in prior , currently acute August 07, 2024 9 :43am Obesity affecting acute August 07, 2024 9:43am acute August 07, 2024 9:43am Supervision of high-risk acute August 07, 2024 9 :43am Low lying placenta, antepartum resol claudia August 07, 2024 9:43am Echogenic focus of heart of fetus affecting antepartum care of mother acute August 22, 2024 1 0:45am History of hemorrhage, currently acute M ay 2024 10:45am History of shoulder dystocia in prior , currently acute August 22, 2024 1 0:45am Obesity affecting acute August 22, 2024 10:45am acute August 22, 2024 10:45am Supervision of high-risk acute August 22, 2024 1 0:45am Low lying placenta, antepartum resol claudia August 22, 2024 10:45am Echogenic focus of heart of fetus affecting antepartum care of mother acute September 04, 2024 1 0:00am History of hemorrhage, currently acute J [facility] 2024 10:00am History of shoulder dystocia in prior , currently acute September 04, 2024 1 0:00am Obesity affecting acute September 04, 2024 10:00am acute September 04, 2024 10:00am Supervision of high-risk acute September 04, 2024 1 0:00am Echogenic focus of heart of fetus affecting antepartum care of mother acute September 18, 2024 9:47am History of hemorrhage, currently acute [facility] 2024 9:47am History of shoulder dystocia in prior , currently acute September 18, 2024 9:47am Obesity affecting acute September 18, 2024 9:47am acute September 18 9:47am Supervision of high-risk acute September 18, 2024 9:47am Echogenic focus of heart of fetus affecting antepartum care of mother acute October 02, 2024 9 :56am History of hemorrhage, currently acute J [email or web address] 9:56am History of shoulder dystocia in prior , currently acute October 02, 2024 9 :56am Obesity affecting acute October 02, 2024 9:56am acute October 02, 2024 9:56am Supervision of high-risk acute October 02, 2024 9 :56am Echogenic focus of heart of fetus affecting antepartum care of mother acute October 23, 2024 9:56am History of hemorrhage, currently acute J chandni 2024 9:56am History of shoulder dystocia in prior , currently acute October 23, 2024 9:56am Obesity affecting acute October 23, 2024 9:56am acute October 23 9:56am Supervision of high-risk acute October 23, 2024 9:56am Echogenic focus of heart of fetus affecting antepartum care of mother acute October 31, 2024 9:36am History of hemorrhage, currently acute A ug2024 9:36am History of shoulder dystocia in prior , currently acute October 31, 2024 9:36am Obesity affecting acute October 31, 2024 9:36am acute October 31 9:36am Supervision of high-risk acute October 31, 2024 9:36am [facility] Work Phone: 1(994) 397-258203-17-2025 Evaluation note* Diagnosis Onset Date Resolution Status Admit Date History of hemorrhage, currently acute M arch 2024 3:14pm History of shoulder dystocia in prior , currently acute June 12, 2024 3:14pm Obesity affecting acute June 12, 2024 3:14pm acute June 12 3:14pm Supervision of high-risk acute June 12, 2024 3:14pm Adopted resolved June 12 3:14pm History of miscarriage, currently resolved June 12, 2 025 3:14pm Echogenic focus of heart of fetus affecting antepartum care of mother acute July 10, 2024 8:49am History of hemorrhage, currently acute A pril 2024 8:49am History of shoulder dystocia in prior , currently acute July 10, 2024 8:49am Obesity affecting acute July 10, 2024 8:49am acute July 10 8:49am Supervision of high-risk acute July 10, 2024 8:49am Low lying placenta, antepartum resol claudia July 10, 2024 8:49am Echogenic focus of heart of fetus affecting antepartum care of mother acute August 07, 2024 9 :43am History of hemorrhage, currently acute M ay 2024 9:43am History of shoulder dystocia in prior , currently acute August 07, 2024 9 :43am Obesity affecting acute August 07, 2024 9:43am acute August 07, 2024 9:43am Supervision of high-risk acute August 07, 2024 9 :43am Low lying placenta, antepartum resol claudia August 07, 2024 9:43am Echogenic focus of heart of fetus affecting antepartum care of mother acute August 22, 2024 1 0:45am History of hemorrhage, currently acute M ay 2024 10:45am History of shoulder dystocia in prior , currently acute August 22, 2024 1 0:45am Obesity affecting acute August 22, 2024 10:45am acute August 22, 2024 10:45am Supervision of high-risk acute August 22, 2024 1 0:45am Low lying placenta, antepartum resol claudia August 22, 2024 10:45am Echogenic focus of heart of fetus affecting antepartum care of mother acute September 04, 2024 1 0:00am History of hemorrhage, currently acute J [facility] 2024 10:00am History of shoulder dystocia in prior , currently acute September 04, 2024 1 0:00am Obesity affecting acute September 04, 2024 10:00am acute September 04, 2024 10:00am Supervision of high-risk acute September 04, 2024 1 0:00am Echogenic focus of heart of fetus affecting antepartum care of mother acute September 18, 2024 9:47am History of hemorrhage, currently acute J [facility] 2024 9:47am History of shoulder dystocia in prior , currently acute September 18, 2024 9:47am Obesity affecting acute September 18, 2024 9:47am acute September 18 9:47am Supervision of high-risk acute September 18, 2024 9:47am [facility] Work Phone: 1(375) 553-312903-17-2025 Evaluation note* Diagnosis Onset Date Resolution Status Admit Date History of hemorrhage, currently acute M arch 2024 3:14pm History of shoulder dystocia in prior , currently acute June 12, 2024 3:14pm Obesity affecting acute June 12, 2024 3:14pm acute June 12 3:14pm Supervision of high-risk acute June 12, 2024 3:14pm Adopted resolved June 12 3:14pm History of miscarriage, currently resolved June 12, 2 025 3:14pm Echogenic focus of heart of fetus affecting antepartum care of mother acute July 10, 2024 8:49am History of hemorrhage, currently acute A pril 2024 8:49am History of shoulder dystocia in prior , currently acute July 10, 2024 8:49am Obesity affecting acute July 10, 2024 8:49am acute July 10 8:49am Supervision of high-risk acute July 10, 2024 8:49am Low lying placenta, antepartum resol claudia July 10, 2024 8:49am Echogenic focus of heart of fetus affecting antepartum care of mother acute August 07, 2024 9 :43am History of hemorrhage, currently acute M 2024 9:43am History of shoulder dystocia in prior , currently acute August 07, 2024 9 :43am Obesity affecting acute August 07, 2024 9:43am acute August 07, 2024 9:43am Supervision of high-risk acute August 07, 2024 9 :43am Low lying placenta, antepartum resol claudia August 07, 2024 9:43am Echogenic focus of heart of fetus affecting antepartum care of mother acute August 22, 2024 1 0:45am History of hemorrhage, currently acute M ay 2024 10:45am History of shoulder dystocia in prior , currently acute August 22, 2024 1 0:45am Obesity affecting acute August 22, 2024 10:45am acute August 22, 2024 10:45am Supervision of high-risk acute August 22, 2024 1 0:45am Low lying placenta, antepartum resol claudia August 22, 2024 10:45am Echogenic focus of heart of fetus affecting antepartum care of mother acute September 04, 2024 1 0:00am History of hemorrhage, currently acute J [facility] 2024 10:00am History of shoulder dystocia in prior , currently acute September 04, 2024 1 0:00am Obesity affecting acute September 04, 2024 10:00am acute September 04, 2024 10:00am Supervision of high-risk acute September 04, 2024 1 0:00am Echogenic focus of heart of fetus affecting antepartum care of mother acute September 18, 2024 9:47am History of hemorrhage, currently acute J [facility] 2024 9:47am History of shoulder dystocia in prior , currently acute September 18, 2024 9:47am Obesity affecting acute September 18, 2024 9:47am acute September 18 9:47am Supervision of high-risk acute September 18, 2024 9:47am Echogenic focus of heart of fetus affecting antepartum care of mother acute October 02, 2024 9 :56am History of hemorrhage, currently acute [facility]2024 9:56am History of shoulder dystocia in prior , currently acute October 02, 2024 9 :56am Obesity affecting acute October 02, 2024 9:56am acute October 02, 2024 9:56am Supervision of high-risk acute October 02, 2024 9 :56am [facility] Work Phone: 1(428) 352-925302-17-2025 Evaluation note* Diagnosis Onset Date Resolution Status Admit Date History of hemorrhage, currently acute May 15, 2 025 3:43pm History of shoulder dystocia in prior , currently acute May 15, 2 025 3:43pm Obesity affecting acute May 15, 2024 3:43pm acute May 15, 2024 3:43pm Supervision of high-risk acute May 15, 2 025 3:43pm Adopted resolved May 15, 2024 3:43pm History of miscarriage, currently resolved April 3:43pm History of hemorrhage, currently acute June 12, 2024 3:14pm History of shoulder dystocia in prior , currently acute June 12, 2024 3:14pm Obesity affecting acute June 12, 2024 3:14pm acute June 12 3:14pm Supervision of high-risk acute June 12, 2024 3:14pm Adopted resolved June 12 3:14pm History of miscarriage, currently resolved June 12, 2 025 3:14pm Echogenic focus of heart of fetus affecting antepartum care of mother acute July 10, 2024 8:49am History of hemorrhage, currently acute July 10, 2024 8:49am History of shoulder dystocia in prior , currently acute July 10, 2024 8:49am Low lying placenta, antepartum acute July 10, 2024 8:49am Obesity affecting acute July 10, 2024 8:49am acute July 10 8:49am Supervision of high-risk acute July 10, 2024 8:49am Echogenic focus of heart of fetus affecting antepartum care of mother acute August 07, 2024 9 :43am History of hemorrhage, currently acute August 07, 2024 9 :43am History of shoulder dystocia in prior , currently acute August 07, 2024 9 :43am Low lying placenta, antepartum acute August 07, 2024 9 :43am Obesity affecting acute August 07, 2024 9:43am acute August 07, 2024 9:43am Supervision of high-risk acute August 07, 2024 9 :43am Echogenic focus of heart of fetus affecting antepartum care of mother acute August 22, 2024 1 0:45am History of hemorrhage, currently acute August 22, 2024 1 0:45am History of shoulder dystocia in prior , currently acute August 22, 2024 1 0:45am Low lying placenta, antepartum acute August 22, 2024 1 0:45am Obesity affecting acute August 22, 2024 10:45am acute August 22, 2024 10:45am Supervision of high-risk acute August 22, 2024 1 0:45am [facility] Work Phone: 1(921) 893-893002-17-2025 Evaluation note* Diagnosis Onset Date Resolution Status Admit Date History of hemorrhage, currently acute May 15, 2 025 3:43pm History of shoulder dystocia in prior , currently acute May 15, 2 025 3:43pm Obesity affecting acute May 15, 2024 3:43pm acute May 15, 2024 3:43pm Supervision of high-risk acute May 15 2 025 3:43pm Adopted resolved May 15, 2024 3:43pm History of miscarriage, currently resolved April 3:43pm History of hemorrhage, currently acute June 12, 2024 3:14pm History of shoulder dystocia in prior , currently acute June 12, 2024 3:14pm Obesity affecting acute June 12, 2024 3:14pm acute June 12 3:14pm Supervision of high-risk acute June 12, 2024 3:14pm Adopted resolved June 12 3:14pm History of miscarriage, currently resolved June 12, 2 025 3:14pm Echogenic focus of heart of fetus affecting antepartum care of mother acute July 10, 2024 8:49am History of hemorrhage, currently acute July 10, 2024 8:49am History of shoulder dystocia in prior , currently acute July 10, 2024 8:49am Obesity affecting acute July 10, 2024 8:49am acute July 10 8:49am Supervision of high-risk acute July 10, 2024 8:49am Low lying placenta, antepartum resolved July 10, 2024 8:49am Echogenic focus of heart of fetus affecting antepartum care of mother acute August 07, 2024 9 :43am History of hemorrhage, currently acute August 07, 2024 9 :43am History of shoulder dystocia in prior , currently acute August 07, 2024 9 :43am Obesity affecting acute August 07, 2024 9:43am acute August 07, 2024 9:43am Supervision of high-risk acute August 07, 2024 9 :43am Low lying placenta, antepartum resolved August 07, 2024 9 :43am Echogenic focus of heart of fetus affecting antepartum care of mother acute August 22, 2024 1 0:45am History of hemorrhage, currently acute August 22, 2024 1 0:45am History of shoulder dystocia in prior , currently acute August 22, 2024 1 0:45am Obesity affecting acute August 22, 2024 10:45am acute August 22, 2024 10:45am Supervision of high-risk acute August 22, 2024 1 0:45am Low lying placenta, antepartum resolved August 22, 2024 1 0:45am Echogenic focus of heart of fetus affecting antepartum care of mother acute September 04, 2024 1 0:00am History of hemorrhage, currently acute September 04, 2024 1 0:00am History of shoulder dystocia in prior , currently acute September 04, 2024 1 0:00am Obesity affecting acute September 04, 2024 10:00am acute September 04, 2024 10:00am Supervision of high-risk acute September 04, 2024 1 0:00am [facility] Work Phone: 1(682) 839-408301-20-2025 Evaluation note* Diagnosis Onset Date Resolution Status Admit Date History of hemorrhage, currently acute April 17 2:58pm History of shoulder dystocia in prior , currently acute April 17 2:58pm Obesity affecting acute April 17, 2024 2:58pm acute April 17, 2024 2:58pm Supervision of high-risk acute April 17 2:58pm Adopted resolved April 17, 2024 2:58pm History of GBS (group B streptococcus) UTI, currently resolved April 17 2:58pm History of miscarriage, currently resolved April 17, 2024 2:58pm History of hemorrhage, currently acute May 15, 2 025 3:43pm History of shoulder dystocia in prior , currently acute May 15, 2 025 3:43pm Obesity affecting acute May 15, 2024 3:43pm acute May 15, 2024 3:43pm Supervision of high-risk acute May 15, 2 025 3:43pm Adopted resolved May 15, 2024 3:43pm History of miscarriage, currently resolved April 3:43pm History of hemorrhage, currently acute June 12, 2024 3:14pm History of shoulder dystocia in prior , currently acute June 12, 2024 3:14pm Obesity affecting acute June 12, 2024 3:14pm acute June 12 3:14pm Supervision of high-risk acute June 12, 2024 3:14pm Adopted resolved June 12 3:14pm History of miscarriage, currently resolved June 12, 2 025 3:14pm Echogenic focus of heart of fetus affecting antepartum care of mother acute July 10, 2024 8:49am History of hemorrhage, currently acute July 10, 2024 8:49am History of shoulder dystocia in prior , currently acute July 10, 2024 8:49am Low lying placenta, antepartum acute July 10, 2024 8:49am Obesity affecting acute July 10, 2024 8:49am acute July 10 8:49am Supervision of high-risk acute July 10, 2024 8:49am Echogenic focus of heart of fetus affecting antepartum care of mother acute August 07, 2024 9 :43am History of hemorrhage, currently acute August 07, 2024 9 :43am History of shoulder dystocia in prior , currently acute August 07, 2024 9 :43am Low lying placenta, antepartum acute August 07, 2024 9 :43am Obesity affecting acute August 07, 2024 9:43am acute August 07, 2024 9:43am Supervision of high-risk acute August 07, 2024 9 :43am [facility] Work Phone: Progress note Author Lali Solo [facility] Note Date/Time August 22, 2024 11:15 am 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 Required: No Is patient in pain?: No Allergies tree nut Allergy (Verified 08/22/24 10:53) Anaphylaxis Medications ?Medication ?Instructions ?Recorded ?Confirmed ?Type multivitamin 1 tab PO QDAY 06/12/2408/22 History Last Menstrual Period: 02/05/24 Have you fallen in the past year?: No PFSH PFSH Medical History Adopted Vaginal delivery hemorrhage Social History adopted: Yes household members: spouse and children housing: house number of children: 2 current occupational status: employed 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[employer]) [employer] current occupational exposures/hazards: No pets and animals: No history of recent travel: No sexually active: Yes Smoking Status: Never smoker second hand exposure: No alcohol intake: never substance use type: does not use well-balanced diet: daily or most days caffeine: No eating out: rarely or never during the past year weight has: remained stable what type of physical activity do you participate in: none and walking frequency: daily duration: 30-45 minutes/day sangeeta/religious: Orthodoxy seatbelt use: always do you feel safe at home: Yes additional social history: : Abdirahman - [employer] History 4 Elective abortions Hx Para 2 Spontaneous abortions 1 Hx # Term Pregnancies 2 Ectopic pregnancies Hx # Pregnancies Multiple births # of living children 2 Past Pregnancies Del. Date Name GA/Weeks Outcome Route Bth Weight Gen Labor Lgth Anesthesia Del Locatn Provider FOB 10/27/17 Marta 40 live - full term 8lbs 6oz Female 16.5 hours epidural [facility] Dr. Rhett Gary 12/28/19 6 03/02/21 Fern 39 live - full term 71b 12oz Female epidural [facility] Shannon Gary Delivery Date: 10/27/17 Last Updated by: Nicol Pabon lightly stained meconium; unable to deliver shoulder; 2nd degree episiotomy cut & then with maternal pushing effort the posterior shoulder delivered; uterine atony-cytotec $ metheringine in addition to pitocin; TAUS performed & gentle banjo curettage performed; cervical laceration 5 o'clock Delivery Date: 12/28/19 Last Updated by: Daylin Mcnally RN No intervention needed Delivery Date: 03/02/21 Last Updated by: Luba Vo IOL 39 wk HPI 28 wk ob Details: OSCAR VO is a 24 year old who presents for routine OB visit. OB Visit MARIA T Calculator Estimated Delivery Date Method Current WG Current Estimate 11/11/24 LMP (Certain) 28w 3d Expected Delivery Route/Plan Labor Preferences- CB/BF classes: no labor support person: Abdirahman labor intervention preferences: [] pain management options preferred: epidural if requested cut cord/dad catch: yes : yes PP control planned: discussed discussed possible routes of delivery and associated risks: [] special requests: [] Specific Issue/Plans Covid status: [] Flu vaccine: [] Tdap vaccine: [] Rhogam: na LARC form signed: yes Problem list reviewed and updated with the most current plan of care details and appropriate orders placed. Relevant counseling for the gestational age provided. Continue routine care and follow up unless otherwise noted in visit notes/problem list details Initial Weight: Not Recorded Date -?-?-?-?-?-?-?-?-?-?-?-?- EGA Weight BP Urine Prot -?-?-?-?-?-?-?-?-?-?-?-?- Glucose FHR FuHt Pres Dilation -?-?-?-?-?-?-?-?-?-?-?-?- Effaced St Visit Note 04/17/24 -?-?-?-?-?-?-?-?-?-?-?-?- 10w 2d 219 lb 2 oz 113/73 -?-?-?-?-?-?-?-?-?-?-?-?- 171 -?-?-?-?-?-?-?-?-?-?-?-?- JV- CRL consiste nt with LMP. Declines nipt. wants to do new ob labs next visit due to time restraints today. 05/15/24 -?-?-?-?-?--?-?-?-?-?-?-?- 14w 2d 218 lb 6 oz 122/80 Nega tive -?-?-?-?-?-?-?-?-?-?-?-?- Negative 154 -?-?-?-?-?-?-?-?-?-?-?-?- MH-No VB. Brief US confirm live IUP. PN labs. 06/12/24 -?-?-?-?-?-?-?-?-?-?-?-?- 18w 2d 214 lb 6 oz 110/69 Nega tive -?-?-?-?-?-?-?-?-?-?-?-?- Negative 145 -?-?-?-?-?-?-?-?-?-?-?-?- KW- no vb/kristi engel. +flutters. US scheduled 06/29. no concerns 07/10/24 -?-?-?-?-?-?-?-?-?-?-?-?- 22w 2d 211 lb 4 oz 128/84 Nega tive -?-?-?-?-?-?-?-?-?-?-?-?- Negative 150 -?-?-?-?-?-?-?-?-?-?-?-?- SM- no vb lof go od fm no reuglar ctx 08/07/24 -?-?-?-?-?-?-?-?-?-?-?-?- 26w 2d 215 lb 8 oz 124/74 Nega tive -?-?-?-?-?-?-?-?-?-?-?-?- Negative 141 26 -?-?-?-?-?-?-?-?-?-?-?-?- MH-No VB, LOF. G ood Fm. Larc. 28 wk labs pending. 08/22/24 -?-?-?-?-?-?-?-?-?-?-?-?- 28w 3d 217 lb 120/82 -?-?-?-?-?-?-?-?-?-?-?-?- 150 30 -?-?-?-?-?-?-?-?-?-?-?-?- KW- no vb/lof/ct x. good fm had follow up US today. having some anxiety at night. declines Tdap vaccine. KW- no vb/lof/ctx. good fm h ad follow up US today. having some anxiety at night. declines medications but did discuss counseling and stress reducing techniques she would like to try. declines Tdap vaccine. ACOG Second Trimester Second Trimester: Signs and Symptoms of Labor, Selecting a care provider, Reproductive Life Planning & Contreception and Care Planning; Discussed Tobacco Cessation, Discussed Depression/Anxiety and Discussed Intimate Partner Violence Third Trimester Third Trimester: Pain Management Plans, Labor support person(s), Immediate Larc, Circumcision preference, Movement Monitoring, Signs and Symptoms of Preeclampsia, Infant Feeding, [place] Education and Family Medical Leave or Disability Forms ROS Const Reports system reviewed and no additional complaints, except as documented Eyes Reports system reviewed and no additional complaints, except as documented ENT Reports system reviewed and no additional complaints, except as documented Card Reports system reviewed and no additional complaints, except as documented Resp Reports system reviewed and no additional complaints, except as documented GI Reports system reviewed and no additional complaints, except as documented, Denies nausea and Denies vomiting Reports system reviewed and no additional complaints, except as documented Musc Reports system reviewed and no additional complaints, except as documented Skin/Breast Reports system reviewed and no additional complaints, except as documented Neuro Yes system reviewed and no additional complaints, except as documented Psych Reports system reviewed and no additional complaints, except as documented Endo Reports system reviewed and no additional complaints, except as documented Michael/Lymph Reports system reviewed and no additional complaints, except as documented Aller/Immun Reports system reviewed and no additional complaints, except as documented Exam Const General: cooperative, healthy appearing and no acute distress Orientation: alert, awake and oriented x3 Neck Neck: normal visual inspection and full ROM Resp Effort & Inspection: normal respiratory effort, able to speak in complete sentences and symmetric chest movement GI Inspection: normal to inspection Palpation: soft and other Other: gravid Skin General: no rashes or lesions noted Neuro General: patient alert, patient awake and patient oriented x3 Cognition: normal cognition Speech: speech normal Gait: normal gait Motor: muscle tone normal throughout Extrem General: normal to inspection and full ROM Psych Appearance: grossly normal Mental Status: mental status grossly normal Mood: congruent mood Affect: normal affect Speech and Movement: speech and movement normal Attitude: cooperative Thought Process: normal Thought Content: normal Judgment: judgment good Coding Level of Care Code Off vis,est,level 3 Diagnoses Echogenic focus of heart of fetus affecting antepartum care of mother, single or unspecified fetus O35.BXX0 Fetus number: single or unspecified fetus Low lying placenta, antepartum O44.40 Obesity affecting in second trimester, unspecified obesity type O99.212 Obesity type affecting : unspecified obesity Trimester: second trimester History of shoulder dystocia in prior , currently O09.299 History of hemorrhage, currently O09.299 Supervision of high risk in third trimester O09.93 Trimester: third trimester 28 weeks gestation of Z3A.28 Weeks of gestation: 28 weeks Assessment and Plan Assessment and Plan (1) Echogenic focus of heart of fetus affecting antepartum care of mother: Status: Acute Qualifiers: Fetus number: single or unspecified fetus Qualified Code(s): O35.BXX0 - Maternal care for other (suspected) abnormality and damage, cardiac anomalies, not applicable or unspecified Comment: discussed and declined NIPT (2) Low lying placenta, antepartum: Status: Acute Comment: follow up at 28 week US 08/22/24: (3) Obesity affecting : Status: Acute Qualifiers: Obesity type affecting : unspecified obesity Trimester: second trimester Qualified Code(s): O99.212 - Obesity complicating , second trimester Comment: BMI 34.9, HgBA1C w/NOB (4) History of shoulder dystocia in prior , currently : Status: Acute Comment: 2017 8lb 6 ounces, 7 12 didn't have SD. plan IOL at 39 weeks growth US at 36 weeks (5) History of hemorrhage, currently : Status: Acute Comment: 2020 (6) Supervision of high-risk : Status: Acute Qualifiers: Trimester: third trimester Qualified Code(s): O09.93 - Supervision of high risk , unspecified, third trimester Comment: PRR, , MARIA T 11/11/24, boy Annmarie PC: Marta & Fern, : Abdirahman (7) : Status: Acute Qualifiers: Weeks of gestation: 28 weeks Qualified Code(s): Z3A.28 - 28 weeks gestation of Comment: Discussed genetic testing - undecided (carrier testing done in prior - NEG) Declines NIPT and AFP, nl anatomy Plan Details Additional Comments: ACOG trimester education reviewed and updated. see problem list details for updated plan management information and see below for orders placed at this visit. GA appropriate handout given. Clinical Quality Measures Falls Risk Screening/Assistive Devices Have you fallen in the past year?: No 08/22/24 1115 <Electronically signed by Lali downey CNM> Date _ Lali Solo CNM Cosigner Signature: Date (if applicable) CC: ~ [facility] Work Phone: Progress note Author Sy Nina [facility] Note Date/Time September 04, 2024 10:14 am [facility] [address], [address] [place] [address] OFFICE VISIT Date of Service: 09/04/24 MR#: [id number] Acct: [id number] Name: OSCAR VO Rep #: [id number] : 2000 Provider: ALICIA Nina Age/Sex: 24/F Location: [facility] [place] Status: Signed Intake Vital Signs 07/10/24 08:54 08/22/24 10:56 09/04/24 10:04 Height 5 ft 4 in 5 ft 4 in 5 ft 4 in Weight: 219 lb 6 oz BMI 37.6 BP 107/71 Intake Visit Reasons: 30 WK OB 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: 30 Week 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 Required: No Is patient in pain?: No Allergies tree nut Allergy (Verified 09/04/24 10:04) Anaphylaxis Medications ?Medication ?Instructions ?Recorded ?Confirmed ?Type multivitamin 1 tab PO QDAY 06/12/2409/04 History Last Menstrual Period: 02/05/24 Zika: Zika virus screening: Negative : No PFSH PFSH Medical History Adopted Vaginal delivery hemorrhage Social History adopted: Yes household members: spouse and children housing: house number of children: 2 current occupational status: employed 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[employer] current occupational exposures/hazards: No pets and animals: No history of recent travel: No sexually active: Yes Smoking Status: Never smoker second hand exposure: No alcohol intake: never substance use type: does not use well-balanced diet: daily or most days caffeine: No eating out: rarely or never during the past year weight has: remained stable what type of physical activity do you participate in: none and walking frequency: daily duration: 30-45 minutes/day sangeeta/religious: Orthodoxy seatbelt use: always do you feel safe at home: Yes additional social history: : Abdirahman - [employer]oney History 4 Elective abortions Hx Para 2 Spontaneous abortions 1 Hx # Term Pregnancies 2 Ectopic pregnancies Hx # Pregnancies Multiple births # of living children 2 Past Pregnancies Del. Date Name GA/Weeks Outcome Route Bth Weight Gen Labor Lgth Anesthesia Del Locatn Provider FOB 10/27/17 Marta 40 live - full term 8lbs 6oz Female 16.5 hours epidural [facility] Dr. Rhett Gary 12/28/19 6 03/02/21 Fern 39 live - full term 71b 12oz Female epidural [facility] Elisabethdalia ElliotFontenot Delivery Date: 10/27/17 Last Updated by: Nicol Pabon lightly stained meconium; unable to deliver shoulder; 2nd degree episiotomy cut & then with maternal pushing effort the posterior shoulder delivered; uterine atony-cytotec $ metheringine in addition to pitocin; TAUS performed & gentle banjo curettage performed; cervical laceration 5 o'clock Delivery Date: 12/28/19 Last Updated by: Daylin Mcnally RN No intervention needed Delivery Date: 03/02/21 Last Updated by: Luba Vo IOL 39 wk HPI 30 WK OB Details: OSCAR VO is a 24 year old who presents for routine OB visit. OB Visit MARIA T Calculator Estimated Delivery Date Method Current WG Current Estimate 11/11/24 LMP (Certain) 30w 2d Expected Delivery Route/Plan Labor Preferences- CB/BF classes: no labor support person: Abdirahman labor intervention preferences: [] pain management options preferred: epidural if requested cut cord/dad catch: yes : yes PP control planned: discussed discussed possible routes of delivery and associated risks: [] special requests: [] Specific Issue/Plans Covid status: [] Flu vaccine: [] Tdap vaccine: declined Rhogam: na LARC form signed: yes Problem list reviewed and updated with the most current plan of care details and appropriate orders placed. Relevant counseling for the gestational age provided. Continue routine care and follow up unless otherwise noted in visit notes/problem list details Initial Weight: Not Recorded Date -?-?-?-?-?-?-?-?-?-?-?-?- EGA Weight BP Urine Prot -?-?-?-?-?-?-?-?-?-?-?-?- Glucose FHR FuHt Pres Dilation -?-?-?-?-?-?-?-?-?-?-?-?- Effaced St Visit Note 04/17/24 -?-?-?-?-?-?-?-?-?-?-?-?- 10w 2d 219 lb 2 oz 113/73 -?-?-?-?-?-?-?-?-?-?-?-?- 171 -?-?-?-?-?-?-?-?-?-?-?-?- JV- CRL consiste nt with LMP. Declines nipt. wants to do new ob labs next visit due to time restraints today. 05/15/24 -?-?-?-?-?-?-?-?-?-?-?-?- 14w 2d 218 lb 6 oz 122/80 Nega tive -?-?-?-?-?-?-?-?-?-?-?-?- Negative 154 -?-?-?-?-?-?-?-?-?-?-?-?- MH-No VB. Brief US confirm live IUP. PN labs. 06/12/24 -?-?-?-?-?-?-?-?-?-?-?-?- 18w 2d 214 lb 6 oz 110/69 Nega tive -?-?-?-?-?-?-?-?-?-?-?-?- Negative 145 -?-?-?-?-?-?-?-?-?-?-?-?- KW- no vb/crampi ng. +flutters. US scheduled 06/29. no concerns 07/10/24 -?-?-?-?-?-?-?-?-?-?-?--?- 22w 2d 211 lb 4 oz 128/84 Nega tive -?-?-?-?-?-?-?-?-?-?-?-?- Negative 150 -?-?-?-?-?-?-?-?-?-?-?-?- SM- no vb lof go od fm no reuglar ctx 08/07/24 -?-?-?-?-?-?-?-?-?-?-?-?- 26w 2d 215 lb 8 oz 124/74 Nega tive -?-?-?-?-?-?-?-?-?-?-?-?- Negative 141 26 -?-?-?-?-?-?-?-?-?-?-?-?- MH-No VB, LOF. G meagan Fm. [facility]. 28 wk labs pending. 08/22/24 -?-?-?-?-?-?-?-?-?-?-?-?- 28w 3d 217 lb 120/82 Negative -?-?-?-?-?-?-?-?-?-?-?-?- Negative 150 30 -?-?-?-?-?-?-?-?-?-?-?-?- KW- no vb/lof/ct x. fernando erazo had follow up US today. having some anxiety at night. declines Tdap vaccine. KW- no vb/lof/ctx. fernando erazo h ad follow up US today. having some anxiety at night. declines medications but did discuss counseling and stress reducing techniques she would like to try. declines Tdap vaccine. 09/04/24 -?-?-?-?-?-?-?-?-?-?-?-?- 30w 2d 219 lb 6 oz 107/71 -?-?-?-?-?-?-?-?-?-?-?-?- 128 31 -?-?-?-?-?-?-?-?-?-?-?-?- MH-No VB, LOF. G ood Fm. Denies concerns ACOG First Trimester First Trimester: Discussed Second Trimester Second Trimester: Signs and Symptoms of Labor, Selecting a care provider, Reproductive Life Planning & Contreception and Care Planning; Discussed Tobacco Cessation, Discussed Depression/Anxiety and Discussed Intimate Partner Violence Third Trimester Third Trimester: Pain Management Plans, Labor support person(s), Immediate Larc, Circumcision preference, Movement Monitoring, Signs and Symptoms of Preeclampsia, Feeding No , [place] Education and Family Medical Leave or Disability Forms ROS Const Reports system reviewed and no additional complaints, except as documented GI Denies abdominal pain, Denies nausea and Denies vomiting Exam Const General: cooperative Nutritional Appearance: well nourished GI Palpation: soft, nontender and other (gravid) Coding Level of Care Code OB Routine Diagnoses Supervision of high risk in third trimester O09.93 Trimester: third trimester 30 weeks gestation of Z3A.30 Weeks of gestation: 30 weeks History of hemorrhage, currently O09.299 History of shoulder dystocia in prior , currently O09.299 Obesity affecting in second trimester, unspecified obesity type O99.212 Obesity type affecting : unspecified obesity Trimester: second trimester Echogenic focus of heart of fetus affecting antepartum care of mother, single or unspecified fetus O35.BXX0 Fetus number: single or unspecified fetus Assessment and Plan Assessment and Plan (1) Supervision of high-risk : Status: Acute Qualifiers: Trimester: third trimester Qualified Code(s): O09.93 - Supervision of high risk , unspecified, third trimester Comment: PRR, , MARIA T 11/11/24, boy Annmarie PC: Marta & Fern, : Abdirahman (2) : Status: Acute Qualifiers: Weeks of gestation: 30 weeks Qualified Code(s): Z3A.30 - 30 weeks gestation of Comment: Discussed genetic testing - undecided (carrier testing done in prior - NEG) Declines NIPT and AFP, nl anatomy (3) History of hemorrhage, currently : Status: Acute Comment: 2020 (4) History of shoulder dystocia in prior , currently : Status: Acute Comment: 2017 8lb 6 ounces, 7 12 didn't have SD. plan IOL at 39 weeks growth US at 36 weeks (5) Obesity affecting : Status: Acute Qualifiers: Obesity type affecting : unspecified obesity Trimester: second trimester Qualified Code(s): O99.212 - Obesity complicating , second trimester Comment: BMI 34.9, HgBA1C w/NOB (6) Echogenic focus of heart of fetus affecting antepartum care of mother: Status: Acute Qualifiers: Fetus number: single or unspecified fetus Qualified Code(s): O35.BXX0 - Maternal care for other (suspected) abnormality and damage, cardiac anomalies, not applicable or unspecified Comment: discussed and declined NIPT Orders: Orders POC Urinalysis 2 Dip (Clinic) Today Plan problem list reviewed and updated for most current plan of care and appropriate orders placed. Relevant counseling for the gestational age appropriate provided and ACOG education checklist updated. Continue routine care and follow up. 09/04/24 1014 <Electronically signed by Sy downey NP [employer]-C> Date _ Sy Nina NP [employer]-C Cosigner Signature: Date (if applicable) CC: ~ [facility] Work Phone: Progress note Author Liset Nick [facility] Note Date/Time September 18, 2024 10:0 4am [facility] [address], [address] [place] [address] OFFICE VISIT Date of Service: 09/18/24 MR#: [id number] Acct: [id number] Name: OSCAR VO Rep #: [id number] : 2000 Provider: Dr. Marcus Nick MD Age/Sex: 24/F Location: [facility] [place] Status: Signed Intake Vital Signs 07/10/24 08:54 09/04/24 10:04 09/18/24 09:51 Height 5 ft 4 in 5 ft 4 in 5 ft 4 in Weight: 223 lb 2 oz BMI 38.2 BP 117/79 Intake Visit Reasons: 32 WK 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 Required: No Is patient in pain?: No Allergies tree nut Allergy (Verified 09/18/24 09:54) Anaphylaxis Medications ?Medication ?Instructions ?Recorded ?Confirmed ?Type multivitamin 1 tab PO QDAY 06/12/2409/18 History Last Menstrual Period: 02/05/24 Zika: Zika virus screening: Negative : No PFSH PFSH Medical History Adopted Vaginal delivery hemorrhage Social History adopted: Yes household members: spouse and children housing: house number of children: 2 current occupational status: employed 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[employer] current occupational exposures/hazards: No pets and animals: No history of recent travel: No sexually active: Yes Smoking Status: Never smoker second hand exposure: No alcohol intake: never substance use type: does not use well-balanced diet: daily or most days caffeine: No eating out: rarely or never during the past year weight has: remained stable what type of physical activity do you participate in: none and walking frequency: daily duration: 30-45 minutes/day sangeeta/religious: Orthodoxy seatbelt use: always do you feel safe at home: Yes additional social history: : Abdirahman - Toney History 4 Elective abortions Hx Para 2 Spontaneous abortions 1 Hx # Term Pregnancies 2 Ectopic pregnancies Hx # Pregnancies Multiple births # of living children 2 Past Pregnancies Del. Date Name GA/Weeks Outcome Route Bth Weight Infant Gen Labor Lgth Anesthesia Del Locatn Provider FOB 10/27/17 Marta 40 live - full term 8lbs 6oz Female 16.5 hours epidural [facility] Dr. Rehtt Gary 12/28/19 6 03/02/21 Fern 39 live - full term 71b 12oz Female epidural [facility] Shannon Gary Delivery Date: 10/27/17 Last Updated by: Nicol Pabon lightly stained meconium; unable to deliver shoulder; 2nd degree episiotomy cut & then with maternal pushing effort the posterior shoulder delivered; uterine atony-cytotec $ metheringine in addition to pitocin; TAUS performed & gentle banjo curettage performed; cervical laceration 5 o'clock Delivery Date: 12/28/19 Last Updated by: Daylin Mcnally, SUSAN No intervention needed Delivery Date: 03/02/21 Last Updated by: Luba Vo IOL 39 wk HPI 32 WK OB Details: OSCAR VO is a 24 year old who presents for routine OB visit. OB Visit MARIA T Calculator Estimated Delivery Date Method Current WG Current Estimate 11/11/24 LMP (Certain) 32w 2d Expected Delivery Route/Plan Labor Preferences- CB/BF classes: no labor support person: Abdirahman labor intervention preferences: [] pain management options preferred: epidural if requested cut cord/dad catch: yes : yes PP control planned: discussed discussed possible routes of delivery and associated risks: [] special requests: [] Specific Issue/Plans Covid status: [] Flu vaccine: [] Tdap vaccine: declined Rhogam: na LARC form signed: yes Problem list reviewed and updated with the most current plan of care details and appropriate orders placed. Relevant counseling for the gestational age provided. Continue routine care and follow up unless otherwise noted in visit notes/problem list details Initial Weight: Not Recorded Date -?-?-?-?-?-?-?-?-?-?-?-?- EGA Weight BP Urine Prot -?-?-?-?-?-?-?-?-?-?-?-?- Glucose FHR FuHt Pres Dilation -?-?-?-?-?-?-?-?-?-?-?-?- Effaced St Visit Note 04/17/24 -?-?-?-?-?-?-?-?-?-?-?-?- 10w 2d 219 lb 2 oz 113/73 -?-?-?-?-?-?-?-?-?-?-?-?- 171 -?-?-?-?-?-?-?-?-?-?-?-?- JV- CRL consiste nt with LMP. Declines nipt. wants to do new ob labs next visit due to time restraints today. 05/15/24 -?-?-?-?-?-?-?-?-?-?-?-?- 14w 2d 218 lb 6 oz 122/80 Nega tive -?-?-?-?-?-?-?-?-?-?-?-?- Negative 154 -?-?-?-?-?-?-?-?-?-?-?-?- MH-No VB. Brief US confirm live IUP. PN labs. 06/12/24 -?-?-?-?-?-?-?-?-?-?-?-?- 18w 2d 214 lb 6 oz 110/69 Nega tive -?-?-?-?-?-?-?-?-?-?-?-?- Negative 145 -?-?-?-?-?-?-?-?-?-?-?-?- KW- no vb/maksimmpamie ng. +flutters. US scheduled 06/29. no concerns 07/10/24 -?-?-?-?-?-?-?-?-?-?-?-?- 22w 2d 211 lb 4 oz 128/84 Nega tive -?-?-?-?-?-?-?-?-?-?-?-?- Negative 150 -?-?-?-?-?-?-?-?-?-?-?-?- SM- no vb lof go od fm no reuglar ctx 08/07/24 -?-?-?-?-?-?-?-?-?-?-?--?- 26w 2d 215 lb 8 oz 124/74 Nega tive -?-?-?-?-?-?-?-?-?-?-?-?- Negative 141 26 -?-?-?-?-?-?-?-?-?-?-?-?- MH-No VB, LOF. G ocodi Fm. Larc. 28 wk labs pending. 08/22/24 -?-?-?-?-?-?-?-?-?-?-?-?- 28w 3d 217 lb 120/82 Negative -?-?-?-?-?-?-?-?-?-?-?-?- Negative 150 30 -?-?-?-?-?-?-?-?-?-?-?-?- KW- no vb/lof/ct x. fernando erazo had follow up US today. having some anxiety at night. declines Tdap vaccine. KW- no vb/lof/ctx. fernando erazo h ad follow up US today. having some anxiety at night. declines medications but did discuss counseling and stress reducing techniques she would like to try. declines Tdap vaccine. 09/04/24 -?-?-?-?-?-?-?-?-?-?-?-?- 30w 2d 219 lb 6 oz 107/71 Nega tive -?-?-?-?-?-?-?-?-?-?-?-?- Negative 128 31 -?-?-?-?-?-?-?-?-?-?-?-?- -No VB, LOF. G ood Fm. Denies concerns 09/18/24 -?-?-?-?-?-?-?-?-?-?-?-?- 32w 2d 223 lb 2 oz 117/79 Nega tive -?-?-?-?-?-?-?-?-?-?-?-?- Negative 130 33 -?-?-?-?-?-?-?-?-?-?-?-?- - no vb lof go od fm no regular ctx ACOG First Trimester First Trimester: Discussed Second Trimester Second Trimester: Signs and Symptoms of Labor, Selecting a care provider, Reproductive Life Planning & Contreception and Care Planning; Discussed Tobacco Cessation, Discussed Depression/Anxiety and Discussed Intimate Partner Violence Third Trimester Third Trimester: Pain Management Plans, Labor support person(s), Immediate Larc, Circumcision preference, Movement Monitoring, Signs and Symptoms of Preeclampsia, Infant Feeding No , [place] Education and Family Medical Leave or Disability Forms ROS Const Denies fever(s) GI Reports as per HPI and Denies abdominal pain Reports as per HPI, Denies abnormal vaginal bleeding, Denies dysuria and Denies vaginal discharge Exam Const General: healthy appearing, comfortable and no acute distress GI Inspection: normal to inspection Palpation: soft and nontender Results POC Urinalysis 2 Dip (Clinic) Office Urine Glucose Negative Last Edit by Sy Piper on 09/18/24 09:58 Office Urine Protein Negative Last Edit by Sy Piper on 09/18/24 09:58 Coding Level of Care Code OB Routine Diagnoses Echogenic focus of heart of fetus affecting antepartum care of mother, single or unspecified fetus O35.BXX0 Fetus number: single or unspecified fetus Obesity affecting in second trimester, unspecified obesity type O99.212 Obesity type affecting : unspecified obesity Trimester: second trimester History of shoulder dystocia in prior , currently O09.299 History of hemorrhage, currently O09.299 Supervision of high risk in third trimester O09.93 Trimester: third trimester 32 weeks gestation of Z3A.32 Weeks of gestation: 32 weeks Assessment and Plan Assessment and Plan (1) Echogenic focus of heart of fetus affecting antepartum care of mother: Status: Acute Qualifiers: Fetus number: single or unspecified fetus Qualified Code(s): O35.BXX0 - Maternal care for other (suspected) abnormality and damage, cardiac anomalies, not applicable or unspecified Comment: discussed and declined NIPT (2) Obesity affecting : Status: Acute Qualifiers: Obesity type affecting : unspecified obesity Trimester: second trimester Qualified Code(s): O99.212 - Obesity complicating , second trimester Comment: BMI 34.9, HgBA1C w/NOB (3) History of shoulder dystocia in prior , currently : Status: Acute Comment: 2017 8lb 6 ounces, 7 12 didn't have SD. plan IOL at 39 weeks growth US at 36 weeks (4) History of hemorrhage, currently : Status: Acute Comment: 2020 (5) Supervision of high-risk : Status: Acute Qualifiers: Trimester: third trimester Qualified Code(s): O09.93 - Supervision of high risk , unspecified, third trimester Comment: PRR, , MARIA T 11/11/24, boy Annmarie PC: Marta & Fern, : Abdirahman (6) : Status: Acute Qualifiers: Weeks of gestation: 32 weeks Qualified Code(s): Z3A.32 - 32 weeks gestation of Comment: Discussed genetic testing - undecided (carrier testing done in prior - NEG) Declines NIPT and AFP, nl anatomy Orders: Orders POC Urinalysis 2 Dip (Clinic) Today 09/18/24 1004 <Electronically signed by Liset albright MD> Date _ Liset Nick MD Cosigner Signature: Date (if applicable) CC: ~ [facility] Work Phone: Progress note Author Lali Edil [facility] Note Date/Time October 02, 2024 10:19 am [facility] [address] [place] [address], [address] [place] [address] OFFICE VISIT Date of Service: 10/02/24 MR#: [id number] Acct: [id number] Name: GILDAOSCAR NEIL Rep #: [id number] : 2000 Provider: PARUL Solo Age/Sex: 24/F Location: [facility] [place] Status: Signed Intake Vital Signs 07/10/24 08:54 09/18/24 09:51 10/02/24 10:00 Height 5 ft 4 in 5 ft 4 in 5 ft 4 in Weight: 223 lb 2 oz 225 lb BMI 38.2 38.6 BP 117/79 115/76 Intake Visit Reasons: 34 WK OB 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: 34wk 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 Required: No Is patient in pain?: No Allergies tree nut Allergy (Verified 10/02/24 09:58) Anaphylaxis Medications ?Medication ?Instructions ?Recorded ?Confirmed ?Type multivitamin 1 tab PO QDAY 03/17/25 07/07 /25 History Last Menstrual Period: 02/05/24 : No PFSH PFSH Medical History Adopted Vaginal delivery hemorrhage Social History adopted: Yes household members: spouse and children housing: house number of children: 2 current occupational status: employed 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[employer] current occupational exposures/hazards: No pets and animals: No history of recent travel: No sexually active: Yes Smoking Status: Never smoker second hand exposure: No alcohol intake: never substance use type: does not use well-balanced diet: daily or most days caffeine: No eating out: rarely or never during the past year weight has: remained stable what type of physical activity do you participate in: none and walking frequency: daily duration: 30-45 minutes/day sangeeta/religious: Orthodoxy seatbelt use: always do you feel safe at home: Yes additional social history: : Abdirahman - Toney History 4 Elective abortions Hx Para 2 Spontaneous abortions 1 Hx # Term Pregnancies 2 Ectopic pregnancies Hx # Pregnancies Multiple births # of living children 2 Past Pregnancies Del. Date Name GA/Weeks Outcome Route Bth Weight Infant Gen Labor Lgth Anesthesia Del Locatn Provider FOB 10/27/17 Marta 40 live - full term 8lbs 6oz Female 16.5 hours epidural [facility] Dr. Rhett Gary 12/28/19 6 03/02/21 Fern 39 live - full term 71b 12oz Female epidural [facility] Elisabethdalia Zarateceleste Abdirahman Delivery Date: 10/27/17 Last Updated by: Nicol Pabno lightly stained meconium; unable to deliver shoulder; 2nd degree episiotomy cut & then with maternal pushing effort the posterior shoulder delivered; uterine atony-cytotec $ metheringine in addition to pitocin; TAUS performed & gentle banjo curettage performed; cervical laceration 5 o'clock Delivery Date: 12/28/19 Last Updated by: Daylin Mcnally, RN No intervention needed Delivery Date: 03/02/21 Last Updated by: Luba Vo IOL 39 wk HPI 34 WK OB Details: OSCAR VO is a 24 year old who presents for routine OB visit. OB Visit MARIA T Calculator Estimated Delivery Date Method Current WG Current Estimate 11/11/24 LMP (Certain) 34w 2d Expected Delivery Route/Plan Labor Preferences- CB/BF classes: no labor support person: Abdirahman labor intervention preferences: [] pain management options preferred: epidural if requested cut cord/dad catch: yes : yes PP control planned: discussed discussed possible routes of delivery and associated risks: [] special requests: [] Specific Issue/Plans Covid status: [] Flu vaccine: [] Tdap vaccine: declined Rhogam: na LARC form signed: yes Problem list reviewed and updated with the most current plan of care details and appropriate orders placed. Relevant counseling for the gestational age provided. Continue routine care and follow up unless otherwise noted in visit notes/problem list details Initial Weight: Not Recorded Date -?-?-?-?-?--?-?-?-?-?-?-?- EGA Weight BP Urine Prot -?-?-?-?-?-?-?-?-?-?-?-?- Glucose FHR FuHt Pres Dilation -?-?-?-?-?-?-?-?-?-?-?-?- Effaced St Visit Note 04/17/24 -?-?-?-?-?-?-?-?-?-?-?-?- 10w 2d 219 lb 2 oz 113/73 -?-?-?-?-?-?-?-?-?-?-?-?- 171 -?-?-?-?-?-?-?-?-?-?-?-?- JV- CRL consiste nt with LMP. Declines nipt. wants to do new ob labs next visit due to time restraints today. 05/15/24 -?-?-?-?-?-?-?-?-?-?-?-?- 14w 2d 218 lb 6 oz 122/80 Nega tive -?-?-?-?-?-?-?-?-?-?-?-?- Negative 154 -?-?-?-?-?-?-?-?-?-?-?-?- MH-No VB. Brief US confirm live IUP. PN labs. 06/12/24 -?-?-?-?-?-?-?-?-?-?-?-?- 18w 2d 214 lb 6 oz 110/69 Nega tive -?-?-?-?-?-?-?-?-?-?-?-?- Negative 145 -?-?-?-?-?-?-?-?-?-?-?-?- KW- no vb/kristi ng. +flutters. US scheduled 06/29. no concerns 07/10/24 -?-?-?-?-?-?-?-?-?-?-?-?- 22w 2d 211 lb 4 oz 128/84 Nega tive -?-?-?-?-?-?-?-?-?-?-?-?- Negative 150 -?-?-?-?-?-?-?-?-?-?-?-?- SM- no vb lof go od fm no reuglar ctx 08/07/24 -?-?-?-?-?-?-?-?-?-?-?-?- 26w 2d 215 lb 8 oz 124/74 Nega tive -?-?-?-?-?-?-?-?-?-?-?-?- Negative 141 26 -?-?-?-?-?-?-?-?-?-?-?-?- MH-No VB, LOF. G ood Fm. Larc. 28 wk labs pending. 08/22/24 -?-?-?-?-?-?-?-?-?-?-?-?- 28w 3d 217 lb 120/82 Negative -?-?-?-?-?-?-?-?-?-?-?-?- Negative 150 30 -?-?-?-?-?-?--?-?-?-?-?-?- KW- no vb/lof/ct x. fernando fm had follow up US today. having some anxiety at night. declines Tdap vaccine. KW- no vb/lof/ctx. fernando fm h ad follow up US today. having some anxiety at night. declines medications but did discuss counseling and stress reducing techniques she would like to try. declines Tdap vaccine. 09/04/24 -?-?-?-?-?-?-?-?-?-?-?-?- 30w 2d 219 lb 6 oz 107/71 Nega tive -?-?-?-?-?-?-?-?-?-?-?-?- Negative 128 31 -?-?-?-?-?-?-?-?-?-?-?-?- MH-No VB, LOF. G ood Fm. Denies concerns 09/18/24 -?-?-?-?-?-?-?-?-?-?-?-?- 32w 2d 223 lb 2 oz 117/79 Nega tive -?-?-?-?-?-?-?-?-?-?-?-?- Negative 130 33 -?-?-?-?-?-?-?-?-?-?-?-?- SM- no vb lof go od fm no regular ctx 10/02/24 -?-?-?-?-?-?-?-?-?-?-?-?- 34w 2d 225 lb 115/76 Negative -?-?-?-?-?-?-?-?-?-?-?-?- Negative 130 35 -?-?-?-?-?-?-?-?-?-?-?-?- KW- no vb/lof/ct x. good fm. no concerns today. growth US for hx shoulder dystocia ACOG First Trimester First Trimester: Discussed Second Trimester Second Trimester: Signs and Symptoms of Labor, Selecting a care provider, Reproductive Life Planning & Contreception and Care Planning; Discussed Tobacco Cessation, Discussed Depression/Anxiety and Discussed Intimate Partner Violence Third Trimester Third Trimester: Pain Management Plans, Labor support person(s), Immediate Larc, Circumcision preference, Movement Monitoring, Signs and Symptoms of Preeclampsia, Infant Feeding No , [place] Education and Family Medical Leave or Disability Forms ROS Const Reports system reviewed and no additional complaints, except as documented Eyes Reports system reviewed and no additional complaints, except as documented ENT Reports system reviewed and no additional complaints, except as documented Card Reports system reviewed and no additional complaints, except as documented Resp Reports system reviewed and no additional complaints, except as documented GI Reports system reviewed and no additional complaints, except as documented, Denies nausea and Denies vomiting Reports system reviewed and no additional complaints, except as documented Musc Reports system reviewed and no additional complaints, except as documented Skin/Breast Reports system reviewed and no additional complaints, except as documented Neuro Yes system reviewed and no additional complaints, except as documented Psych Reports system reviewed and no additional complaints, except as documented Endo Reports system reviewed and no additional complaints, except as documented Michael/Lymph Reports system reviewed and no additional complaints, except as documented Aller/Immun Reports system reviewed and no additional complaints, except as documented Exam Const General: cooperative, healthy appearing and no acute distress Orientation: alert, awake and oriented x3 Neck Neck: normal visual inspection and full ROM Resp Effort & Inspection: normal respiratory effort, able to speak in complete sentences and symmetric chest movement GI Inspection: normal to inspection Palpation: soft and other Other: gravid Skin General: no rashes or lesions noted Neuro General: patient alert, patient awake and patient oriented x3 Cognition: normal cognition Speech: speech normal Gait: normal gait Motor: muscle tone normal throughout Extrem General: normal to inspection and full ROM Psych Appearance: grossly normal Mental Status: mental status grossly normal Mood: congruent mood Affect: normal affect Speech and Movement: speech and movement normal Attitude: cooperative Thought Process: normal Thought Content: normal Judgment: judgment good Results POC Urinalysis 2 Dip (Clinic) Office Urine Glucose Negative Last Edit by Qian Garland on 10/02/24 10:05 Office Urine Protein Negative Last Edit by Qian Garland on 10/02/24 10:05 Coding Level of Care Code Off vis,est,level 3 Diagnoses Echogenic focus of heart of fetus affecting antepartum care of mother, single or unspecified fetus O35.BXX0 Fetus number: single or unspecified fetus Obesity affecting in second trimester, unspecified obesity type O99.212 Obesity type affecting : unspecified obesity Trimester: second trimester History of shoulder dystocia in prior , currently O09.299 History of hemorrhage, currently O09.299 Supervision of high risk in third trimester O09.93 Trimester: third trimester 34 weeks gestation of Z3A.34 Weeks of gestation: 34 weeks Assessment and Plan Assessment and Plan (1) Echogenic focus of heart of fetus affecting antepartum care of mother: Status: Acute Qualifiers: Fetus number: single or unspecified fetus Qualified Code(s): O35.BXX0 - Maternal care for other (suspected) abnormality and damage, cardiac anomalies, not applicable or unspecified Comment: discussed and declined NIPT (2) Obesity affecting : Status: Acute Qualifiers: Obesity type affecting : unspecified obesity Trimester: second trimester Qualified Code(s): O99.212 - Obesity complicating , second trimester Comment: BMI 34.9, HgBA1C w/NOB (3) History of shoulder dystocia in prior , currently : Status: Acute Comment: 2017 8lb 6 ounces, 7 12 didn't have SD. plan IOL at 39 weeks growth US at 36 weeks (4) History of hemorrhage, currently : Status: Acute Comment: 2020 (5) Supervision of high-risk : Status: Acute Qualifiers: Trimester: third trimester Qualified Code(s): O09.93 - Supervision of high risk , unspecified, third trimester Comment: PRR, , MARIA T 11/11/24, boy Annmarie PC: Toi, : Abdirahman (6) : Status: Acute Qualifiers: Weeks of gestation: 34 weeks Qualified Code(s): Z3A.34 - 34 weeks gestation of Comment: Discussed genetic testing - undecided (carrier testing done in prior - NEG) Declines NIPT and AFP, nl anatomy Orders: Orders POC Urinalysis 2 Dip (Clinic) Today OB Limited With Biometrics Today O09.299 - Supervision of with other poor reproductive or obstetric history, unspecified trimester Plan Details Additional Comments: ACOG trimester education reviewed and updated. see problem list details for updated plan management information and see below for orders placed at this visit. [place] appropriate handout given. 10/02/24 1019 <Electronically signed by Lali downey CNM> Date _ Lali Solo CNM Cosigner Signature: Date (if applicable) CC: ~ [facility] Work Phone: Progress note Author Lali Solo [facility] Note Date/Time October 23, 2024 10:2 6am [facility] [address], [address] [place] [address] OFFICE VISIT Date of Service: 10/23/24 MR#: [id number] Acct: [id number] Name: OSCAR VO Rep #: [id number] : 2000 Provider: PARUL Solo Age/Sex: 24/F Location: [facility] [place] Status: Signed Intake Vital Signs 07/10/24 08:54 10/02/24 10:00 10/23/24 09:59 Height 5 ft 4 in 5 ft 4 in 5 ft 4 in Weight: 229 lb 6 oz BMI 39.3 BP 127/82 H Intake Visit Reasons: 37 WK OB/GBS (WAS ON VACAY) 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: 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 Is patient in pain?: No Allergies tree nut Allergy (Verified 10/23/24 09:57) Anaphylaxis Medications ?Medication ?Instructions ?Recorded ?Confirmed ?Type multivitamin 1 tab PO QDAY 06/12/2410/23 History Last Menstrual Period: 02/05/24 : No PFSH PFSH Medical History Adopted Vaginal delivery hemorrhage Social History adopted: Yes household members: spouse and children housing: house number of children: 2 current occupational status: employed 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) & [employer] current occupational exposures/hazards: No pets and animals: No history of recent travel: No sexually active: Yes Smoking Status: Never smoker second hand exposure: No alcohol intake: never substance use type: does not use well-balanced diet: daily or most days caffeine: No eating out: rarely or never during the past year weight has: remained stable what type of physical activity do you participate in: none and walking frequency: daily duration: 30-45 minutes/day sangeeta/religious: Orthodoxy seatbelt use: always do you feel safe at home: Yes additional social history: : Abdirahman - Toney History 4 Elective abortions Hx Para 2 Spontaneous abortions 1 Hx # Term Pregnancies 2 Ectopic pregnancies Hx # Pregnancies Multiple births # of living children 2 Past Pregnancies Del. Date Name GA/Weeks Outcome Route Bth Weight Gen Labor Lgth Anesthesia Del Locatn Provider FOB 10/27/17 Marta 40 live - full term 8lbs 6oz Female 16.5 hours epidural [facility] Dr. Rhett Gary 12/28/19 6 03/02/21 Fern 39 live - full term 71b 12oz Female epidural [facility] Shannon Bruno Abdirahman Delivery Date: 10/27/17 Last Updated by: Nicol Pabon lightly stained meconium; unable to deliver shoulder; 2nd degree episiotomy cut & then with maternal pushing effort the posterior shoulder delivered; uterine atony-cytotec $ metheringine in addition to pitocin; TAUS performed & gentle banjo curettage performed; cervical laceration 5 o'clock Delivery Date: 12/28/19 Last Updated by: Daylin Mcnally, SUSAN No intervention needed Delivery Date: 03/02/21 Last Updated by: Luba Vo IOL 39 wk HPI 37 WK OB/GBS (WAS ON VACAY) Details: OSCAR VO is a 24 year old who presents for routine OB visit. OB Visit MARIA T Calculator Estimated Delivery Date Method Current WG Current Estimate 11/11/24 LMP (Certain) 37w 2d Expected Delivery Route/Plan Labor Preferences- CB/BF classes: no labor support person: Abdirahman labor intervention preferences: [] pain management options preferred: epidural if requested cut cord/dad catch: yes : yes PP control planned: discussed discussed possible routes of delivery and associated risks: [] special requests: [] Specific Issue/Plans Covid status: [] Flu vaccine: [] Tdap vaccine: declined Rhogam: na LARC form signed: yes Problem list reviewed and updated with the most current plan of care details and appropriate orders placed. Relevant counseling for the gestational age provided. Continue routine care and follow up unless otherwise noted in visit notes/problem list details Initial Weight: Not Recorded Date -?-?-?-?-?-?-?-?-?-?-?-?- EGA Weight BP Urine Prot -?-?-?-?-?-?-?-?-?-?-?-?- Glucose FHR FuHt Pres Dilation -?-?-?-?-?-?-?-?-?-?-?-?- Effaced St Visit Note 04/17/24 -?-?-?-?-?-?-?-?-?-?-?-?- 10w 2d 219 lb 2 oz 113/73 -?-?-?-?-?-?-?-?-?-?-?-?- 171 -?-?-?-?-?-?-?-?-?-?-?-?- JV- CRL consiste nt with LMP. Declines nipt. wants to do new ob labs next visit due to time restraints today. 05/15/24 -?-?-?-?-?-?-?-?-?-?-?-?- 14w 2d 218 lb 6 oz 122/80 Nega tive -?-?-?-?-?-?-?-?-?-?-?-?- Negative 154 -?-?-?-?-?-?-?-?-?-?-?-?- MH-No VB. Brief US confirm live IUP. PN labs. 06/12/24 -?-?-?-?-?-?-?-?-?-?-?-?- 18w 2d 214 lb 6 oz 110/69 Nega tive -?-?-?-?-?-?-?-?-?-?-?-?- Negative 145 -?-?-?-?-?-?-?-?-?-?-?-?- KW- no vb/crampi ng. +flutters. US scheduled 06/29. no concerns 07/10/24 -?-?-?-?-?-?-?-?-?-?-?-?- 22w 2d 211 lb 4 oz 128/84 Nega tive -?-?-?-?-?-?-?-?-?-?-?-?- Negative 150 -?-?-?-?-?-?-?-?-?-?-?-?- SM- no vb lof go od fm no reuglar ctx 08/07/24 -?-?-?-?-?-?-?-?-?-?-?-?- 26w 2d 215 lb 8 oz 124/74 Nega tive -?-?-?-?-?-?-?-?-?-?-?-?- Negative 141 26 -?-?-?-?-?-?-?-?-?-?-?-?- -No VB, LOF. G ood Fm. Larc. 28 wk labs pending. 08/22/24 -?-?-?-?-?-?-?-?-?-?-?-?- 28w 3d 217 lb 120/82 Negative -?-?-?-?-?-?-?-?-?-?-?-?- Negative 150 30 -?-?-?-?-?-?-?-?-?-?-?-?- KW- no vb/lof/ct x. fernando erazo had follow up US today. having some anxiety at night. declines Tdap vaccine. KW- no vb/lof/ctx. fernando erazo h ad follow up US today. having some anxiety at night. declines medications but did discuss counseling and stress reducing techniques she would like to try. declines Tdap vaccine. 09/04/24 -?-?-?-?-?-?-?-?-?-?-?--?- 30w 2d 219 lb 6 oz 107/71 Nega tive -?-?-?-?-?-?-?-?-?-?-?-?- Negative 128 31 -?-?-?-?-?-?-?-?-?-?-?-?- -No VB, LOF. G ood Fm. Denies concerns 09/18/24 -?-?-?-?-?-?-?-?-?-?-?-?- 32w 2d 223 lb 2 oz 117/79 Nega tive -?-?-?-?-?-?-?-?-?-?-?-?- Negative 130 33 -?-?-?-?-?-?--?-?-?-?-?-?- SM- no vb lof go od fm no regular ctx 10/02/24 -?-?-?-?-?-?-?-?-?-?-?-?- 34w 2d 225 lb 115/76 Negative -?-?-?-?-?-?-?-?-?-?-?-?- Negative 130 35 -?-?-?-?-?-?-?-?-?-?-?-?- KW- no vb/lof/ct x. good fm. no concerns today. growth US for hx shoulder dystocia 10/23/24 -?-?-?-?-?-?-?-?-?-?-?-?- 37w 2d 229 lb 6 oz 127/82 Nega tive -?-?-?-?-?-?-?-?-?-?-?-?- Negative 135 38 Cephalic 0 .5 -?-?-?-?-?-?-?-?-?-?-?-?- 40 -2 KW- no vb/ lof/ctx. good fm. GBS today KW- no vb/lof/ctx. good fm. GBS today. growth US reviewed. EFW at 40 weeks will be 3859 grams. had SD with 8.6 baby. at 40 weeks will be about the same- discussed 39 week IOL. KW- no vb/lof/ctx. good fm. GBS today. growth US reviewed. EFW at 40 weeks will be 3859 grams. had SD with 8.6 baby. at 40 weeks will be about the same- discussed 39 week IOL- had last and is desiring again ACOG First Trimester First Trimester: Discussed Second Trimester Second Trimester: Signs and Symptoms of Labor, Selecting a care provider, Reproductive Life Planning & Contreception and Care Planning; Discussed Tobacco Cessation, Discussed Depression/Anxiety and Discussed Intimate Partner Violence Third Trimester Third Trimester: Pain Management Plans, Labor support person(s), Immediate Larc, Circumcision preference, Movement Monitoring, Signs and Symptoms of Preeclampsia, Feeding No , [place] Education and Family Medical Leave or Disability Forms ROS Const Reports system reviewed and no additional complaints, except as documented Eyes Reports system reviewed and no additional complaints, except as documented ENT Reports system reviewed and no additional complaints, except as documented Card Reports system reviewed and no additional complaints, except as documented Resp Reports system reviewed and no additional complaints, except as documented GI Reports system reviewed and no additional complaints, except as documented, Denies nausea and Denies vomiting Reports system reviewed and no additional complaints, except as documented Musc Reports system reviewed and no additional complaints, except as documented Skin/Breast Reports system reviewed and no additional complaints, except as documented Neuro Yes system reviewed and no additional complaints, except as documented Psych Reports system reviewed and no additional complaints, except as documented Endo Reports system reviewed and no additional complaints, except as documented Michael/Lymph Reports system reviewed and no additional complaints, except as documented Aller/Immun Reports system reviewed and no additional complaints, except as documented Exam Const General: cooperative, healthy appearing and no acute distress Orientation: alert, awake and oriented x3 Neck Neck: normal visual inspection and full ROM Resp Effort & Inspection: normal respiratory effort, able to speak in complete sentences and symmetric chest movement GI Inspection: normal to inspection Palpation: soft and other Other: gravid Skin General: no rashes or lesions noted Neuro General: patient alert, patient awake and patient oriented x3 Cognition: normal cognition Speech: speech normal Gait: normal gait Motor: muscle tone normal throughout Extrem General: normal to inspection and full ROM Psych Appearance: grossly normal Mental Status: mental status grossly normal Mood: congruent mood Affect: normal affect Speech and Movement: speech and movement normal Attitude: cooperative Thought Process: normal Thought Content: normal Judgment: judgment good Results POC Urinalysis 2 Dip (Clinic) Office Urine Glucose Negative Last Edit by Qian Garland on 10/23/24 10:07 Office Urine Protein Negative Last Edit by Qian Garland on 10/23/24 10:07 Coding Level of Care Code Off vis,est,level 3 Diagnoses Echogenic focus of heart of fetus affecting antepartum care of mother, single or unspecified fetus O35.BXX0 Fetus number: single or unspecified fetus Obesity affecting in second trimester, unspecified obesity type O99.212 Obesity type affecting : unspecified obesity Trimester: second trimester History of shoulder dystocia in prior , currently O09.299 History of hemorrhage, currently O09.299 Supervision of high risk in third trimester O09.93 Trimester: third trimester 37 weeks gestation of Z3A.37 Weeks of gestation: 37 weeks Assessment and Plan Assessment and Plan (1) Echogenic focus of heart of fetus affecting antepartum care of mother: Status: Acute Qualifiers: Fetus number: single or unspecified fetus Qualified Code(s): O35.BXX0 - Maternal care for other (suspected) abnormality and damage, cardiac anomalies, not applicable or unspecified Comment: discussed and declined NIPT (2) Obesity affecting : Status: Acute Qualifiers: Obesity type affecting : unspecified obesity Trimester: second trimester Qualified Code(s): O99.212 - Obesity complicating , second trimester Comment: BMI 34.9, HgBA1C w/NOB (3) History of shoulder dystocia in prior , currently : Status: Acute Comment: 2017 8lb 6 ounces, 7 12 didn't have SD. plan IOL at 39 weeks growth US at 36 weeks (68% EFW at 39 weeks 3609 grams about 7.9 lbs) (4) History of hemorrhage, currently : Status: Acute Comment: 2020 (5) Supervision of high-risk : Status: Acute Qualifiers: Trimester: third trimester Qualified Code(s): O09.93 - Supervision of high risk , unspecified, third trimester Comment: PRR, , MARIA T 11/11/24, boy Annmarie PC: Toi, : Abdirahman (6) : Status: Acute Qualifiers: Weeks of gestation: 37 weeks Qualified Code(s): Z3A.37 - 37 weeks gestation of Comment: Discussed genetic testing - undecided (carrier testing done in prior - NEG) Declines NIPT and AFP, nl anatomy Orders: Orders POC Urinalysis 2 Dip (Clinic) Today Culture, Group B Streptococcus Today O09.93 - Supervision of high risk , unspecified, third trimester, Z3A.37 - 37 weeks gestation of Plan Details Additional Comments: ACOG trimester education reviewed and updated. see problem list details for updated plan management information and see below for orders placed at this visit. [place] appropriate handout given. 10/23/24 1026 <Electronically signed by Lali downey CNM> Date _ Lali Cox Signature: Date (if applicable) CC: ~ [facility] Work Phone: Reason for referral (narrative)No reason for referral information availableWPro[facility] Work Phone: Summary Purpose Family History No Family History Records FoundNo Family History Records FoundNo Family History Records Found Advance Directives No Advanced Directives Records FoundNo Advanced Directives Records FoundNo Advanced Directives Records Found 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 and Reason for Visit 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 Admit Date New OB, LMP 11, MARIA T 11/11/24 April 172024 2:58pm 14wk OB May 15, 2024 3:43pm 18 wk ob June 12, 2024 3:1 4pm 22 wk ob July 10, 2024 8:4 9am 26 wk ob/glucose August 07, 2024 9:43a m Reason for Visit Admit Date History of hemorrhage, bucky tlzee April 17, 2024 2:58pm History of shoulder dystocia in prior , currently April 17, 2024 2:58pm Obesity affecting March 2:58pm April 17, 2024 2 :58pm Supervision of high-risk Janua 2024 2:58pm Adopted April 17, 2024 2 :58pm History of GBS (group B stre ptococcus) UTI, currently April 17, 2024 2:58pm History of miscarriage, currently pregna nt April 17, 2024 2:58pm History of hemorrhage, bucky tly May 15, 2024 3:43pm History of shoulder dystocia in prior , currently May 15, 2024 3:43pm Obesity affecting April 3:43pm May 15, 2024 3:43pm Supervision of high-risk Febru paula 2024 3:43pm Adopted May 15, 2024 3:43pm History of miscarriage, currently pregna nt May 15, 2024 3:43pm History of hemorrhage, bucky cote June 12, 2024 3:14pm History of shoulder dystocia in prior , currently June 12, 2024 3:14pm Obesity affecting June 12, 2024 3:14pm June 12, 2024 3:1 4pm Supervision of high-risk June 12, 2024 3:14pm Adopted June 12, 2024 3:1 4pm History of miscarriage, currently pregna nt June 12, 2024 3:14pm Echogenic focus of heart of fetus affecting antepartum care of mother July 10, 2024 8:49am History of hemorrhage, bucky cote July 10, 2024 8:49am History of shoulder dystocia in prior , currently July 10, 2024 8:49am Low lying placenta, antepartum June 8:49am Obesity affecting July 10, 2024 8:49am July 10, 2024 8:4 9am Supervision of high-risk July 10, 2024 8:49am Echogenic focus of heart of fetus affecting antepartum care of mother August 07, 2024 9:43am History of hemorrhage, bucky cote August 07, 2024 9:43am History of shoulder dystocia in prior , currently August 07, 2024 9:43am Low lying placenta, antepartum August 07, 2024 9:43am Obesity affecting August 07 9:43am August 07, 2024 9:43a m Supervision of high-risk July 272024 9:43am 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 Admit Date 14wk OB May 15, 2024 3:43pm 18 wk ob June 12, 2024 3:1 4pm 22 wk ob July 10, 2024 8:4 9am 26 wk ob/glucose August 07, 2024 9:43a m 28 wk ob August 22, 2024 10:45 am Reason for Visit Admit Date History of hemorrhage, bucky cote May 15, 2024 3:43pm History of shoulder dystocia in prior , currently May 15, 2024 3:43pm Obesity affecting April 3:43pm May 15, 2024 3:43pm Supervision of high-risk Febru paula2024 3:43pm Adopted May 15, 2024 3:43pm History of miscarriage, currently pregna nt May 15, 2024 3:43pm History of hemorrhage, curren tly June 12, 2024 3:14pm History of shoulder dystocia in prior , currently June 12, 2024 3:14pm Obesity affecting June 12, 2024 3:14pm June 12, 2024 3:1 4pm Supervision of high-risk June 12, 2024 3:14pm Adopted June 12, 2024 3:1 4pm History of miscarriage, currently pregna nt June 12, 2024 3:14pm Echogenic focus of heart of fetus affecting antepartum care of mother July 10, 2024 8:49am History of hemorrhage, curren tly July 10, 2024 8:49am History of shoulder dystocia in prior , currently July 10, 2024 8:49am Low lying placenta, antepartum June 8:49am Obesity affecting July 10, 2024 8:49am July 10, 2024 8:4 9am Supervision of high-risk July 10, 2024 8:49am Echogenic focus of heart of fetus affecting antepartum care of mother August 07, 2024 9:43am History of hemorrhage, curren tly August 07, 2024 9:43am History of shoulder dystocia in prior , currently August 07, 2024 9:43am Low lying placenta, antepartum August 07, 2024 9:43am Obesity affecting August 07 9:43am August 07, 2024 9:43a m Supervision of high-risk July 272024 9:43am Echogenic focus of heart of fetus affecting antepartum care of mother August 22, 2024 10:45am History of hemorrhage, curren tly August 22, 2024 10:45am History of shoulder dystocia in prior , currently August 22, 2024 10:45am Low lying placenta, antepartum August 22, 2024 10:45am Obesity affecting August 22 10:45am August 22, 2024 10:45 am Supervision of high-risk July 282024 10:45am 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 Admit Date 14wk OB May 15, 2024 3:43pm 18 wk ob June 12, 2024 3:1 4pm 22 wk ob July 10, 2024 8:4 9am 26 wk ob/glucose August 07, 2024 9:43a m 28 wk ob August 22, 2024 10:45 am 30 WK OB September 04, 2024 10:00 am Reason for Visit Admit Date History of hemorrhage, bucky cote May 15, 2024 3:43pm History of shoulder dystocia in prior , currently May 15, 2024 3:43pm Obesity affecting April 3:43pm May 15, 2024 3:43pm Supervision of high-risk Febru paula 2024 3:43pm Adopted May 15, 2024 3:43pm History of miscarriage, currently pregna nt May 15, 2024 3:43pm History of hemorrhage, bucky cote June 12, 2024 3:14pm History of shoulder dystocia in prior , currently June 12, 2024 3:14pm Obesity affecting June 12, 2024 3:14pm June 12, 2024 3:1 4pm Supervision of high-risk June 12, 2024 3:14pm Adopted June 12, 2024 3:1 4pm History of miscarriage, currently pregna nt June 12, 2024 3:14pm Echogenic focus of heart of fetus affecting antepartum care of mother July 10, 2024 8:49am History of hemorrhage, bucky tly July 10, 2024 8:49am History of shoulder dystocia in prior , currently July 10, 2024 8:49am Obesity affecting July 10, 2024 8:49am July 10, 2024 8:4 9am Supervision of high-risk July 10, 2024 8:49am Low lying placenta, antepartum June 8:49am Echogenic focus of heart of fetus affecting antepartum care of mother August 07, 2024 9:43am History of hemorrhage, bucky cote August 07, 2024 9:43am History of shoulder dystocia in prior , currently August 07, 2024 9:43am Obesity affecting August 07 9:43am August 07, 2024 9:43a m Supervision of high-risk July 272024 9:43am Low lying placenta, antepartum August 07, 2024 9:43am Echogenic focus of heart of fetus affecting antepartum care of mother August 22, 2024 10:45am History of hemorrhage, bucky cote August 22, 2024 10:45am History of shoulder dystocia in prior , currently August 22, 2024 10:45am Obesity affecting August 22 10:45am August 22, 2024 10:45 am Supervision of high-risk July 282024 10:45am Low lying placenta, antepartum August 22, 2024 10:45am Echogenic focus of heart of fetus affecting antepartum care of mother September 04, 2024 10:00am History of hemorrhage, bucky cote September 04, 2024 10:00am History of shoulder dystocia in prior , currently September 04, 2024 10:00am Obesity affecting September 04 10:00am September 04, 2024 10:00 am Supervision of high-risk September 04, 2024 10:00am 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 Admit Date 18 wk ob June 12, 2024 3:1 4pm 22 wk ob July 10, 2024 8:4 9am 26 wk ob/glucose August 07, 2024 9:43a m 28 wk ob August 22, 2024 10:45 am 30 WK OB September 04, 2024 10:00 am 32 WK OB September 18, 2024 9:47 am Reason for Visit Admit Date History of hemorrhage, bucky cote June 12, 2024 3:14pm History of shoulder dystocia in prior , currently June 12, 2024 3:14pm Obesity affecting June 12, 2024 3:14pm June 12, 2024 3:1 4pm Supervision of high-risk June 12, 2024 3:14pm Adopted June 12, 2024 3:1 4pm History of miscarriage, currently pregna nt June 12, 2024 3:14pm Echogenic focus of heart of fetus affecting antepartum care of mother July 10, 2024 8:49am History of hemorrhage, bucky tly July 10, 2024 8:49am History of shoulder dystocia in prior , currently July 10, 2024 8:49am Obesity affecting July 10, 2024 8:49am July 10, 2024 8:4 9am Supervision of high-risk July 10, 2024 8:49am Low lying placenta, antepartum June 8:49am Echogenic focus of heart of fetus affecting antepartum care of mother August 07, 2024 9:43am History of hemorrhage, bucky tly August 07, 2024 9:43am History of shoulder dystocia in prior , currently August 07, 2024 9:43am Obesity affecting August 07 9:43am August 07, 2024 9:43a m Supervision of high-risk July 272024 9:43am Low lying placenta, antepartum August 07, 2024 9:43am Echogenic focus of heart of fetus affecting antepartum care of mother August 22, 2024 10:45am History of hemorrhage, bucky cote August 22, 2024 10:45am History of shoulder dystocia in prior , currently August 22, 2024 10:45am Obesity affecting August 22 10:45am August 22, 2024 10:45 am Supervision of high-risk July 282024 10:45am Low lying placenta, antepartum August 22, 2024 10:45am Echogenic focus of heart of fetus affecting antepartum care of mother September 04, 2024 10:00am History of hemorrhage, bucky tly September 04, 2024 10:00am History of shoulder dystocia in prior , currently September 04, 2024 10:00am Obesity affecting September 04 10:00am September 04, 2024 10:00 am Supervision of high-risk September 04, 2024 10:00am Echogenic focus of heart of fetus affecting antepartum care of mother September 18, 2024 9:47am History of hemorrhage, bucky cote September 18, 2024 9:47am History of shoulder dystocia in prior , currently September 18, 2024 9:47am Obesity affecting September 18, 025 9:47am September 18, 2024 9:47 am Supervision of high-risk September 18, 2024 9:47am 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 Admit Date 18 wk ob June 12, 2024 3:1 4pm 22 wk ob July 10, 2024 8:4 9am 26 wk ob/glucose August 07, 2024 9:43a m 28 wk ob August 22, 2024 10:45 am 30 WK OB September 04, 2024 10:00 am 32 WK OB September 18, 2024 9:47 am 34 WK OB October 02, 2024 9:56a m Reason for Visit Admit Date History of hemorrhage, bucky cote June 12, 2024 3:14pm History of shoulder dystocia in prior , currently June 12, 2024 3:14pm Obesity affecting June 12, 2024 3:14pm June 12, 2024 3:1 4pm Supervision of high-risk June 12, 2024 3:14pm Adopted June 12, 2024 3:1 4pm History of miscarriage, currently pregna nt June 12, 2024 3:14pm Echogenic focus of heart of fetus affecting antepartum care of mother July 10, 2024 8:49am History of hemorrhage, bucky cote July 10, 2024 8:49am History of shoulder dystocia in prior , currently July 10, 2024 8:49am Obesity affecting July 10, 2024 8:49am July 10, 2024 8:4 9am Supervision of high-risk July 10, 2024 8:49am Low lying placenta, antepartum June 8:49am Echogenic focus of heart of fetus affecting antepartum care of mother August 07, 2024 9:43am History of hemorrhage, bucky cote August 07, 2024 9:43am History of shoulder dystocia in prior , currently August 07, 2024 9:43am Obesity affecting August 07 9:43am August 07, 2024 9:43a m Supervision of high-risk July 272024 9:43am Low lying placenta, antepartum August 07, 2024 9:43am Echogenic focus of heart of fetus affecting antepartum care of mother August 22, 2024 10:45am History of hemorrhage, bucky tly August 22, 2024 10:45am History of shoulder dystocia in prior , currently August 22, 2024 10:45am Obesity affecting August 22 10:45am August 22, 2024 10:45 am Supervision of high-risk July 282024 10:45am Low lying placenta, antepartum August 22, 2024 10:45am Echogenic focus of heart of fetus affecting antepartum care of mother September 04, 2024 10:00am History of hemorrhage, bucky tly September 04, 2024 10:00am History of shoulder dystocia in prior , currently September 04, 2024 10:00am Obesity affecting September 04 10:00am September 04, 2024 10:00 am Supervision of high-risk September 04, 2024 10:00am Echogenic focus of heart of fetus affecting antepartum care of mother September 18, 2024 9:47am History of hemorrhage, bucky tly September 18, 2024 9:47am History of shoulder dystocia in prior , currently September 18, 2024 9:47am Obesity affecting September 18 9:47am September 18, 2024 9:47 am Supervision of high-risk September 18, 2024 9:47am Echogenic focus of heart of fetus affecting antepartum care of mother October 02, 2024 9:56am History of hemorrhage, bucky tly October 02, 2024 9:56am History of shoulder dystocia in prior , currently October 02, 2024 9:56am Obesity affecting October 02 9:56am October 02, 2024 9:56a m Supervision of high-risk October 02, 2024 9:56am 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 Admit Date 22 wk ob July 10, 2024 8:4 9am 26 wk ob/glucose August 07, 2024 9:43a m 28 wk ob August 22, 2024 10:45 am 30 WK OB September 04, 2024 10:00 am 32 WK OB September 18, 2024 9:47 am 34 WK OB October 02, 2024 9:56a m HX SHOULDER DYSTOCIA October 12, 2024 5:4 2pm Reason for Visit Admit Date Echogenic focus of heart of fetus affecting antepartum care of mother July 10, 2024 8:49am History of hemorrhage, curren tly July 10, 2024 8:49am History of shoulder dystocia in prior , currently July 10, 2024 8:49am Obesity affecting July 10, 2024 8:49am July 10, 2024 8:4 9am Supervision of high-risk July 10, 2024 8:49am Low lying placenta, antepartum June 8:49am Echogenic focus of heart of fetus affecting antepartum care of mother August 07, 2024 9:43am History of hemorrhage, curren tly August 07, 2024 9:43am History of shoulder dystocia in prior , currently August 07, 2024 9:43am Obesity affecting August 07 9:43am August 07, 2024 9:43a m Supervision of high-risk July 272024 9:43am Low lying placenta, antepartum August 07, 2024 9:43am Echogenic focus of heart of fetus affecting antepartum care of mother August 22, 2024 10:45am History of hemorrhage, curren tly August 22, 2024 10:45am History of shoulder dystocia in prior , currently August 22, 2024 10:45am Obesity affecting August 22 10:45am August 22, 2024 10:45 am Supervision of high-risk July 282024 10:45am Low lying placenta, antepartum August 22, 2024 10:45am Echogenic focus of heart of fetus affecting antepartum care of mother September 04, 2024 10:00am History of hemorrhage, curren tly September 04, 2024 10:00am History of shoulder dystocia in prior , currently September 04, 2024 10:00am Obesity affecting September 04 10:00am September 04, 2024 10:00 am Supervision of high-risk September 04, 2024 10:00am Echogenic focus of heart of fetus affecting antepartum care of mother September 18, 2024 9:47am History of hemorrhage, minoren tly September 18, 2024 9:47am History of shoulder dystocia in prior , currently September 18, 2024 9:47am Obesity affecting September 18, 025 9:47am September 18, 2024 9:47 am Supervision of high-risk September 18, 2024 9:47am Echogenic focus of heart of fetus affecting antepartum care of mother October 02, 2024 9:56am History of hemorrhage, bucky tly October 02, 2024 9:56am History of shoulder dystocia in prior , currently October 02, 2024 9:56am Obesity affecting October 02 9:56am October 02, 2024 9:56a m Supervision of high-risk October 02, 2024 9:56am 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 Admit Date 22 wk ob July 10, 2024 8:4 9am 26 wk ob/glucose August 07, 2024 9:43a m 28 wk ob August 22, 2024 10:45 am 30 WK OB September 04, 2024 10:00 am 32 WK OB September 18, 2024 9:47 am 34 WK OB October 02, 2024 9:56a m HX SHOULDER DYSTOCIA October 12, 2024 5:4 2pm 37 WK OB/GBS (WAS ON VACAY) October 23, 025 9:56am Reason for Visit Admit Date Echogenic focus of heart of fetus affecting antepartum care of mother July 10, 2024 8:49am History of hemorrhage, minoren tly July 10, 2024 8:49am History of shoulder dystocia in prior , currently July 10, 2024 8:49am Obesity affecting July 10, 2024 8:49am July 10, 2024 8:4 9am Supervision of high-risk July 10, 2024 8:49am Low lying placenta, antepartum June 8:49am Echogenic focus of heart of fetus affecting antepartum care of mother August 07, 2024 9:43am History of hemorrhage, curren tly August 07, 2024 9:43am History of shoulder dystocia in prior , currently August 07, 2024 9:43am Obesity affecting August 07 9:43am August 07, 2024 9:43a m Supervision of high-risk July 272024 9:43am Low lying placenta, antepartum August 07, 2024 9:43am Echogenic focus of heart of fetus affecting antepartum care of mother August 22, 2024 10:45am History of hemorrhage, curren tly August 22, 2024 10:45am History of shoulder dystocia in prior , currently August 22, 2024 10:45am Obesity affecting August 22 10:45am August 22, 2024 10:45 am Supervision of high-risk July 282024 10:45am Low lying placenta, antepartum August 22, 2024 10:45am Echogenic focus of heart of fetus affecting antepartum care of mother September 04, 2024 10:00am History of hemorrhage, curren tly September 04, 2024 10:00am History of shoulder dystocia in prior , currently September 04, 2024 10:00am Obesity affecting September 04 10:00am September 04, 2024 10:00 am Supervision of high-risk September 04, 2024 10:00am Echogenic focus of heart of fetus affecting antepartum care of mother September 18, 2024 9:47am History of hemorrhage, curren tly September 18, 2024 9:47am History of shoulder dystocia in prior , currently September 18, 2024 9:47am Obesity affecting September 18 9:47am September 18, 2024 9:47 am Supervision of high-risk September 18, 2024 9:47am Echogenic focus of heart of fetus affecting antepartum care of mother October 02, 2024 9:56am History of hemorrhage, curren tly October 02, 2024 9:56am History of shoulder dystocia in prior , currently October 02, 2024 9:56am Obesity affecting October 02 9:56am October 02, 2024 9:56a m Supervision of high-risk October 02, 2024 9:56am Echogenic focus of heart of fetus affecting antepartum care of mother October 23, 2024 9:56am History of hemorrhage, curren tly October 23, 2024 9:56am History of shoulder dystocia in prior , currently October 23, 2024 9:56am Obesity affecting October 23, 025 9:56am October 23, 2024 9:56 am Supervision of high-risk October 23, 2024 9:56am 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 Admit Date 22 wk ob July 10, 2024 8:4 9am 26 wk ob/glucose August 07, 2024 9:43a m 28 wk ob August 22, 2024 10:45 am 30 WK OB September 04, 2024 10:00 am 32 WK OB September 18, 2024 9:47 am 34 WK OB October 02, 2024 9:56a m HX SHOULDER DYSTOCIA October 12, 2024 5:4 2pm 37 WK OB/GBS (WAS ON VACAY) October 23, 025 9:56am 38 WK OB October 31, 2024 9:3 6am Reason for Visit Admit Date Echogenic focus of heart of fetus affecting antepartum care of mother July 10, 2024 8:49am History of hemorrhage, bucky tly July 10, 2024 8:49am History of shoulder dystocia in prior , currently July 10, 2024 8:49am Obesity affecting July 10, 2024 8:49am July 10, 2024 8:4 9am Supervision of high-risk July 10, 2024 8:49am Low lying placenta, antepartum June 8:49am Echogenic focus of heart of fetus affecting antepartum care of mother August 07, 2024 9:43am History of hemorrhage, minoren tly August 07, 2024 9:43am History of shoulder dystocia in prior , currently August 07, 2024 9:43am Obesity affecting August 07 9:43am August 07, 2024 9:43a m Supervision of high-risk July 272024 9:43am Low lying placenta, antepartum August 07, 2024 9:43am Echogenic focus of heart of fetus affecting antepartum care of mother August 22, 2024 10:45am History of hemorrhage, bucky tly August 22, 2024 10:45am History of shoulder dystocia in prior , currently August 22, 2024 10:45am Obesity affecting August 22 10:45am August 22, 2024 10:45 am Supervision of high-risk July 282024 10:45am Low lying placenta, antepartum August 22, 2024 10:45am Echogenic focus of heart of fetus affecting antepartum care of mother September 04, 2024 10:00am History of hemorrhage, bucky tly September 04, 2024 10:00am History of shoulder dystocia in prior , currently September 04, 2024 10:00am Obesity affecting September 04 10:00am September 04, 2024 10:00 am Supervision of high-risk September 04, 2024 10:00am Echogenic focus of heart of fetus affecting antepartum care of mother September 18, 2024 9:47am History of hemorrhage, bucky tly September 18, 2024 9:47am History of shoulder dystocia in prior , currently September 18, 2024 9:47am Obesity affecting September 18 9:47am September 18, 2024 9:47 am Supervision of high-risk September 18, 2024 9:47am Echogenic focus of heart of fetus affecting antepartum care of mother October 02, 2024 9:56am History of hemorrhage, curren tly October 02, 2024 9:56am History of shoulder dystocia in prior , currently October 02, 2024 9:56am Obesity affecting October 02 9:56am October 02, 2024 9:56a m Supervision of high-risk October 02, 2024 9:56am Echogenic focus of heart of fetus affecting antepartum care of mother October 23, 2024 9:56am History of hemorrhage, bucky cote October 23, 2024 9:56am History of shoulder dystocia in prior , currently October 23, 2024 9:56am Obesity affecting October 23, 025 9:56am October 23, 2024 9:56 am Supervision of high-risk October 23, 2024 9:56am Echogenic focus of heart of fetus affecting antepartum care of mother October 31, 2024 9:36am History of hemorrhage, bucky tly October 31, 2024 9:36am History of shoulder dystocia in prior , currently October 31, 2024 9:36am Obesity affecting October 31, 2024 9:36am October 31, 2024 9:3 6am Supervision of high-risk Augus 2024 9:36am Additional Source Comments INFORMATION SOURCE (unrecogn ized section and content) DATE CREATED AUTHOR 09/12/2019 [facility] DATE CREATED AUTHOR AUTHOR'S ORGANIZ ATION 08/25/2024 [facility] DATE CREATED AUTHOR AUTHOR'S ORGANIZ ATION 11/06/2024 [facility] Care Teams (unrecognized sec tion and content) Team Status: Active Member Role Status Dates Dr. Veda Mclaughlin MD Family Provider Active No Primary Care Physician Primary Care Provider Active Team Status: Inactive Member Role Status Dates No Primary Care Physician Primary Care Provider Active Start: April 17, 2024 End: April 17, 2024 No Primary Care Physician Referring Provider Active Start: April 17, 2024 End: April 17, 2024 Dr. Suyapa Fabian DO Attending Provider Activ e Start: April 17, 2024 End: April 17, 2024 Team Status: Inactive Member Role Status Dates No Primary Care Physician Primary Care Provider Active Start: April 17, 2024 End: April 17, 2024 Dr. Suyapa Fabian DO Attending Provider Activ e Start: April 17, 2024 End: April 17, 2024 Dr. Suyapa Fabian DO Referring Provider Activ e Start: April 17, 2024 End: April 17, 2024 Team Status: Inactive Member Role Status Dates No Primary Care Physician Primary Care Provider Active Start: May 15, 2024 End: May 15, 2024 No Primary Care Physician Referring Provider Active Start: May 15, 2024 End: May 15, 2024 Sy Nina [employer], [employer]-C Attending Provider Active Start: May 15, 2024 End: May 15, 2024 Team Status: Inactive Member Role Status Dates No Primary Care Physician Primary Care Provider Active Start: May 15, 2024 End: May 15, 2024 Sy Nina [employer], [employer]-C Attending Provider Active Start: May 15, 2024 End: May 15, 2024 Sy Nina [employer], [employer]-C Referring Provider Active Start: May 15, 2024 End: May 15, 2024 Team Status: Inactive Member Role Status Dates No Primary Care Physician Primary Care Provider Active Start: June 12, 2024 End: June 12, 2024 No Primary Care Physician Referring Provider Active Start: June 12, 2024 End: June 12, 2024 Lali Solo CNM Attending Provider Active S tart: June 12, 2024 End: June 12, 2024 Team Status: Inactive Member Role Status Dates No Primary Care Physician Primary Care Provider Active Start: July 10, 2024 End: July 10, 2024 No Primary Care Physician Referring Provider Active Start: July 10, 2024 End: July 10, 2024 Dr. Liset Nick MD Attending Provider Active Start: July 10, 2024 End: July 10, 2024 Team Status: Inactive Member Role Status Dates No Primary Care Physician Primary Care Provider Active Start: August 07, 2024 End: August 07, 2024 No Primary Care Physician Referring Provider Active Start: August 07, 2024 End: August 07, 2024 Sy Nina NP, [employer]-C Attending Provider Active Start: August 07, 2024 End: August 07, 2024 Team Status: Inactive Member Role Status Dates No Primary Care Physician Primary Care Provider Active Start: August 07, 2024 End: August 07, 2024 Dr. Liset Nick MD Attending Provider Active Start: August 07, 2024 End: August 07, 2024 Dr. Liset Nick MD Referring Provider Active Start: August 07, 2024 End: August 07, 2024 Team Status: Inactive Member Role Status Dates No Primary Care Physician Primary Care Provider Active Start: August 22, 2024 End: August 22, 2024 No Primary Care Physician Referring Provider Active Start: August 22, 2024 End: August 22, 2024 Lali Solo CNM Attending Provider Active S tart: August 22, 2024 End: August 22, 2024 Team Status: Inactive Member Role Status Dates No Primary Care Physician Primary Care Provider Active Start: September 04, 2024 End: September 04, 2024 No Primary Care Physician Referring Provider Active Start: September 04, 2024 End: September 04, 2024 Sy Nina [employer], [employer]-C Attending Provider Active Start: September 04, 2024 End: September 04, 2024 Team Status: Inactive Member Role Status Dates No Primary Care Physician Primary Care Provider Active Start: September 18, 2024 End: September 18, 2024 No Primary Care Physician Referring Provider Active Start: September 18, 2024 End: September 18, 2024 Dr. Liset Nick MD Attending Provider Active Start: September 18, 2024 End: September 18, 2024 Team Status: Active Member Role/Relationship Status Dates Dr. Veda Mclaughlin MD Family Provider Active No Primary Care Physician Primary Care Provider Active Team Status: Inactive Member Role/Relationship Status Dates No Primary Care Physician Primary Care Provider Active Start: June 12, 2024 End: June 12, 2024 No Primary Care Physician Referring Provider Active Start: June 12, 2024 End: June 12, 2024 Lali Solo CNM Attending Provider Active S tart: June 12, 2024 End: June 12, 2024 Team Status: Inactive Member Role/Relationship Status Dates No Primary Care Physician Primary Care Provider Active Start: July 10, 2024 End: July 10, 2024 No Primary Care Physician Referring Provider Active Start: July 10, 2024 End: July 10, 2024 Dr. Liset Nick MD Attending Provider Active Start: July 10, 2024 End: July 10, 2024 Team Status: Inactive Member Role/Relationship Status Dates No Primary Care Physician Primary Care Provider Active Start: August 07, 2024 End: August 07, 2024 No Primary Care Physician Referring Provider Active Start: August 07, 2024 End: August 07, 2024 Sy Nina [employer] GRINDER, [employer]ER-C Attending Provider Active Start: August 07, 2024 End: August 07, 2024 Team Status: Inactive Member Role/Relationship Status Dates No Primary Care Physician Primary Care Provider Active Start: August 07, 2024 End: August 07, 2024 Dr. Liset Nick MD Attending Provider Active Start: August 07, 2024 End: August 07, 2024 Dr. Liset Nick MD Referring Provider Active Start: August 07, 2024 End: August 07, 2024 Team Status: Inactive Member Role/Relationship Status Dates No Primary Care Physician Primary Care Provider Active Start: August 22, 2024 End: August 22, 2024 No Primary Care Physician Referring Provider Active Start: August 22, 2024 End: August 22, 2024 Lali Solo CNM Attending Provider Active S tart: August 22, 2024 End: August 22, 2024 Team Status: Inactive Member Role/Relationship Status Dates No Primary Care Physician Primary Care Provider Active Start: September 04, 2024 End: September 04, 2024 No Primary Care Physician Referring Provider Active Start: September 04, 2024 End: September 04, 2024 Sy Nina NP, [employer]-C Attending Provider Active Start: September 04, 2024 End: September 04, 2024 Team Status: Inactive Member Role/Relationship Status Dates No Primary Care Physician Primary Care Provider Active Start: September 18, 2024 End: September 18, 2024 No Primary Care Physician Referring Provider Active Start: September 18, 2024 End: September 18, 2024 Dr. Liset Nick MD Attending Provider Active Start: September 18, 2024 End: September 18, 2024 Team Status: Inactive Member Role/Relationship Status Dates No Primary Care Physician Primary Care Provider Active Start: October 02, 2024 End: October 02, 2024 No Primary Care Physician Referring Provider Active Start: October 02, 2024 End: October 02, 2024 Lali Solo CNM Attending Provider Active S tart: October 02, 2024 End: October 02, 2024 Team Status: Active Member Role/Relationship Status Dates No Primary Care Physician Primary Care Provider Active Team Status: Inactive Member Role/Relationship Status Dates No Primary Care Physician Primary Care Provider Active Start: July 10, 2024 End: July 10, 2024 No Primary Care Physician Referring Provider Active Start: July 10, 2024 End: July 10, 2024 Dr. Liset Nick MD Attending Provider Active Start: July 10, 2024 End: July 10, 2024 Team Status: Inactive Member Role/Relationship Status Dates No Primary Care Physician Primary Care Provider Active Start: August 07, 2024 End: August 07, 2024 No Primary Care Physician Referring Provider Active Start: August 07, 2024 End: August 07, 2024 Sy Nina NP [employer]ER-C Attending Provider Active Start: August 07, 2024 End: August 07, 2024 Team Status: Inactive Member Role/Relationship Status Dates No Primary Care Physician Primary Care Provider Active Start: August 07, 2024 End: August 07, 2024 Dr. Liset Nick MD Attending Provider Active Start: August 07, 2024 End: August 07, 2024 Dr. Liset Nick MD Referring Provider Active Start: August 07, 2024 End: August 07, 2024 Team Status: Inactive Member Role/Relationship Status Dates No Primary Care Physician Primary Care Provider Active Start: August 22, 2024 End: August 22, 2024 No Primary Care Physician Referring Provider Active Start: August 22, 2024 End: August 22, 2024 Lali Solo CNM Attending Provider Active S tart: August 22, 2024 End: August 22, 2024 Team Status: Inactive Member Role/Relationship Status Dates No Primary Care Physician Primary Care Provider Active Start: September 04, 2024 End: September 04, 2024 No Primary Care Physician Referring Provider Active Start: September 04, 2024 End: September 04, 2024 Sy Nina NP [employer]-C Attending Provider Active Start: September 04, 2024 End: September 04, 2024 Team Status: Inactive Member Role/Relationship Status Dates No Primary Care Physician Primary Care Provider Active Start: September 18, 2024 End: September 18, 2024 No Primary Care Physician Referring Provider Active Start: September 18, 2024 End: September 18, 2024 Dr. Liset Nick MD Attending Provider Active Start: September 18, 2024 End: September 18, 2024 Team Status: Inactive Member Role/Relationship Status Dates No Primary Care Physician Primary Care Provider Active Start: October 02, 2024 End: October 02, 2024 No Primary Care Physician Referring Provider Active Start: October 02, 2024 End: October 02, 2024 Lali Solo CNM Attending Provider Active S tart: October 02, 2024 End: October 02, 2024 Team Status: Inactive Member Role/Relationship Status Dates No Primary Care Physician Primary Care Provider Active Start: October 12, 2024 End: October 12, 2024 Lali Solo CNM Attending Provider Active S tart: October 12, 2024 End: October 12, 2024 Lali Solo CNM Referring Provider Active S tart: October 12, 2024 End: October 12, 2024 Team Status: Inactive Member Role/Relationship Status Dates No Primary Care Physician Primary Care Provider Active Start: October 23, 2024 End: October 23, 2024 No Primary Care Physician Referring Provider Active Start: October 23, 2024 End: October 23, 2024 Lali Solo CNM Attending Provider Active S tart: October 23, 2024 End: October 23, 2024 Team Status: Active Member Role/Relationship Status Dates No Primary Care Physician Primary Care Provider Active Start: October 23, 2024 Lali Solo CNM Attending Provider Active S tart: October 23, 2024 Team Status: Inactive Member Role/Relationship Status Dates No Primary Care Physician Primary Care Provider Active Start: October 31, 2024 End: October 31, 2024 No Primary Care Physician Referring Provider Active Start: October 31, 2024 End: October 31, 2024 Dr. Suyapa Fabian , Attending Provider Activ e Start: October 31, 2024 End: October 31, 2024 Team Status: Inactive Member Role/Relationship Status Dates No Primary Care Physician Primary Care Provider Active Start: October 23, 2024 End: October 23, 2024 Lali Solo CNM Attending Provider Active S tart: October 23, 2024 End: October 23, 2024 Goals (unrecognized section and content) Goals may be documented in a n alternate sectionGoals may be documented in an alternate sectionGoals may be documented in an alternate sectionGoals may be documented in an alternate sectionGoals may be documented in an alternate sectionGoals may be documented in an alternate sectionGoals may be documented in an alternate sectionGoals may be documented in an alternate sectionGoals may be documented in an alternate section FOR RECORDS PERTAINING TO PATIENTS WHO ARE OR HAVE BEEN ENROLLED IN A CHEMICAL DEPENDENCY/SUBSTANCEABUSE PROGRAM, SOME INFORMATION MAY BE OMITTED. This clinical summary was aggregated from multiple sources. Caution should be exercised in using it in the provision of clinical care. This summary normalizes information from multiple sources, and as a consequence, information in this document may materially change the coding, format and clinical context of patient data. In addition, data may be omitted in some cases. CLINICAL DECISIONS SHOULD BE BASED ON THE PRIMARY CLINICAL RECORDS. [facility] [employer] [facility]. provides no warranty or guarantee of the accuracy or completeness of information in this document.
[2024-11-06] MEDS: Lactated Ringers 1,000 ML 50 ML IV (08:00)
[2024-11-06] MEDS: Oxytocin 15 Units/NS 250ml 15 UNITS/250 ML IV.SOLN 2 UNITS IV (08:00)
--- NOTE | 2024-11-06 08:00 | HP.PCM.OB_ITS ---
HPI - General General Date of Admission: 11/06/24 HPI Narrative OSCAR VO, is a 24 F who presents for IOL secondary to history of shoulder dystocia. she delivered an infant of similar EFW without complicaiton, mild SD at 8 1/2 pounds preivously. no vb lof good fm no regular ctx Maternal Data Information MARIA T Calculator Estimated Delivery Date Method Current WG Current Estimate 11/11/24 LMP (Certain) 39w 2d PFSH PFSH Medical History Adopted Vaginal delivery hemorrhage Home Medications ?Medication ?Instructions ?Recorded ?Last Taken ?Type multivitamin 1 tab PO QDAY 05/2710/30/24 08:00 History 1 TAB Allergy/AdvReac Type Severity Reaction Status Date / Time tree nut Allergy Anaphylaxis Verified 10/31/24 09:54 Social History adopted: Yes household members: spouse and children housing: house number of children: 2 current occupational status: employed 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[employer] current occupational exposures/hazards: No pets and animals: No history of recent travel: No sexually active: Yes Smoking Status: Never smoker second hand exposure: No alcohol intake: never substance use type: does not use well-balanced diet: daily or most days caffeine: No eating out: rarely or never during the past year weight has: remained stable what type of physical activity do you participate in: none and walking frequency: daily duration: 30-45 minutes/day sangeeta/mu-ism: Alevism seatbelt use: always do you feel safe at home: Yes additional social history: : Abdirahman - [employer]oney History 4 Elective abortions Hx Para 2 Spontaneous abortions 1 Hx # Term Pregnancies 2 Ectopic pregnancies Hx # Pregnancies Multiple births # of living children 2 Past Pregnancies Del. Date Name GA/Weeks Outcome Route Bth Weight Infant Gen Labor Lgth Anesthesia Del Locatn Provider FOB 10/27/17 Marta 40 live - full term 8lbs 6oz Female 16.5 hours epidural [facility] Dr. Jasbir Gary 12/28/19 6 03/02/21 Fern 39 live - full term 71b 12oz Female epidural [facility] Shannon Gary Delivery Date: 10/27/17 Last Updated by: Nicol Pabon lightly stained meconium; unable to deliver shoulder; 2nd degree episiotomy cut & then with maternal pushing effort the posterior shoulder delivered; uterine atony-cytotec $ metheringine in addition to pitocin; TAUS performed & gentle banjo curettage performed; cervical laceration 5 o'clock Delivery Date: 12/28/19 Last Updated by: Daylin Mcnally RN No intervention needed Delivery Date: 03/02/21 Last Updated by: Luba Vo IOL 39 wk Visit Details Expected Delivery Route/Plan Labor Preferences- CB/BF classes: no labor support person: Abdirahman labor intervention preferences: [] pain management options preferred: epidural if requested cut cord/dad catch: yes : yes PP control planned: discussed discussed possible routes of delivery and associated risks: [] special requests: [] Plans Covid status: [] Flu vaccine: [] Tdap vaccine: declined Rhogam: na LARC form signed: yes Problem list reviewed and updated with the most current plan of care details and appropriate orders placed. Relevant counseling for the gestational age provided. Continue routine care and follow up unless otherwise noted in visit notes/problem list details OB Flowsheet Initial Weight: Not Recorded Date -?-?-?-?-?-?-?-?-?-?-?-?- EGA Weight BP Urine Prot -?-?-?-?-?-?-?-?-?-?-?-?- Glucose FHR FuHt Pres Dilation -?-?-?-?-?-?-?-?-?-?-?-?- Effaced St Visit Note 04/17/24 -?-?-?-?-?-?-?-?-?-?-?-?- 10w 2d 219 lb 2 oz 113/73 -?-?-?-?-?-?-?-?-?-?-?-?- 171 -?-?-?-?-?-?-?-?-?-?-?-?- JV- CRL consiste nt with LMP. Declines nipt. wants to do new ob labs next visit due to time restraints today. 05/15/24 -?-?-?-?-?-?-?-?-?-?-?-?- 14w 2d 218 lb 6 oz 122/80 Nega tive -?-?-?-?-?-?-?-?-?-?-?-?- Negative 154 -?-?-?-?-?-?-?-?-?-?-?-?- MH-No VB. Brief US confirm live IUP. PN labs. 06/12/24 -?-?-?-?-?-?-?-?-?-?-?-?- 18w 2d 214 lb 6 oz 110/69 Nega tive -?-?-?-?-?-?-?-?-?-?-?-?- Negative 145 -?-?-?-?-?-?-?-?-?-?-?-?- KW- no vb/kristi engel. +flutters. US scheduled 06/29. no concerns 07/10/24 -?-?-?-?-?-?-?-?-?-?-?-?- 22w 2d 211 lb 4 oz 128/84 Nega tive -?-?-?-?-?-?-?-?-?-?-?-?- Negative 150 -?-?-?-?-?-?-?-?-?-?-?-?- SM- no vb lof go od fm no reuglar ctx 08/07/24 -?-?-?-?-?-?-?-?-?-?-?-?- 26w 2d 215 lb 8 oz 124/74 Nega tive -?-?-?-?-?-?-?-?-?-?-?-?- Negative 141 26 -?-?-?-?-?-?-?-?-?-?-?-?- MH-No VB, LOF. G ood Fm. Larc. 28 wk labs pending. 08/22/24 -?-?-?-?-?-?-?-?-?-?-?-?- 28w 3d 217 lb 120/82 Negative -?-?-?-?-?-?-?-?-?-?-?-?- Negative 150 30 -?-?-?-?-?-?-?-?-?-?-?-?- KW- no vb/lof/ct x. good fm had follow up US today. having some anxiety at night. declines Tdap vaccine. KW- no vb/lof/ctx. good fm h ad follow up US today. having some anxiety at night. declines medications but did discuss counseling and stress reducing techniques she would like to try. declines Tdap vaccine. 09/04/24 -?-?-?-?-?-?-?--?-?-?-?-?- 30w 2d 219 lb 6 oz 107/71 Nega tive -?-?-?-?-?-?-?-?-?-?-?-?- Negative 128 31 -?-?-?-?-?-?-?-?-?-?-?-?- MH-No VB, LOF. G ood Fm. Denies concerns 09/18/24 -?-?-?-?-?-?-?-?-?-?-?-?- 32w 2d 223 lb 2 oz 117/79 Nega tive -?-?-?-?-?-?-?-?-?-?-?-?- Negative 130 33 -?-?--?-?-?-?-?-?-?-?-?-?- SM- no vb lof go od fm no regular ctx 10/02/24 -?-?-?-?-?-?-?-?-?-?-?-?- 34w 2d 225 lb 115/76 Negative -?-?-?-?-?-?-?-?-?-?-?-?- Negative 130 35 -?-?-?-?-?-?-?-?-?-?-?-?- KW- no vb/lof/ct x. good fm. no concerns today. growth US for hx shoulder dystocia 10/23/24 -?-?-?-?-?-?-?-?-?-?-?-?- 37w 2d 229 lb 6 oz 127/82 Nega tive -?-?-?-?-?-?-?-?-?-?-?-?- Negative 135 38 Cephalic 0 .5 -?-?-?-?-?-?-?-?-?-?-?-?- 40 -2 KW- no vb/ lof/ctx. good fm. GBS today KW- no vb/lof/ctx. good fm. GBS today. growth US reviewed. EFW at 40 weeks will be 3859 grams. had SD with 8.6 baby. at 40 weeks will be about the same- discussed 39 week IOL. KW- no vb/lof/ctx. good fm. GBS today. growth US reviewed. EFW at 40 weeks will
--- NOTE | 2024-11-06 08:00 | PCM.HP.OB ---
HPI - General General Date of Admission: 11/06/24 HPI Narrative OSCAR VO, is a 24 F who presents for IOL secondary to history of shoulder dystocia. she delivered an infant of similar EFW without complicaiton, mild SD at 8 1/2 pounds preivously. no vb lof good fm no regular ctx Maternal Data Information MARIA T Calculator Estimated Delivery Date Method Current WG Current Estimate 11/11/24 LMP (Certain) 39w 2d PFSH PFSH Medical History Adopted Vaginal delivery hemorrhage Home Medications ?Medication ?Instructions ?Recorded ?Last Taken ?Type multivitamin 1 tab PO QDAY 06/12/24 10/30/24 08:00 History 1 TAB Allergy/AdvReac Type Severity Reaction Status Date / Time tree nut Allergy Anaphylaxis Verified 10/31/24 09:54 Social History adopted: Yes household members: spouse and children housing: house number of children: 2 current occupational status: employed 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[employer] current occupational exposures/hazards: No pets and animals: No history of recent travel: No sexually active: Yes Smoking Status: Never smoker second hand exposure: No alcohol intake: never substance use type: does not use well-balanced diet: daily or most days caffeine: No eating out: rarely or never during the past year weight has: remained stable what type of physical activity do you participate in: none and walking frequency: daily duration: 30-45 minutes/day sangeeta/taoist: Voodoo seatbelt use: always do you feel safe at home: Yes additional social history: : Abdirahman - Toney History 4 Elective abortions Hx Para 2 Spontaneous abortions 1 Hx # Term Pregnancies 2 Ectopic pregnancies Hx # Pregnancies Multiple births # of living children 2 Past Pregnancies Del. Date Name GA/Weeks Outcome Route Bth Weight Gen Labor Lgth Anesthesia Del Locatn Provider FOB 10/27/17 Marta 40 live - full term 8lbs 6oz Female 16.5 hours epidural [facility] Dr. Jasbir Gary 12/28/19 6 03/02/21 Fern 39 live - full term 71b 12oz Female epidural [facility] Shannon Gary Delivery Date: 10/27/17 Last Updated by: Nicol Pabon lightly stained meconium; unable to deliver shoulder; 2nd degree episiotomy cut & then with maternal pushing effort the posterior shoulder delivered; uterine atony-cytotec $ metheringine in addition to pitocin; TAUS performed & gentle banjo curettage performed; cervical laceration 5 o'clock Delivery Date: 12/28/19 Last Updated by: Daylin Mcnally RN No intervention needed Delivery Date: 03/02/21 Last Updated by: Luba Vo IOL 39 wk Visit Details Expected Delivery Route/Plan Labor Preferences- CB/BF classes: no labor support person: Abdirahman labor intervention preferences: [] pain management options preferred: epidural if requested cut cord/dad catch: yes : yes PP control planned: discussed discussed possible routes of delivery and associated risks: [] special requests: [] Plans Covid status: [] Flu vaccine: [] Tdap vaccine: declined Rhogam: na LARC form signed: yes Problem list reviewed and updated with the most current plan of care details and appropriate orders placed. Relevant counseling for the gestational age provided. Continue routine care and follow up unless otherwise noted in visit notes/problem list details OB Flowsheet Initial Weight: Not Recorded Date <del>?</del> EGA Weight BP Urine Prot <del>?</del> Glucose FHR FuHt Pres Dilation <del>?</del> Effaced St Visit Note 04/17/24 <del>?</del> 10w 2d 219 lb 2 oz 113/73 <del>?</del> 171 <del>?</del> JV- CRL consistent with LMP. Declines nipt. wants to do new ob labs next visit due to time restraints today. 05/15/24 <del>?</del> 14w 2d 218 lb 6 oz 122/80 Negative <del>?</del> Negative 154 <del>?</del> MH-No VB. Brief US confirm live IUP. PN labs. 06/12/24 <del>?</del> 18w 2d 214 lb 6 oz 110/69 Negative <del>?</del> Negative 145 <del>?</del> KW- no vb/cramping. +flutters. US scheduled 06/29. no concerns 07/10/24 <del>?</del> 22w 2d 211 lb 4 oz 128/84 Negative <del>?</del> Negative 150 <del>?</del> SM- no vb lof good fm no reuglar ctx 08/07/24 <del>?</del> 26w 2d 215 lb 8 oz 124/74 Negative <del>?</del> Negative 141 26 <del>?</del> MH-No VB, LOF. Good Fm. Larc. 28 wk labs pending. 08/22/24 <del>?</del> 28w 3d 217 lb 120/82 Negative <del>?</del> Negative 150 30 <del>?</del> KW- no vb/lof/ctx. good fm had follow up US today. having some anxiety at night. declines Tdap vaccine. KW- no vb/lof/ctx. good fm had follow up US today. having some anxiety at night. declines medications but did discuss counseling and stress reducing techniques she would like to try. declines Tdap vaccine. 09/04/24 <del>?</del> 30w 2d 219 lb 6 oz 107/71 Negative <del>?</del> Negative 128 31 <del>?</del> MH-No VB, LOF. Good Fm. Denies concerns 09/18/24 <del>?</del> 32w 2d 223 lb 2 oz 117/79 Negative <del>?</del> Negative 130 33 <del>?</del> SM- no vb lof good fm no regular ctx 10/02/24 <del>?</del> 34w 2d 225 lb 115/76 Negative <del>?</del> Negative 130 35 <del>?</del> KW- no vb/lof/ctx. good fm. no concerns today. growth US for hx shoulder dystocia 10/23/24 <del>?</del> 37w 2d 229 lb 6 oz 127/82 Negative <del>?</del> Negative 135 38 Cephalic 0.5 <del>?</del> 40 -2 KW- no vb/lof/ctx. good fm. GBS today KW- no vb/lof/ctx. good fm. GBS today. growth US reviewed. EFW at 40 weeks will be 3859 grams. had SD with 8.6 baby. at 40 weeks will be about the same- discussed 39 week IOL. KW- no vb/lof/ctx. good fm. GBS today. growth US reviewed. EFW at 40 weeks will be 3859 grams. had SD with 8.6 baby. at 40 weeks will be about the same- discussed 39 week IOL- had last and is desiring again 10/31/24 <del>?</del> 38w 3d 231 lb 108/76 Negative <del>?</del> Negative 134 38 Cephalic 1 <del>?</del> 60 -2 JV- patient would like IOL at 39 weeks due to fatigue. no lof, vaginal bleeding, or dec fm. NST FHR Rate Baby A Baseline: 130 Variability:: Moderate Accelerations:: 15 x 15 Decelerations:: None NST Reactive:: Yes FHR Category:: Category I Uterine Activity:: irregular ROS Constitutional Constitutional: Reports systems reviewed and no addt'l complaints, except as documented Eyes Eyes: Denies change in vision ENT HEENT: Reports systems reviewed and no addt'l complaints, except as documented; Denies headache(s) Cardiovascular Cardiovascular: Reports systems reviewed and no addt'l complaints, except as documented; Denies chest pain or dyspnea Respiratory/Chest Respiratory/Chest: Reports systems reviewed and no addt'l complaints, except as documented Gastrointestinal Gastrointestinal: Reports systems reviewed and no addt'l complaints, except as documented; Denies abdominal pain Genitourinary Genitourinary: Reports systems reviewed and no addt'l complaints, except as documented, contractions Details: present (irregular) and movement Details: present; Denies dysuria or genital lesions Musculoskeletal Musculoskeletal: Reports systems reviewed and no addt'l complaints, except as documented Neurologic Neurologic: Reports systems reviewed and no addt'l complaints, except as documented Endocrine Endocrinology: Reports systems reviewed and no addt'l complaints, except as documented Vital Signs Vital Signs Vital Signs: Weight Weight: 230 lb 2.601 oz Body Mass Index (BMI) 39.4 Physical Exam Const alert, oriented x3, no apparent distress and healthy appearing HEENT normocephalic and moist oral mucous membranes Head and Scalp: atraumatic Neck full ROM, no lymphadenopathy, supple and thyroid normal General: trachea midline Lymph Lymphatic: no lymphadenopathy noted Chest inspection of chest normal Resp normal respiratory effort Cardio regular rate GI soft to palpation and non-tender GI Narrative: gravid Inspection: gravid external exam normal Manual OB Exam: estimated gestational size appropriate, presentation cephalic, dilated, effaced and station Extremity normal to inspection General Extremity: Negative for edema Skin no rashes or lesions noted Neuro no focal motor deficits and deep tendon reflexes 2+ bilaterally Motor Exam: strength 5/5 throughout and clonus absent Psych mental status grossly normal Labs Labs Labs: Blood Type O POSITIVE Antibody Screen NEGATIVE Hct 37.1 % (37-47) Hgb 12.6 g/dL (12.0-15.0) Obstetrics Ultrasound Syphilis Total Ab Nonreactive (Nonreactive) Rubella IgG Antibody Reactive (Nonreactive) Hep Bs Antigen Non-Reactive (Nonreactive) Hepatitis C Antibody Non-Reactive (Nonreactive) Chlamydia DNA (KENNEDY) Negative (Negative) N.gonorrhoeae DNA (KENNEDY) Negative (Negative) HIV 1&2 Antibody Nonreactive (Nonreactive) Glucose 1 Hr 50 gm 120 mg/dL (70-140) Gest Glucose Tolerance MG/DL Rhogam given: No Assessment & Plan (1) : QUALIFIERS: Weeks of gestation: 38 weeks Qualified Code(s): Z3A.38 - 38 weeks gestation of COMMENT: GBS neg, Discussed genetic testing - undecided (carrier testing done in prior - NEG) Declines NIPT and AFP, nl anatomy (2) Supervision of high-risk : QUALIFIERS: Trimester: third trimester Qualified Code(s): O09.93 - Supervision of high risk , unspecified, third trimester COMMENT: PRR, , MARIA T 11/11/24, boy Annmarie PC: Marta & Fern, : Abdirahman (3) History of hemorrhage, currently : COMMENT: 2020 (4) History of shoulder dystocia in prior , currently : COMMENT: 2017 8lb 6 ounces, 7 12 didn't have SD. plan IOL at 39 weeks growth US at 36 weeks (68% EFW at 39 weeks 3609 grams about 7.9 lbs) (5) Obesity affecting : QUALIFIERS: Trimester: second trimester Obesity type affecting : unspecified obesity Qualified Code(s): O99.212 - Obesity complicating , second trimester COMMENT: BMI 34.9, HgBA1C w/NOB (6) Echogenic focus of heart of fetus affecting antepartum care of mother: QUALIFIERS: Fetus number: single or unspecified fetus Qualified Code(s): O35.BXX0 - Maternal care for other (suspected) abnormality and damage, cardiac anomalies, not applicable or unspecified COMMENT: discussed and declined NIPT (7) Encounter for induction of labor: PLAN: Plan Patient presents IOL, plan management for with pitocin/AROM. Pain management: plans epidural. GBS negative. Management of any complications: h/o SD I have reviewed the [facility] and made any clinically relevant updates.
[2024-11-06] MEDS: 0.9% Normal Saline Single 100 ML IV.SOLN. INTRA-UTER (08:23)
[2024-11-06 08:32] LABS: Hematocrit 34.5 % (37-47); Hemoglobin 12.1 g/dL (12.0-15.0); Immature Granulocytes Count 0.080 X10^3/uL (0.0-0.0); Mean Corp Hgb Conc 35.1 g/dL (32-36); Mean Corpuscular Volume 87.6 fL (81-99); Mean Platelet Vol. 10.3 fl (6.2-12.0); NRBC Flagged by Analyzer 0 % (0-5); Platelet Count 259 K/mm3 (150-450); RBC Distribution Width CV 13.2 % (11.6-14.6); RBC Distribution Width SD 41.2 fl (35.1-43.9); Red Blood Count 3.94 M/mm3 (4.2-5.4); White Blood Count 11.1 K/mm3 (4.4-11.0)
[2024-11-06 08:50] LABS: Syphilis Antibodies Nonreactive (Nonreactive)
[2024-11-06] MEDS: Lactated Ringers 1,000 ML 999 ML IV (18:03)
[2024-11-06] MEDS: fentaNYL-bupivacaine (epidural) 100 ML BAG EPIDURAL (18:22)
[2024-11-06] MEDS: Lactated Ringers 1,000 ML 200 ML IV (19:04)
[2024-11-06] MEDS: Oxytocin 15 Units/NS 250ml 15 UNITS/250 ML IV.SOLN 334 UNITS IV (20:55)
--- NOTE | 2024-11-06 20:58 | EX.PCM.OBVAG ---
Assessment & Plan (1) Vaginal delivery: COMMENT: SM IOL SD boy [place] 39 Maternal Data Information MARIA T Calculator Estimated Delivery Date Method Current WG Current Estimate 11/11/24 LMP (Certain) 39w 2d Vaginal Delivery Maternal Presentation Maternal Presentation: see assessment and plan Vaginal Delivery Information Procedure Performed: Spontaneous Vaginal Delivery Surgeon/Practitioner: Liset Nick Date of Procedure: 11/06/24 Type of anesthesia: Epidural Findings Description of procedure: Patient began pushing and delivered the head in the THAD presentation. The head was delivered atraumatically and a loose nuchal cord ?1 was identified and easily reduced over the infant's head. The anterior (RIGHT) and posterior shoulders delivered without complication followed by the rest of the and the infant was placed on the maternal abdomen. Delayed cord clamping was employed for approximately 60 seconds. Cord was clamped and cut and gentle traction was applied to the cord and the placenta delivered spontaneously immediately following it was noted to be intact with three-vessel cord. The perineum and vagina were inspected and was noted to have no laceration. EBL was 100 cc. Patient and tolerated delivery well. 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
--- NOTE | 2024-11-06 21:00 | DCINST_ITS ---
Discharge Instructions DC O2, CPAP, BIPAP needs Home O2 Discharge instructions: No Dressing / Incision Discharge Activity: Return to Normal Activity, May Not Drive (while taking narcotic pain medications.) and May Shower May resume sexual activity in: 4-6 weeks Dressing / Incision Call your doctor if your incision/area has: Continuous Slow Oozing, Sudden Increased Bleeding, Increased Pain/ Swelling, Increased Redness and Foul Smelling Discharge Follow Up Care Please Follow Up With: Liset Nick MD When: Call [phone] to make an appointment with your doctor in 6 weeks. If you had elevated blood pressure or 4th degree laceration, you will need to be seen in 2 weeks. Test Results: Test results from this visit will be discussed in further detail at your follow- up appointment, if applicable. Discharge Plan Admission Admit Date/Time: 11/06/24 06:59 Attending Provider: Liset Nick Primary Care Provider: Peace Physician,Sil Primary Discharge Orders/Prescriptions Prescriptions: No Action multivitamin Tablet 1 tab PO QDAY Referrals / Follow Up: Care Physician,Sil Primary [Primary Care Provider] -
[2024-11-06] MEDS: Oxytocin 15 Units/NS 250ml 15 UNITS/250 ML IV.SOLN 83 UNITS IV (21:28)
[2024-11-07 03:50] VITALS: BP 113/75; PULSE 86; RESP 16; TEMP 36.8; O2SAT 99
--- NOTE | 2024-11-07 07:42 | PCM.PN.OB ---
Subjective Subjective Patient doing well without complaints. Tolerating PO. Ambulating and voiding without difficulty. Feeding well. Denies chest pain, shortness of breath, calf pain/swelling, fevers, chills, lightheadedness. Objective Data Objective Data Vital Signs: Vital Signs Temp Pulse Resp BP Pulse Ox O2 Del Method 98.2 F 86 16 113/75 99 Room Air 11/07/24 03:50 11/07/24 03:50 11/07/24 03:50 11/07/24 03:50 11/07/24 03:50 11/07/24 03:50 Oxygen Delivery Method Room Air Weight: 230 lb 2.601 oz Body Mass Index (BMI) 39.4 Intake & Output: Intake and Output for Last 24 Hours 11/05/24 11/06/24 11/07/24 23:59 23:59 23:59 Intake Total 2819.10 / 2819.10 250 / 250 Output Total 300 / 300 800 / 800 Balance 2519.10 / 2519.10 -550 / -550 Lab / Micro Data Attestation: I reviewed the patient's lab results. 11/06/24 08:00 Labs: Laboratory Results - last 24 hr 11/06/24 08:00: WBC 11.1 H, RBC 3.94 L, Hgb 12.1, Hct 34.5 L, MCV 87.6, MCH 30.7, MCHC 35.1, RDW Std Deviation 41.2, RDW Coeff of [place] 13.2, Plt Count 259, MPV 10.3, Immature Gran % (Auto) 0.700, Neut % (Auto) 77.6 H, Lymph % (Auto) 14.5 L, [place] % (Auto) 6.4, Eos % (Auto) 0.5, Baso % (Auto) 0.3, Absolute Neuts (auto) 8.6 H, Absolute Lymphs (auto) 1.61, Nucleated RBC % 0, Syphilis Total Ab Nonreactive, Blood Type O POSITIVE, Antibody Screen NEGATIVE ROS Constitutional Constitutional: Reports systems reviewed and no addt'l complaints, except as documented; Denies anorexia or headache(s) Cardiovascular Cardiovascular: Reports systems reviewed and no addt'l complaints, except as documented; Denies dizziness, dyspnea, nausea or tachypnea Respiratory/Chest Respiratory/Chest: Reports systems reviewed and no addt'l complaints, except as documented; Denies cough, dyspnea, shortness of breath at rest or tachypnea Gastrointestinal Gastrointestinal: Reports systems reviewed and no addt'l complaints, except as documented; Denies abdominal pain, constipation or nausea Genitourinary Genitourinary: Reports systems reviewed and no addt'l complaints, except as documented; Denies burning urination, difficulty urinating, dysuria, urinary frequency or urinary incontinence Musculoskeletal Musculoskeletal: Reports systems reviewed and no addt'l complaints, except as documented Integumentary Integumentary: Reports systems reviewed and no addt'l complaints, except as documented Neurologic Neurologic: Reports systems reviewed and no addt'l complaints, except as documented; Denies abnormal speech, dizziness or headache(s) Psychiatric Psychiatric: Reports systems reviewed and no addt'l complaints, except as documented Endocrine Endocrinology: Reports systems reviewed and no addt'l complaints, except as documented Hematologic/Lymphatic Hematologic/Lymphatic: Reports systems reviewed and no addt'l complaints, except as documented Physical Exam Const alert, oriented x3 and no apparent distress Neck full ROM Resp normal respiratory effort, normal air movement and no retractions Effort and Inspection: able to speak in complete sentences and symmetric chest movement GI soft to palpation Bladder / Kidney Exam: bladder normal to palpation Uterus Palpation: uterus fundus firm Extremity normal to inspection and full ROM Psych mental status grossly normal, thought process normal and cooperative Assessment & Plan (1) Vaginal delivery: COMMENT: SM IOL SD boy [place] 39 PLAN: s/p PPD # 1 1. routine post delivery care 2. breast feeding- support given 3. rh positive 4. rubella immune 5. Discharge home (2) Encounter for induction of labor: (3) Echogenic focus of heart of fetus affecting antepartum care of mother: QUALIFIERS: Fetus number: single or unspecified fetus Qualified Code(s): O35.BXX0 - Maternal care for other (suspected) abnormality and damage, cardiac anomalies, not applicable or unspecified COMMENT: discussed and declined NIPT (4) Obesity affecting : QUALIFIERS: Trimester: second trimester Obesity type affecting : unspecified obesity Qualified Code(s): O99.212 - Obesity complicating , second trimester COMMENT: BMI 34.9, HgBA1C w/NOB (5) History of shoulder dystocia in prior , currently : COMMENT: 2017 8lb 6 ounces, 7 12 didn't have SD. plan IOL at 39 weeks growth US at 36 weeks (68% EFW at 39 weeks 3609 grams about 7.9 lbs) (6) History of hemorrhage, currently : COMMENT: 2020 (7) Supervision of high-risk : QUALIFIERS: Trimester: third trimester Qualified Code(s): O09.93 - Supervision of high risk , unspecified, third trimester COMMENT: PRR, , MARIA T 11/11/24, boy [place] PC: Toi, : Abdirahman (8) : QUALIFIERS: Weeks of gestation: 38 weeks Qualified Code(s): Z3A.38 - 38 weeks gestation of COMMENT: GBS neg, Discussed genetic testing - undecided (carrier testing done in prior - NEG) Declines NIPT and AFP, nl anatomy Charges/Coding Multi Select Codes Urinary/Genital Urinary/Genital CPT Codes: No Charge
[2024-11-07 08:30] VITALS: BP 106/77; PULSE 90; RESP 16; TEMP 36.1; O2SAT 98
[2024-11-07 12:15] VITALS: BP 119/72; PULSE 84; RESP 16; TEMP 36.2; O2SAT 96
[2024-11-07 16:00] VITALS: BP 117/67; PULSE 75; RESP 16; TEMP 36.1; O2SAT 98
[2024-11-07] MEDS: Senna/Docusate Sodium 1 Tablet PO (18:09)
[2024-11-07 19:35] VITALS: BP 121/79; PULSE 70; RESP 16; TEMP 36.4; O2SAT 97
== END 2024-11-07 21:56 | disposition home or self-care (01) | DRG 560 ==
PROVIDERS: Admitting Provider Obstetrics & Gynecology; Referring Provider Obstetrics & Gynecology; Visit Provider Obstetrics & Gynecology
DX: O99.214 Obesity complicating childbirth (principal); Z37.0 Single live birth; E66.9 Obesity, unspecified; O69.81X0 Labor and delivery complicated by cord around neck, without compression, not applicable or unspecified; Z3A.39 39 weeks gestation of pregnancy; Z87.59 Personal history of other complications of pregnancy, childbirth and the puerperium
CPT/HCPCS: 59025; 59050; 85025; 86780; 86850; 86900; 86901; 99221; G0378

== ENCOUNTER → 2025-03-28 | Outpatient (CLI) | payer MEDICAID, SELFPAY | END | disposition home or self-care (01) | LOC: LAB 10:57 | PROVIDERS: Referring Provider Otolaryngology; Visit Provider Otolaryngology | DX: T78.40XA Allergy, unspecified, initial encounter (principal) | CPT/HCPCS: 36415 ==